=== PATIENT | male | born 1965 | race Caucasian/White ===

== ENCOUNTER 2022-05-01 11:26 | Outpatient (REF) | payer OTHER, SELFPAY ==
[2022-05-01 11:43] LABS: MANUAL DIFF FLAG NO
[2022-05-01 12:14] LABS: Basophils Percent Auto 0.4 % (0-2); Eosinophils Absolute Auto 0.1 X10*3/uL (0.0-0.4); Eosinophils Percent Auto 1.2 % (0-4); Hematocrit 45.7 % (42.0-52.0); Hemoglobin 15.8 g/dl (14.0-18.0); Imm Gran Abs Auto 0.02 X10*3/uL (0.00-0.03); Imm Gran Pct Auto 0.2 % (0.0-0.4); Lymphocytes Absolute Auto 2.7 X10*3/uL (1.2-4.9); Lymphocytes Percent Auto 29.3 % (20-40); Mean Corpuscular HGB Conc 34.6 g/dl (31.0-36.0); Mean Corpuscular Hemoglobin 29.6 pg (27.0-33.0); Mean Corpuscular Volume 85.7 fL (80.0-98.0); Mean Platelet Volume 9.7 fL (9.4-12.4); Monocytes Absolute Auto 0.8 X10*3/uL (0.1-1.2); Monocytes Percent Auto 8.9 % (2-11); Neutrophils Absolute Auto 5.5 x10*3/uL (2.0-8.3); Platelet Count 433 X10*3/uL (160-400); Red Blood Count 5.33 X10*6/uL (4.60-5.80); Red Cell Distribution Width 13.2 % (11.0-16.0); White Blood Count 9.2 X10*3/uL (4.8-10.8)
[2022-05-01 12:51] LABS: Alanine Aminotransferase 49 U/L (0-40); Albumin Level 4.5 g/dL (3.5-5.0); Alkaline Phosphatase 90 U/L (39-117); Anion Gap 14 (12-20); Aspartate Amino Transferase 35 U/L (5-37); Bilirubin Total 0.8 mg/dL (0.0-1.0); Blood Urea Nitrogen 17 mg/dL (9-16); Calcium 9.9 mg/dL (8.4-10.2); Carbon Dioxide 23 mmol/L (22-29); Chloride 109 mmol/L (96-108); Cholesterol 212 mg/dL; Estimated Glomerular Filt Rate > 60; Glucose Fasting 100 mg/dL (60-99); HDL Cholesterol 44 mg/dL; LDL Cholesterol Calculated 131 mg/dl; Potassium 4.4 mmol/L (3.3-5.1); Sodium 142 mmol/L (135-145); Total Protein 7.2 g/dL (6.5-8.0); Triglycerides 189 mg/dL; Uric Acid 6.8 mg/dL (3.4-7.0)
[2022-05-01 12:54] LABS: Erythrocyte Sedimentation Rate 6 MM/HR (0-15)
[2022-05-01 13:07] LABS: Free T4 (Free Thyroxine) 0.81 ng/dL (0.71-1.85); Prostate Specific Antigen 1.31 ng/mL (<0.05-4.0); Thyroid Stimulating Hormone 0.61 uIU/mL (0.32-4.0)
== END 2022-05-01 11:27 | disposition home or self-care (01) ==
LOC: HO.LAB 11:26
PROVIDERS: PCP Internal Medicine Medical Oncology; Visit Provider Internal Medicine Medical Oncology
DX: K21.9 Gastro-esophageal reflux disease without esophagitis (principal); E78.2 Mixed hyperlipidemia; F41.9 Anxiety disorder, unspecified; E66.9 Obesity, unspecified; R41.3 Other amnesia; Z86.59 Personal history of other mental and behavioral disorders; Z12.5 Encounter for screening for malignant neoplasm of prostate
CPT/HCPCS: 36415; 80053; 80061; 84153; 84439; 84443; 84550; 85025; 85652

== ENCOUNTER 2022-10-16 10:58 | Outpatient (REF) | payer OTHER, SELFPAY ==
[2022-10-16 11:32] LABS: MANUAL DIFF FLAG NO
[2022-10-16 12:38] LABS: Basophils Percent Auto 0.5 % (0-2); Eosinophils Absolute Auto 0.2 X10*3/uL (0.0-0.4); Eosinophils Percent Auto 2.8 % (0-4); Hematocrit 48.5 % (42.0-52.0); Hemoglobin 16.9 g/dl (14.0-18.0); Imm Gran Abs Auto 0.02 X10*3/uL (0.00-0.03); Imm Gran Pct Auto 0.2 % (0.0-0.4); Lymphocytes Absolute Auto 2.9 X10*3/uL (1.2-4.9); Lymphocytes Percent Auto 34.2 % (20-40); Mean Corpuscular HGB Conc 34.8 g/dl (31.0-36.0); Mean Corpuscular Hemoglobin 30.4 pg (27.0-33.0); Mean Corpuscular Volume 87.2 fL (80.0-98.0); Mean Platelet Volume 10.7 fL (9.4-12.4); Monocytes Absolute Auto 0.8 X10*3/uL (0.1-1.2); Monocytes Percent Auto 9.1 % (2-11); Neutrophils Absolute Auto 4.5 x10*3/uL (2.0-8.3); Neutrophils Percent Auto 53.2 % (45-73); Platelet Count 362 X10*3/uL (160-400); Red Blood Count 5.56 X10*6/uL (4.60-5.80); White Blood Count 8.5 X10*3/uL (4.8-10.8)
[2022-10-16 13:50] LABS: Alanine Aminotransferase 69 U/L (0-40); Albumin Level 4.3 g/dL (3.5-5.0); Alkaline Phosphatase 88 U/L (39-117); Anion Gap 16 (12-20); Aspartate Amino Transferase 48 U/L (5-37); Bilirubin Total 0.8 mg/dL (0.0-1.0); Blood Urea Nitrogen 18 mg/dL (9-16); Calcium 9.6 mg/dL (8.4-10.2); Carbon Dioxide 21 mmol/L (22-29); Chloride 109 mmol/L (96-108); Cholesterol 221 mg/dL; Estimated Glomerular Filt Rate > 60; Glucose Fasting 110 mg/dL (60-99); HDL Cholesterol 39 mg/dL; LDL Cholesterol Calculated 132 mg/dl; Potassium 4.2 mmol/L (3.3-5.1); Sodium 142 mmol/L (135-145); Total Protein 6.7 g/dL (6.5-8.0); Triglycerides 254 mg/dL
[2022-10-16 14:04] LABS: Prostate Specific Antigen 1.79 ng/mL (<0.05-4.0)
== END 2022-10-16 10:59 | disposition home or self-care (01) ==
LOC: HO.LAB 10:58
PROVIDERS: PCP Internal Medicine Medical Oncology; Visit Provider Internal Medicine Medical Oncology
DX: Z12.5 Encounter for screening for malignant neoplasm of prostate (principal); E78.2 Mixed hyperlipidemia; E66.9 Obesity, unspecified; N40.0 Benign prostatic hyperplasia without lower urinary tract symptoms; M18.12 Unilateral primary osteoarthritis of first carpometacarpal joint, left hand; M18.11 Unilateral primary osteoarthritis of first carpometacarpal joint, right hand
CPT/HCPCS: 36415; 80053; 80061; 82306; 84153; 85025; 99202

== ENCOUNTER 2022-11-06 14:09 | Outpatient (REF) | payer OTHER, SELFPAY ==
--- NOTE | ~2022-11-06 | XR_ITS ---
EXAMINATION: XR SHOULDER, LEFT CLINICAL INFORMATION: Left shoulder pain. COMPARISON: None TECHNIQUE: Three views of the left shoulder. FINDINGS: The bones and soft tissues are normal. No fracture. Glenohumeral and acromioclavicular alignment is anatomic with normal joint space. No abnormal soft tissue calcifications. XR/XR shoulder LT min 2V IMPRESSION: Unremarkable left shoulder.
== END 2022-11-06 14:10 | disposition home or self-care (01) ==
LOC: HO.HOSX 14:09
PROVIDERS: Visit Provider Physician Assistant
DX: M75.102 Unspecified rotator cuff tear or rupture of left shoulder, not specified as traumatic (principal)
CPT/HCPCS: 73030; 99202

== ENCOUNTER 2022-12-07 14:00 | Outpatient (RCR) | payer OTHER, SELFPAY ==
--- NOTE | 2022-12-31 08:42 | MHC.PT.DC ---
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 AT LAST ATTENDED VISIT HE DEMONSTRATED FULL UE ROM. Electronically signed by: JOHN VÁZQUEZ PT DPT Please sign and return to therapist. Thank you for your referral.
== END 2022-12-31 08:42 | disposition home or self-care (01) ==
LOC: HO.PT 14:00
PROVIDERS: PCP Physician Assistant Medical; Visit Provider Physician Assistant
DX: M75.102 Unspecified rotator cuff tear or rupture of left shoulder, not specified as traumatic (principal)
CPT/HCPCS: 97110; 97162; 97530

== ENCOUNTER 2022-12-25 15:58 | Outpatient (REF) | payer OTHER, SELFPAY ==
--- NOTE | ~2022-12-25 | XR_ITS ---
EXAMINATION: XR KNEE, RIGHT CLINICAL INFORMATION: Knee pain COMPARISON: None available. TECHNIQUE: Four views of the right knee. FINDINGS: There is mild loss of tricompartment joint space with mild superior patellar spurring. No acute fracture, lytic or sclerotic process seen. No abnormal joint effusion. XR/XR knee RT 2V IMPRESSION: Mild degenerative changes right knee. No visible acute fracture or dislocation seen.
== END 2022-12-25 15:59 | disposition home or self-care (01) ==
LOC: HO.XRAY 15:58
PROVIDERS: PCP Internal Medicine Medical Oncology; Visit Provider Internal Medicine Medical Oncology
DX: M25.561 Pain in right knee (principal)
CPT/HCPCS: 73560

== ENCOUNTER 2023-02-05 07:34 | Outpatient (REF) | payer OTHER, SELFPAY ==
--- NOTE | ~2023-02-05 | XR_ITS ---
EXAMINATION: XR KNEE AP STANDING XR KNEE, RIGHT AXIAL CLINICAL INFORMATION: Pain. COMPARISON: Right knee radiographs dated 12/25/2022. TECHNIQUE: AP bilateral standing view of the knees was obtained. An axial view of the right knee was obtained. FINDINGS: Bony mineralization is normal. The bilateral lateral and medial joint space compartments are well-maintained. There is mild peripheral osteophyte formation of the medial joint space compartment of the left knee. The right patellofemoral compartment is well-maintained. No fracture or dislocation is seen. There is no significant varus or valgus configuration. The soft tissue planes are unremarkable. XR/XR knee RT 1V IMPRESSION: 1. There is mild osteoarthritic change of the medial joint space compartment of the left knee. 2. No fracture or dislocation is seen. 3. No significant varus or valgus configuration is noted bilaterally.
--- NOTE | ~2023-02-05 | XR_ITS ---
EXAMINATION: XR KNEE AP STANDING XR KNEE, RIGHT AXIAL CLINICAL INFORMATION: Pain. COMPARISON: Right knee radiographs dated 12/25/2022. TECHNIQUE: AP bilateral standing view of the knees was obtained. An axial view of the right knee was obtained. FINDINGS: Bony mineralization is normal. The bilateral lateral and medial joint space compartments are well-maintained. There is mild peripheral osteophyte formation of the medial joint space compartment of the left knee. The right patellofemoral compartment is well-maintained. No fracture or dislocation is seen. There is no significant varus or valgus configuration. The soft tissue planes are unremarkable. XR/XR knee standing BI IMPRESSION: 1. There is mild osteoarthritic change of the medial joint space compartment of the left knee. 2. No fracture or dislocation is seen. 3. No significant varus or valgus configuration is noted bilaterally.
== END 2023-02-05 07:35 | disposition home or self-care (01) ==
LOC: HO.HOSX 07:34
PROVIDERS: Visit Provider Physician Assistant
DX: M17.11 Unilateral primary osteoarthritis, right knee (principal)
CPT/HCPCS: 73560; 73565; 99212

== ENCOUNTER 2023-05-14 19:07 | Outpatient (REF) | payer OTHER, SELFPAY ==
--- NOTE | ~2023-05-14 | MR_ITS ---
EXAMINATION: MR BRAIN WITHOUT CONTRAST CLINICAL INFORMATION: 58-year-old with encephalopathy. Previous head injury in the remote past, trouble finding words. COMPARISON: None available. TECHNIQUE: Multiplanar multisequence MR imaging of the brain was done without IV contrast. FINDINGS: BRAIN VOLUME: Within normal limits within the limitations of qualitative assessment. STRUCTURAL: No malformations. BRAIN AND MENINGES: DWI sequence demonstrates no restricted diffusion to suggest acute or subacute cerebral ischemia. Scattered small foci of FLAIR/T2 signal hyperintensity are seen within the subcortical and deeper white matter of both cerebral hemispheres which are nonspecific findings. There is a 4 mm T2 hyperintense focus in the anterior right external capsule. Slightly prominent perivascular spaces are noted in the left lateral basal ganglia. Posterior fossa structures appear grossly intact. Gradient refocused imaging demonstrates no abnormal susceptibility-weighted signal loss to suggest hemorrhage, hemosiderin staining or abnormal mineralization. No extra-axial fluid collections, space-occupying process or mass effect are identified. VENTRICLES AND SUBARACHNOID SPACES: The ventricular system and subarachnoid spaces are within normal range; there is no hydrocephalus. ORBITAL STRUCTURES: The visualized orbital structures are grossly unremarkable within the limitations of the study. VASCULAR: Signal voids are noted in the visualized major intracranial vessels. OSSEOUS STRUCTURES, SINUSES/MASTOIDS, EXTRACRANIAL SOFT TISSUES: Osseous marrow signal intensity appears homogenous and grossly within normal limits. Small retention cysts are noted in the maxillary sinuses bilaterally and left ethmoid sinus with minor mucosal thickening in the anterior ethmoid complex. Visualized extracranial soft tissue structures appear grossly unremarkable. MR/MR head/brain wo con IMPRESSION: 1. Scattered nonspecific white matter T2 hyperintensities in both cerebral hemispheres are noted. Differential diagnostic considerations include chronic ischemic microangiopathy, migraine-associated vasculopathy, nonspecific foci of postinflammatory gliosis or demyelination, vasculitis and other forms of vasculopathy. 2. No acute intracranial process. No evidence for hemorrhage, extra-axial fluid collection, space-occupying process, mass effect or hydrocephalus. 3. Mild paranasal sinus inflammatory changes.
== END 2023-05-14 19:08 | disposition home or self-care (01) ==
LOC: HO.MRI 19:07
PROVIDERS: PCP Internal Medicine Medical Oncology; Visit Provider Psychiatry & Neurology Neurology
DX: G93.40 Encephalopathy, unspecified (principal)
CPT/HCPCS: 70551

== ENCOUNTER 2023-08-20 10:11 | Outpatient (REF) | payer OTHER, SELFPAY ==
[2023-08-20 11:33] LABS: Erythrocyte Sedimentation Rate 5 MM/HR (0-15)
[2023-08-20 11:37] LABS: Syphilis Screen Nonreactive (Nonreactive)
[2023-08-22 02:59] LABS: Lyme Abs Screen <0.90 index
[2023-08-24 13:28] LABS: Anti Nuclear Antibody Pattern Nuclear, Speckled; Anti Nuclear Antibody Screen POSITIVE (NEGATIVE)
[2023-08-26 22:18] LABS: PTT (LAC) Screen 36 sec (<=40)
[2023-08-27 13:49] LABS: IgA 158 mg/dL (47-310); IgG 957 mg/dL (600-1640); IgM 104 mg/dL (50-300)
== END 2023-08-20 10:12 | disposition home or self-care (01) ==
LOC: HO.LAB 10:11
PROVIDERS: PCP Internal Medicine Medical Oncology; Visit Provider Psychiatry & Neurology Neurology
DX: I63.50 Cerebral infarction due to unspecified occlusion or stenosis of unspecified cerebral artery (principal); I10 Essential (primary) hypertension; R73.03 Prediabetes
CPT/HCPCS: 36415; 82784; 85597; 85598; 85613; 85652; 85730; 86038; 86039; 86334; 86617; 86618; 86780

== ENCOUNTER 2023-10-17 10:57 | Outpatient (REF) | payer OTHER, SELFPAY ==
[2023-10-17 11:19] LABS: MANUAL DIFF FLAG NO
[2023-10-17 12:00] LABS: Basophils Percent Auto 0.5 % (0-2); Eosinophils Absolute Auto 0.1 X10*3/uL (0.0-0.4); Eosinophils Percent Auto 1.5 % (0-4); Hematocrit 47.1 % (42.0-52.0); Hemoglobin 16.1 g/dl (14.0-18.0); Imm Gran Abs Auto 0.02 X10*3/uL (0.00-0.03); Imm Gran Pct Auto 0.2 % (0.0-0.4); Lymphocytes Absolute Auto 2.8 X10*3/uL (1.2-4.9); Lymphocytes Percent Auto 32.3 % (20-40); Mean Corpuscular HGB Conc 34.2 g/dl (31.0-36.0); Mean Corpuscular Hemoglobin 30.2 pg (27.0-33.0); Mean Corpuscular Volume 88.4 fL (80.0-98.0); Mean Platelet Volume 10.3 fL (9.4-12.4); Monocytes Absolute Auto 0.7 X10*3/uL (0.1-1.2); Monocytes Percent Auto 7.6 % (2-11); Neutrophils Absolute Auto 5.1 x10*3/uL (2.0-8.3); Neutrophils Percent Auto 57.9 % (45-73); Platelet Count 382 X10*3/uL (160-400); Red Blood Count 5.33 X10*6/uL (4.60-5.80); Red Cell Distribution Width 12.7 % (11.0-16.0); White Blood Count 8.7 X10*3/uL (4.8-10.8)
[2023-10-17 12:22] LABS: Alanine Aminotransferase 42 U/L (0-40); Albumin Level 4.4 g/dL (3.5-5.0); Alkaline Phosphatase 88 U/L (39-117); Anion Gap 11 (12-20); Aspartate Amino Transferase 38 U/L (5-37); Bilirubin Total 0.7 mg/dL (0.0-1.0); Blood Urea Nitrogen 21 mg/dL (9-16); Carbon Dioxide 31 mmol/L (22-29); Chloride 104 mmol/L (96-108); Cholesterol 189 mg/dL (<200); Estimated Glomerular Filt Rate > 60; Glucose Fasting 105 mg/dL (60-99); HDL Cholesterol 42 mg/dL (>40); LDL Cholesterol Calculated 122 mg/dL (<100); Potassium 4.7 mmol/L (3.3-5.1); Sodium 141 mmol/L (135-145); Total Protein 7.2 g/dL (6.5-8.0); Triglycerides 127 mg/dL (<150)
[2023-10-17 12:36] LABS: Prostate Specific Antigen 1.88 ng/mL (<0.05-4.0)
== END 2023-10-17 10:58 | disposition home or self-care (01) ==
LOC: HO.LAB 10:57
PROVIDERS: Visit Provider Internal Medicine Medical Oncology
DX: Z12.5 Encounter for screening for malignant neoplasm of prostate (principal); E78.2 Mixed hyperlipidemia; E66.9 Obesity, unspecified; N40.0 Benign prostatic hyperplasia without lower urinary tract symptoms
CPT/HCPCS: 36415; 80053; 80061; 84153; 85025

== ENCOUNTER 2024-10-26 11:08 | Outpatient (REF) | payer MEDICARE, SELFPAY ==
[2024-10-26 11:22] LABS: MANUAL DIFF FLAG NO
[2024-10-26 11:33] LABS: Basophils Percent Auto 0.6 % (0-2); Eosinophils Absolute Auto 0.2 X10*3/uL (0.0-0.4); Eosinophils Percent Auto 2.3 % (0-4); Hematocrit 45.2 % (42.0-52.0); Hemoglobin 15.3 g/dl (14.0-18.0); Imm Gran Abs Auto 0.01 X10*3/uL (0.00-0.03); Imm Gran Pct Auto 0.2 % (0.0-0.4); Lymphocytes Absolute Auto 2.3 X10*3/uL (1.2-4.9); Lymphocytes Percent Auto 34.1 % (20-40); Mean Corpuscular HGB Conc 33.8 g/dl (31.0-36.0); Mean Corpuscular Hemoglobin 30.2 pg (27.0-33.0); Mean Corpuscular Volume 89.2 fL (80.0-98.0); Mean Platelet Volume 9.6 fL (9.4-12.4); Monocytes Absolute Auto 0.6 X10*3/uL (0.1-1.2); Monocytes Percent Auto 9.2 % (2-11); Neutrophils Absolute Auto 3.6 x10*3/uL (2.0-8.3); Neutrophils Percent Auto 53.6 % (45-73); Platelet Count 345 X10*3/uL (160-400); Red Blood Count 5.07 X10*6/uL (4.60-5.80); Red Cell Distribution Width 12.7 % (11.0-16.0); White Blood Count 6.7 X10*3/uL (4.8-10.8)
[2024-10-26 12:20] LABS: Prostate Specific Antigen 1.95 ng/mL (<0.05-4.0)
--- OUTSIDE RECORDS SUMMARY | 2024-10-26 12:51 | XMS_ITS ---
Author Organization Soto France III, MD Address [address] [place] [address] [address] [place] [address] Care Team Providers Care Gis Application Developer Name Role Phone Soto France Primary Care Provider Allergies Allergen (clinical drug ingredient) Drug/Non Drug Allergy documented on EMR Reaction Allergy Type Onset Date Status ibuprofen Ibuprofen Unknown Drug Allergy Active Yellow Jacket Venom Unknown Drug Allergy Active naproxen Naprosyn Unknown Drug Allergy Active REASON FOR VISIT depression, gerd, BPH, BCE, memory loss Medications Medication SIG (Take, Route, Fr equency, Duration) Notes Start Date End Date Status Omeprazole 20 MG TAKE 1 CAPSULE BY MO UTH EVERY DAY Active Lisinopril 5 MG TAKE 1 TABLET BY KIARRA TH EVERY DAY Active clomiPRAMINE HCl 75 MG 1 capsule at bedt amanda Orally Once a day Active Centrum Silver - Orally Act marco a Simvastatin 20 MG TAKE 1 TABLET BY KIARRA TH EVERY DAY IN THE EVENING Active Social History Sex Assigned At : Social History Observation Description Sex Assigned At Male Alcohol Screen Question Answer Notes Did you have a drink containing alcohol in the p ast year? No Points 0 Interpretation Negative Problems Problem Type SNOMED Code ICD Code Onset Dates Problem Status W/U Status Risk Notes Problem [id number] History of depression (Z86.59) Active confirmed He was instructed to continue to see his therapist weekly and to take his antidepressant medication. He will be seen here frequently and his medications adjusted. It is felt that the therapist can get him to see a prescriber. Vital Signs Temperature 98.3 degrees Fahrenheit 07/02/20 24 Blood pressure systolic 107 mm Hg 07/02/20 24 Blood pressure diastolic 79 mm Hg 024 Heart Rate 79 /min 07/02/2024 Height 69 in 07/02/2024 Weight 191 lbs 07/02/2024 BMI 28.2 kg/m2 07/02/2024 Encounters Encounter Location Date Provider Diagnosis Soto France III, MD [address] [place] [address] [place] [address] 07/02/2024 Soto France Mixed hyperlipidemia E78.2 ; History of depression Z86.59 ; BPH (benign prostatic hyperplasia) N40.0 ; Overweight E66.3 ; Former smoker Z87.891 ; GERD without esophagitis K21.9 ; History of umbilical hernia Z87.19 and Hiatal hernia K44.9 Assessments Encounter Date Diagnosis (ICD Code) Assessment Notes Treat ment Notes Treatment Clinical Notes 07/02/2024 Mixed hyperlipidemia (ICD-10 - E78.2) No recent blood work is available. We have discussed diet and nutrition today. Comprehensive blood work with a fasting lipid profile will be done in the near future. 07/02/2024 History of depression (ICD-10 - Z86.59) He was instructed to continue to see his therapist weekly and to take his antidepressant medication. He will be seen here frequently and his medications adjusted. It is felt that the therapist can get him to see a prescriber. 07/02/2024 BPH (benign prostatic hyperplasia) (ICD-10 - N40.0) He rises from sleep on the average of once a night. We have discussed several lifestyle modifications he could make to avoid nocturia. 07/02/2024 Overweight (ICD-10 - E66.3) He has lost 2 pounds his body mass index is 28.2. We discussed diet and nutrition and a weight loss strategy. He will try to lose weight at a rate of one half of a pound per week. 07/02/2024 Former smoker (ICD-10 - Z87.891) He is highly motivated not to smoke. We discussed a plan to prevent relapse in times of stress and illness. 07/02/2024 GERD without esophagitis (ICD-10 - K21.9) His reflux symptoms have been well-controlled with [id number] medication. These were continued. 07/02/2024 History of umbilical hernia (ICD-10 - Z87.19) He is free of any symptoms at this time. He feels occasional pressure with sustained abdominal contraction but is otherwise free of pain 07/02/2024 Hiatal hernia (ICD-10 - K44.9) His symptoms have been mild and limited to the epigastric area. His nutritional status is good and his weight is stable. Plan Of Treatment Medication Medication Name Sig Start Date Stop Date Notes Omeprazole 20 MG TAKE 1 CAPSULE BY MOUTH EVERY DAY Lisinopril 5 MG TAKE 1 TABLET BY MOUTH EVERY DAY clomiPRAMINE HCl 75 MG 1 capsule at bedt amanda Orally Once a day Centrum Silver - Orally Simvastatin 20 MG TAKE 1 TABLET BY KIARRA TH EVERY DAY IN THE EVENING Pending Test Test Name Order Date PROFILE, FASTING (COMPREHENSIVE METABOLI C) 07/02/2024 PSA, TOTAL 07/02/2024 CBC WITH AUTO DIFF 07/02/2024 Lipid Panel 07/02/2024 Next Appt Details Follow Up: As Scheduled, Oct rupamela, Reason: OV, Routine check-up Provider Name:Soto France, 10/28/2024 03:00:00 PM, [address] [place] [address] [address], [place], [address], Progress Notes * SADI SANCHEZDOB: 4 (59 yo M)Acc No.[id number]:07/02/2024 Progress Notes Patient:?AMOL SADI Duong Provider:?Soto France MD :1965???Age:59 Y???Sex:Male Tony e:07/02/2024 Address:[address] [id number] Subjective: * Chief Complaints: * ???DepressionGerdBPHBCEMemor y loss * HPI: ???COVID-19 Screening:?Questions?Have you experienced fever, chills, cough, sore throat, shortness of breath, difficulty breathing, muscle aches, loss of taste or smell??No ?Have you been exposed to the virus within the last 10 days??No ?Have you travelled internationally in the last 10 days??No ?Have you been exposed to COVID-19 in the past??No ???:? The patient, a 59-year-old male, presented with a history of feeling lightheaded and right ear pain, which was first noticed a couple of months ago. The symptoms have since faded away. He also reported occasional bloody noses, which started about a year ago. The patient also mentioned a pain in his back, particularly when lifting heavy objects or after sitting for extended periods. He also reported that his heart races when he goes to the gym. The patient has been experiencing these symptoms intermittently and their severity varies. The symptoms are located in the right ear, nose, back, and heart. The quality of the symptoms is described as pain and discomfort. The patient did not mention any specific triggers for these symptoms. The patient reported that his symptoms get worse when he lifts heavy objects or sits for long periods. There were no other associated signs and symptoms reported. The patient did not mention any vitals. The patient's perspective on his illness is that he is generally doing okay, but he is concerned about his recurring bloody noses and back pain. * ROS:?General/Constitutional:?pain?only normal aches and pains.?Chills?denies.?Fatigue?admits.?Fever?denies.?ENT:?Decreased hearing?mild.?Respiratory:?Cough?denies.?Cardiovascular:?Chest pain with exertion?denies.?Dyspnea on exertion?denies.?Shortness of breath?denies.?Gastrointestinal:?Constipation?denies.?Decreased appetite?denies.?Diarrhea?denies.?Heartburn?denies.?Nausea?denies.?Rectal bleeding?denies.?Vomiting?denies.?Hematology:?bruising?denies.?petechiae?denies.?Swollen glands?none have been noted.?Genitourinary:?Frequent urination?once a night.?Musculoskeletal:?Muscle aches?denies.?Painful joints?denies.?Sciatica?denies.?Weakness?denies.?Skin:?Itching?denies.?Rash?denies.?Skin lesion(s)?denies.?Neurologic:?Difficulty speaking?denies.?Dizziness?denies.?Headache?denies.?Low back pain?denies.?Psychiatric:?Depressed mood?which is mild.? * Medical History:? * Surgical History:?umbilical hernia repair olonoscopy age 51No history * Hospitalization/Major Diagno stic Procedure:?allergic reaction 10/2018[facility] few hours 04/2020Memory loss [facility] 10/2020No history * Family History:?Father: dece ased 71 yrs, Cardiac arrest.?Mother: 68 yrs, Complications of pneumonia.?1 brother(s) - healthy. .? He has one brother who is alive and well and one sister who seems healthy. He has no biological children. One of his grandmothers has a history of breast cancer. A grandfather had a history of bone cancer at the age of 90. He is not aware of any family history of substance use disorder or mental illness. * Social History:?Tobacco Use:?Tobacco Use/Smoking?.?Drugs/Alcohol:?Drugs?Have you used drugs other than those for medical reasons in the past 12 months??No ?Alcohol Screen?Did you have a drink containing alcohol in the past year??No ?Points?0 ?Interpretation?Negative ???He has been to Josette for 7 years. She has 4 children. They have been together for 21 years. He is working for [employer] and has no toxic exposures. The patient does not smoke and does not get up at night to urinate much. He works out at the gym and takes a pre-workout supplement. * Medications:?TakingLisinopri l 5 MG Tablet TAKE 1 TABLET BY MOUTH EVERY DAY Omeprazole 20 MG Capsule Delayed Release TAKE 1 CAPSULE BY MOUTH EVERY DAY Simvastatin 20 MG Tablet TAKE 1 TABLET BY MOUTH EVERY DAY IN THE EVENING Centrum Silver - Tablet Orally clomiPRAMINE HCl 75 MG Capsule 1 capsule at bedtime Orally Once a day Medication List reviewed and reconciled with the patientTaking Lisinopril 5 MG Tablet TAKE 1 TABLET BY MOUTH EVERY DAY Taking Omeprazole 20 MG Capsule Delayed Release TAKE 1 CAPSULE BY MOUTH EVERY DAY Taking Simvastatin 20 MG Tablet TAKE 1 TABLET BY MOUTH EVERY DAY IN THE EVENING Taking Centrum Silver - Tablet Orally Taking clomiPRAMINE HCl 75 MG Capsule 1 capsule at bedtime Orally Once a day Medication List reviewed and reconciled with the patient * Allergies:?NaprosynIbuprofen Yellow Jacket Venomno[Allergies Verified] Objective: * Vitals:?Ht: 69, Wt: 191, BMI :28.2, BP: 107/79, HR: 79, Temp: 98.3, Wt-k.64. * Examination: ???General Examination: ?GENERAL APPEARANCE:?pleasant, well nourished, well developed, in no acute distress, calm and relaxed, overweight, man.?HEAD:?atraumatic, normocephalic.?EYES:?eomi, perrla, anicteric, conjugate.?EARS:?normal.?NOSE:?septum intact.?ORAL CAVITY:?normal, unremarkable.?NECK/THYROID:?no jugular venous distention, no carotid bruit, thyroid normal.?LYMPH NODES:?no enlarged lymph nodes,spleen normal.?SKIN:?no suspicious lesions, anicteric.?HEART:?no clicks, gallops, murmurs, or rubs, regular rhythm, S1, S2 normal, no s3, or vascular bruits.?LUNGS:?, diminished breath sounds throughout, no wheezes, rales, rhonchi, good air movement.?BREASTS:??no masses palpable bilaterally.?ABDOMEN:?bowel sounds normal, no ascites, no organomegaly, no mass, overweight, Hold umbilical herniorrhaphy scar.?RECTAL EXAM:?not examined.?MUSCULOSKELETAL:?extremities unremarkable, no clubbing, cyanosis or edema.?PERIPHERAL PULSES:?normal.?NEUROLOGIC:?alert and oriented, cranial nerves 2-12 grossly intact, deep tendon reflexes 2+ symmetrical, motor strength normal upper and lower extremities, sensory exam intact.?PSYCH:?alert, oriented.? : ???Ear Examination:No issues found, Blood Pressure Check: Normal, Heart Rate Check: Normal, Back Examination: Pain found when lifting heavy objects or after sitting for long periods. ??? Assessment: * Assessment: 1.?History of depression - Z 86.59 (Primary)???Notes :He was instructed to continue to see his therapist weekly and to take his antidepressant medication. He will be seen here frequently and his medications adjusted. It is felt that the therapist can get him to see a prescriber.???2.?Mixed hyperlipidemia - E78.2???Notes :No recent blood work is available.? We have discussed diet and nutrition today.? Comprehensive blood work with a fasting lipid profile will be done in the near future.???3.?BPH (benign prostatic hyperplasia) - N40.0???Notes :He rises from sleep on the average of once a night.? We have discussed several lifestyle modifications he could make to avoid nocturia.???4.?Overweight - E66.3???Notes :He has lost 2 pounds his body mass index is 28.2.? We discussed diet and nutrition and a weight loss strategy.? He will try to lose weight at a rate of one half of a pound per week.???5.?Former smoker - Z87.891???Notes :He is highly motivated not to smoke. We discussed a plan to prevent relapse in times of stress and illness.???6.?GERD without esophagitis - K21.9???Notes :His reflux symptoms have been well-controlled with ebju-vua-vlhtikc medication. These were continued.???7.?History of umbilical hernia - Z87.19???Notes :He is free of any symptoms at this time. He feels occasional pressure with sustained abdominal contraction but is otherwise free of pain???8.?Hiatal hernia - K44.9???Notes :His symptoms have been mild and limited to the epigastric area. His nutritional status is good and his weight is stable.??? Plan: * Treatment: 2.?BPH (benign prostatic hyp erplasia)?LAB: PROFILE, FASTING (COMPREHENSIVE METABOLIC) ?LAB: PSA, TOTAL ?LAB: CBC WITH AUTO DIFF ?LAB: Lipid Panel 3.?Overweight?LAB: PROFILE, FASTING (COMPREHENSIVE METABOLIC) ?LAB: PSA, TOTAL ?LAB: CBC WITH AUTO DIFF ?LAB: Lipid Panel 4.?Others? Continue Lisinopril Tablet, 5 MG, TAKE 1 TABLET BY MOUTH EVERY DAY;?Continue Omeprazole Capsule Delayed Release, 20 MG, TAKE 1 CAPSULE BY MOUTH EVERY DAY;?Continue Simvastatin Tablet, 20 MG, TAKE 1 TABLET BY MOUTH EVERY DAY IN THE EVENING;?Continue Centrum Silver Tablet, -, Orally;?Continue clomiPRAMINE HCl Capsule, 75 MG, 1 capsule at bedtime, Orally, Once a day.?? * Procedure Codes:? * Preventive Medicine:? ??Counseling:?Care goal follow-up plan:?Counseling for abnormal BMI given?Yes ?Above Normal BMI Follow-up?Dietary management education, guidance, and counseling, Dietary needs education, Exercise promotion: strength training, Exercise promotion: stretching, Feeding regime, Giving encouragement to exercise, Lifestyle education regarding diet, Nutrition / feeding management, Nutrition therapy, Prescribed activity/exercise education, Prescribed diet education, Prescribed dietary intake, Special diet education, Weight monitoring , Intervention, Order not done: Medical or Other reason not done * Follow Up:?As Scheduled, Oct (Reason: OV, Routine check-up) * Images: * Sign off status: Completed true * Provider:?Soto France MD Date:?06/04 Generated for Printi ng/Andreas/eTransmitting on:?10/26/2024 12:51 PM EST History and Physical Notes * HPI (History of Present Illness) Category Sub-Category Detail Notes COVID-19 Screening Questions Have you had any new onset fever, chills, cough, congestion, sore throat, shortness of breath, muscle aches?: No Have you been exposed to the virus withi n the last 10 days?: No Have you travelled internationally in e last 10 days?: No Have you been exposed to COVID-19 in the past?: No Examination Category Sub-Category Detail Notes General Examination GENERAL APPEARANCE: pleasant , well nourished, well developed, in no acute distress, calm and relaxed, overweight, man HEAD: atraumatic, normocep halic EYES: eomi, perrla, anicte jannet, conjugate EARS: normal NOSE: septum intact NECK/THYROID: no jugular venous di stention, no carotid bruit, thyroid normal HEART: no clicks, gallops, murmurs, or rubs, regular rhythm, S1, S2 normal, no s3, or vascular bruits LUNGS: , diminished breath sounds throughout, no wheezes, rales, rhonchi, good air movement ABDOMEN: bowel sounds normal, no ascites, no organomegaly, no mass, overweight, Hold umbilical herniorrhaphy scar NEUROLOGIC: alert and oriented, cranial nerves 2-12 grossly intact, deep tendon reflexes 2+ symmetrical, motor strength normal upper and lower extremities, sensory exam intact SKIN: no suspicious lesion s, anicteric PERIPHERAL PULSES: normal BREASTS: no masses palpable b ilaterally MUSCULOSKELETAL: extremities unremark able, no clubbing, cyanosis or edema LYMPH NODES: no enlarged lymph no casie,spleen normal RECTAL EXAM: not examined PSYCH: alert, oriented ORAL CAVITY: normal, unremarkable
--- OUTSIDE RECORDS SUMMARY | 2024-10-26 12:51 | XMS_ITS ---
Author Organization Soto France III, MD Address [address] [place] [address] [place] [address] Care Team Providers Care Child Development Specialist Name Role Phone Soto France Primary Care Provider REASON FOR VISIT Message Social History Sex Assigned At : Social History Observation Description Sex Assigned At Male Encounters Encounter Location Date Provider Diagnosis Stoo France III, MD [address] [place] [address] [place] [address] 10/21/2024 Soto France Plan Of Treatment Next Appt Details Provider Name:Soto France, 10/28/2024 03:00:00 PM, [address] [place] [address] [place], [address], Progress Notes * SADI SANCHEZDOB: [birth year] (59 yo M)Acc No.[id number]:10/21/2024 Patient:?SADI SANCHEZ :1965???Age:59 Y???Sex:Male Address:[address] [place], [address] * * Date:?
--- OUTSIDE RECORDS SUMMARY | 2024-10-26 12:51 | XMS_ITS | Patient Health Record ---
Author Organization Soto France III, MD Address [address] [place] [address] [place] [address] Care Team Providers Care Nuclear Plant Operator Name Role Phone Soto France Primary Care Provider [phone] Allergies Allergen (clinical drug ingredient) Drug/Non Drug Allergy documented on EMR Reaction Allergy Type Onset Date Status ibuprofen Ibuprofen Unknown Drug Allergy Active Yellow Jacket Venom Unknown Drug Allergy Active naproxen Naprosyn Unknown Drug Allergy Active Results Component Value Reference Range Notes Complete Blood Count Auto Di ff (Not yet reviewed by provider) Interpretation: Performing Lab:[facility], [address] [place] [id number] Notes/Report: White Blood Count 6.7 4.8-10.8 X10*3/uL Red Blood Count 5.07 4.60-5.80 X10*6/uL Hemoglobin 15.3 14.0-18.0 g/dl Hematocrit 45.2 42.0-52.0 % Mean Corpuscular Volume 89.2 80.0-98.0 fL Mean Corpuscular Hemoglobin 30.2 27.0-33.0 pg Mean Corpuscular HGB Conc 33.8 31.0-36.0 g/dl Red Cell Distribution Width 12.7 11.0-16.0 % Platelet Count 345 160-400 X10*3/uL Mean Platelet Volume 9.6 9.4-12.4 fL Neutrophils Percent Auto 53.6 45-73 % Imm Gran Pct Auto 0.2 0.0-0.4 % Lymphocytes Percent Auto 34.1 20-40 % Monocytes Percent Auto 9.2 2-11 % Eosinophils Percent Auto 2.3 0-4 % Basophils Percent Auto 0.6 0-2 % NRBC Pct Auto 0.0 0.0-0.2 /100WBC Neutrophils Absolute Auto 3.6 2.0-8.3 x10*3/u L Imm Gran Abs Auto 0.01 0.00-0.03 X10*3/uL Lymphocytes Absolute Auto 2.3 1.2-4.9 X10*3/u L Monocytes Absolute Auto 0.6 0.1-1.2 X10*3/uL Eosinophils Absolute Auto 0.2 0.0-0.4 X10*3/u L Basophils Absolute Auto 0.0 0.0-0.2 X10*3/uL NRBC Abs Auto 0.000 0.0-0.012 X10*3/uL Prostate Specific Antigen ( Not yet reviewed by provider) Interpretation: Performing Lab:[facility], [address] [place] [phone] Notes/Report: Prostate Specific Antigen 1.95 <0.05-4.0 ng/mL PSA methodology: Mart Alinity i Chemiluminescent Microparticle Immunoassay (CMIA) Reason For Referral Reason Consult and Treat 6 months of right ear pain with normal exam. Long Hx of smoking. Diagnosis 1 Ear pain, right (H92 .01) Referral Organization Soto France III, MD Referring Provider First Name Soto Referring Provider Last Name Román Referring Provider Speciality Internal M edicine Referred Provider [facility] Referred Provider Specialty Otolaryngolo gy General Notes Ting Ponce ASMDario 01/28/2024 02:55:01 PM >Notes faxed Referral Priority Routine Referral Appointment Date 11/13/2024 Medications Medication SIG (Take, Route, Fr equency, Duration) Notes Start Date End Date Status Omeprazole 20 MG TAKE 1 CAPSULE BY MO UTH EVERY DAY Active Lisinopril 5 MG TAKE 1 TABLET BY KIARRA TH EVERY DAY Active clomiPRAMINE HCl 75 MG 1 capsule at bedt amanda Orally Once a day Active Centrum Silver - Orally Act sophie Simvastatin 20 MG TAKE 1 TABLET BY KIARRA TH EVERY DAY IN THE EVENING Active Immunizations Vaccine Route Administration Date Status Comme nts Influenza, quad IM Intramuscular 06/07/2020 Administered Influenza, quad IM Intramuscular 06/15/2022 Administered Influenza, quad IM Intramuscular 06/25/2023 Administered Social History Sex Assigned At : Social History Observation Description Sex Assigned At Male Alcohol Screen Question Answer Notes Did you have a drink containing alcohol in the p ast year? No Points 0 Interpretation Negative Problems Problem Type SNOMED Code ICD Code Onset Dates Problem Status W/U Status Risk Notes Problem 6435672 Former smoker (Z87.891) Active confirmed He is highly motivated not to smoke. We discussed a plan to prevent relapse in times of stress and illness. Problem 732121668 Overweight (E66.3) Active confirmed He has lost 2 pounds his body mass index is 28.2. We discussed diet and nutrition and a weight loss strategy. He will try to lose weight at a rate of one half of a pound per week. Problem [id number] Obesity (BMI 30.0-34.9) (E66.9) Active confirmed We have discussed his diet and his nutrition. He is trying to lose weight. We have reviewed his weight loss strategy. We made a plan to lose weight at a rate of one half of a pound per week. Problem 73505134 Anxiety (F41.9) Active confirmed He has been taking his medication. He is beginning to feel better. His issues at work or less pressing now. Problem 784441311 Mixed hyperlipidemia (E78.2) Active confirmed No recent blood work is available. We have discussed diet and nutrition today. Comprehensive blood work with a fasting lipid profile will be done in the near future. Problem 810151566 GERD without esophagitis (K21.9) Active confirmed His reflux symptoms have been well-controlled with wcoh-ugk-uxrhod r medication. These were continued. Problem Benign prostatic hyperplasia (929325045) BPH (benign prostatic hyperplasia) (N40.0) Active confirmed He rises from sleep on the average of once a night. We have discussed several lifestyle modifications he could make to avoid nocturia. Problem 55489997 Memory loss (R41.3) Active confirmed He is no longer complaining about his memory. He seemed intact today. Problem 25922976 Hiatal hernia (K44.9) Active confirmed His symptoms have been mild and limited to the epigastric area. His nutritional status is good and his weight is stable. Problem Basal cell carcinoma (0930294) Basal cell carcinoma (C44.91) Active confirmed The lesion was excised from the right side of his head this morning. We will await the pathology and the margins report. Problem 773220467 History of umbilical hernia (Z87.19) Active confirmed He is free o f any symptoms at this time. He feels occasional pressure with sustained abdominal contraction but is otherwise free of pain Problem 714603856 History of depression (Z86.59) Active confirmed He was instructed to continue to see his therapist weekly and to take his antidepressant medication. He will be seen here frequently and his medications adjusted. It is felt that the therapist can get him to see a prescriber. Problem 767018537 Renal cyst, left (N28.1) Active confirmed A repeat image of the kidney is due. Problem 6914623794 Persistent depressive disorder (F34.1) Active confirmed He was continued on his current antidepressant. Close followup was arranged. There was no indication of self harm or suicidal intent. Vital Signs Heart Rate 79 /min 07/02/2024 Temperature 98.3 degrees Fahrenheit 07/02/2024 Blood pressure diastolic 79 mm Hg 07/02/2024 Height 69 in 07/02/2024 Blood pressure systolic 107 mm Hg 07/02/2024 Weight 191 lbs 07/02/2024 BMI 28.2 kg/m2 07/02/2024 Encounters Encounter Location Date Provider Diagnosis Soto France III, MD [address] [place] [address] [place] [address] 01/24/2024 Soto [place] History of umbilical hernia Z87.19 ; Ear pain, right H92.01 ; Former smoker Z87.891 ; GERD without esophagitis K21.9 ; Mixed hyperlipidemia E78.2 ; Persistent depressive disorder F34.1 and Overweight E66.3 Soto France III, MD [address] [place] [address] [place] [address] 02/07/2024 Soto [place] History of umbilical hernia Z87.19 ; Mixed hyperlipidemia E78.2 ; GERD without esophagitis K21.9 ; Former smoker Z87.891 ; Persistent depressive disorder F34.1 ; BPH (benign prostatic hyperplasia) N40.0 ; Overweight E66.3 and Right ear pain H92.01 Soto France III, MD [address] [place] [address] [place] [address] 04/09/2024 Soto France GERD without esophag itis K21.9 ; Mixed hyperlipidemia E78.2 ; Former smoker Z87.891 ; Anxiety F41.9 ; Overweight E66.3 ; Basal cell carcinoma C44.91 and Persistent depressive disorder F34.1 Soto France III, MD [address] [place] [address] [place] [address] 07/02/2024 Soto France Mixed hyperlipidemia E78.2 ; History of depression Z86.59 ; BPH (benign prostatic hyperplasia) N40.0 ; Overweight E66.3 ; Former smoker Z87.891 ; GERD without esophagitis K21.9 ; History of umbilical hernia Z87.19 and Hiatal hernia K44.9 Soto France III, MD [address] [place] [address] [place] [address] 10/21/2024 Soto France III, MD [address] [place] [address] [place] [address] 09/04/2024 Soto France Assessments Encounter Date Diagnosis (ICD Code) Assessment Notes Treat ment Notes Treatment Clinical Notes 01/24/2024 History of umbilical hernia (ICD-10 - Z87.19) He is free of any symptoms at this time. He feels occasional pressure with sustained abdominal contraction but is otherwise free of pain 01/24/2024 Ear pain, right (ICD-10 - H92.01) He will be given a course of antibiotics and a follow-up visit. 02/07/2024 Mixed hyperlipidemia (ICD-10 - E78.2) His lipids are currently stable and no change in his regimen was necessary. 02/07/2024 History of umbilical hernia (ICD-10 - Z87.19) He is free of any symptoms at this time. He feels occasional pressure with sustained abdominal contraction but is otherwise free of pain 04/09/2024 Mixed hyperlipidemia (ICD-10 - E78.2) His lipids are currently stable and no change in his regimen was necessary. 04/09/2024 GERD without esophagitis (ICD-10 - K21.9) His reflux symptoms have been well-controlled with royw-jil-tiokzsc medication. These were continued. 07/02/2024 Mixed hyperlipidemia (ICD-10 - E78.2) No [...] can get him to see a prescriber. 01/24/2024 Former smoker (ICD-10 - Z87.891) He is highly motivated not to smoke. We discussed a plan to prevent relapse in times of stress and illness. 02/07/2024 GERD without esophagitis (ICD-10 - K21.9) His reflux symptoms have been well-controlled with gtmx-ixg-yljxwzc medication. These were continued. 04/09/2024 Former smoker (ICD-10 - Z87.891) He is highly motivated not to smoke. We discussed a plan to prevent relapse in times of stress and illness. 07/02/2024 BPH (benign prostatic hyperplasia) (ICD-10 - N40.0) He rises from sleep on the average of once a night. We have discussed several lifestyle modifications he could make to avoid nocturia. 01/24/2024 GERD without esophagitis (ICD-10 - K21.9) His reflux symptoms have been well-controlled with ufdj-yfj-drpawel medication. These were continued. 02/07/2024 Former smoker (ICD-10 - Z87.891) He is highly motivated not to smoke. We discussed a plan to prevent relapse in times of stress and illness. 04/09/2024 Anxiety (ICD-10 - F41.9) He has been taking his medication. He is beginning to feel better. His issues at work or less pressing now. 07/02/2024 Overweight (ICD-10 - E66.3) He has lost 2 pounds his body mass index is 28.2. We discussed diet and nutrition and a weight loss strategy. He will try to lose weight at a rate of one half of a pound per week. 01/24/2024 Mixed hyperlipidemia (ICD-10 - E78.2) His lipids are currently stable and no change in his regimen was necessary. 02/07/2024 Persistent depressive disorder (ICD-10 - F34.1) He was continued on his current antidepressant. Close followup was arranged. There was no indication of self harm or suicidal intent. 04/09/2024 Overweight (ICD-10 - E66.3) He has lost 12 pounds and his body mass index is 29. I encouraged him to continue to lose weight. We reviewed his weight loss strategy. 07/02/2024 Former smoker (ICD-10 - Z87.891) He is highly motivated not to smoke. We discussed a plan to prevent relapse in times of stress and illness. 01/24/2024 Persistent depressive disorder (ICD-10 - F34.1) He was continued on his current antidepressant. Close followup was arranged. There was no indication of self harm or suicidal intent. 02/07/2024 BPH (benign prostatic hyperplasia) (ICD-10 - N40.0) He is limiting his fluid intake at night and now arises only once a night to urinate. 04/09/2024 Basal cell carcinoma (ICD-10 - C44.91) The lesion was excised from the right side of his head this morning. We will await the pathology and the margins report. 07/02/2024 GERD without esophagitis (ICD-10 - K21.9) His reflux symptoms have been well-controlled with kejc-ckd-zfhllis medication. These were continued. 01/24/2024 Overweight (ICD-10 - E66.3) He has lost 12 pounds and his body mass index is 29. I encouraged him to continue to lose weight. We reviewed his weight loss strategy. 02/07/2024 Overweight (ICD-10 - E66.3) He has lost 12 pounds and his body mass index is 29. I encouraged him to continue to lose weight. We reviewed his weight loss strategy. 04/09/2024 Persistent depressive disorder (ICD-10 - F34.1) He was continued on his current antidepressant. Close followup was arranged. There was no indication of self harm or suicidal intent. 07/02/2024 History of umbilical hernia (ICD-10 - Z87.19) He is free of any symptoms at this time. He feels occasional pressure with sustained abdominal contraction but is otherwise free of pain 02/07/2024 Right ear pain (ICD-10 - H92.01) He will have an ear nose and throat consultation the pain persists for 1 more week. 07/02/2024 Hiatal hernia (ICD-10 - K44.9) His symptoms have been mild and limited to the epigastric area. His nutritional status is good and his weight is stable. Plan Of Treatment Pending Test Test Name Order Date PROFILE, FASTING (COMPREHENSIVE METABOLI C) 05/01/2022 PROFILE, FASTING (COMPREHENSIVE METABOLI C) 10/25/2023 PROFILE, FASTING (COMPREHENSIVE METABOLI C) 10/02/2023 PROFILE, FASTING (COMPREHENSIVE METABOLI C) 12/29/2018 PROFILE, FASTING (COMPREHENSIVE METABOLI C) 12/13/2020 PROFILE, FASTING (COMPREHENSIVE METABOLI C) 07/20/2022 PROFILE, FASTING (COMPREHENSIVE METABOLI C) 06/25/2023 PROFILE, FASTING (COMPREHENSIVE METABOLI C) 07/02/2024 PROFILE, RANDOM (COMPREHENSIVE METABOLIC ) 04/22/2020 PROFILE, RANDOM (COMPREHENSIVE METABOLIC ) 02/05/2019 URIC ACID 05/01/2022 LIPID PANEL 05/01/2022 LIPID PANEL 12/29/2018 LIPID PANEL 12/13/2020 FREE T4 (FT4) 05/01/2022 FREE T4 (FT4) 04/22/2020 TSH (THYROID STIMULATING HORMONE) 2021 TSH (THYROID STIMULATING HORMONE) 2019 PSA, TOTAL 10/02/2023 PSA, TOTAL 07/20/2022 PSA, TOTAL 06/25/2023 PSA, TOTAL 07/02/2024 PSA, TOTAL 05/01/2022 CBC w DIFF 04/22/2020 CBC w DIFF 05/01/2022 CBC w DIFF 02/05/2019 CBC w DIFF 12/29/2018 CBC w DIFF 12/13/2020 CBC w DIFF 07/20/2022 SED RATE (ESR) 04/22/2020 SED RATE (ESR) 05/01/2022 LYME DISEASE IgG/IgM WB 02/05/2019 SCREENING COLONOSCOPY 12/29/2018 XR KNEE RT 2 VIEWS 12/25/2022 CBC WITH AUTO DIFF 06/25/2023 CBC WITH AUTO DIFF 07/02/2024 CBC WITH AUTO DIFF 10/25/2023 CBC WITH AUTO DIFF 10/02/2023 Complete Blood Count Auto Diff Lipid Panel 07/20/2022 Lipid Panel 06/25/2023 Lipid Panel 07/02/2024 Lipid Panel 10/25/2023 Lipid Panel 10/02/2023 Prostate Specific Antigen 10/26/2024 Vitamin D 25-OH Total 07/20/2022 Next Appt Details Provider Name:Soto France, 10/28/2024 03:00:00 PM, [address] [place] [address] [address], [place], [address], Insurance Providers Payer Name Payer Address Payer Phone Subscriber Number Group Number Insured Name Patient Relationship to Insured Coverage Start Date Coverage End Date [employer] [address] [address] [place] [address] [id number] SADI SANCHEZ Self - patient is the insured MEDICAID [address] [place], [place] [id number] SADI SANCHEZ Self - patient is the insured Medical (General) History Medical History History ICD Code umbilical hernia repaired December 2010 small hiatal hernia GERD hyperlipidemia multiple allergies, was once given and E piPen former smoker obesity left shoulder bursitis anxiety and depression 1.4 cm cystic lesion left upper pole of kidney 2014 The patient has a history of feeling lightheaded and right ear pain. He also reported occasional bloody noses and back pain. He does not take any blood thinners or aspirin. Surgical History Surgery Date(Month/Year) umbilical hernia repair 12/11 colonoscopy age 51 No history Hospitalization History Reason Date(Month/Year) allergic reaction 10/2018 [facility] few hours 04/2020 Memory loss [facility] 10/2020 No history
--- OUTSIDE RECORDS SUMMARY | 2024-10-26 12:51 | XMS_ITS ---
Author Organization Soto France III, MD Address [address] [place] [address] [place] [address] Care Team Providers Care Energy Trading Analyst Name Role Phone Soto France Primary Care Provider [phone] REASON FOR VISIT Rx Request Medications Medication SIG (Take, Route, Fr equency, Duration) Notes Start Date End Date Status Azithromycin 250 MG as directed Orally 2 Tablets on the first day, one tablet the rest of the days for 5 days 09/04/2024 09/09/2024 Active Social History Sex Assigned At : Social History Observation Description Sex Assigned At Male Encounters Encounter Location Date Provider Diagnosis Soto France III, MD [address] [place] [address] [place] [address] 09/04/2024 Soto France Plan Of Treatment Medication Medication Name Sig Start Date Stop Date Notes Azithromycin 250 MG as directed Orally 2 Tablets on the first day, one tablet the rest of the days for 5 days 09/04/2024 09/09/2024 Next Appt Details Provider Name:Soto France, 10/28/2024 03:00:00 PM, [address] [place] [address] [place], [address], Progress Notes * SADI SANCHEZDOB: [birth year] (59 yo M)Acc No.[id number]:09/04/2024 Patient:?SADI SANCHEZ :1965???Age:59 Y???Sex:Male Address:[address] [place] [address], [place], [address] * Refills? Start Azithromycin Tablet, 250 MG, Orally, 6, as directed, 2 Tablets on the first day, one tablet the rest of the days, 5 days, Refills=0 * true * Date:? Generated for Shaan allan/Andreas/eTransmitting on:?10/26/2024 12:50 PM EST
[2024-10-26 12:55] LABS: Alanine Aminotransferase 39 U/L (0-40); Albumin Level 4.1 g/dL (3.5-5.0); Alkaline Phosphatase 81 U/L (39-117); Anion Gap 13 (12-20); Aspartate Amino Transferase 39 U/L (5-37); Bilirubin Total 0.5 mg/dL (0.0-1.0); Blood Urea Nitrogen 28 mg/dL (9-16); Calcium 9.5 mg/dL (8.4-10.2); Carbon Dioxide 25 mmol/L (22-29); Chloride 107 mmol/L (96-108); Cholesterol 188 mg/dL (<200); Estimated Glomerular Filt Rate > 60; Glucose Fasting 97 mg/dL (60-99); HDL Cholesterol 44 mg/dL (>40); LDL Cholesterol Calculated 118 mg/dL (<100); Potassium 4.1 mmol/L (3.3-5.1); Sodium 141 mmol/L (135-145); Triglycerides 132 mg/dL (<150)
== END 2024-10-26 11:09 | disposition home or self-care (01) ==
LOC: HO.LAB 11:08
PROVIDERS: PCP Internal Medicine Medical Oncology; Visit Provider Internal Medicine Medical Oncology
DX: E78.2 Mixed hyperlipidemia (principal); N40.0 Benign prostatic hyperplasia without lower urinary tract symptoms; E66.3 Overweight; Z12.5 Encounter for screening for malignant neoplasm of prostate
CPT/HCPCS: 36415; 80053; 80061; 84153; 85025

== ENCOUNTER 2024-11-19 12:16 | Outpatient (REF) | payer MEDICARE, MEDICAID, SELFPAY ==
--- NOTE | 2024-11-19 13:25 | MHC.AU.HA1 ---
Hearing Aid Evaluation Date of Visit: 11/19/24 Historical Information: Description of Hearing: Within normal sloping to moderately-severe sensorineural hearing loss, bilaterally Summary: Provided hearing test and medical clearance from [facility]. Reported hx of hearing loss for many years related to occupational noise exposure, working in paper [employer]. Never previously interested in HAs. However, hearing loss now starting to affect daily life. Significant difficulty understanding speech, especially if speaker has an accent or softer voice; misses a lot of dialogue on television. Opted for rechargeable RITE compatible with iPhone. Hearing Aid Prescription: Based on the individual?s shared listening needs, communication environments, dexterity, desire for connectivity, and personal preferences, the following prescription for amplification has been made: Right ear: Ottoniel Model, Color: Oticon Intent 2 miniRITE-R Color: Silver Bennett Battery Size: Rechargeable Research Engineer/Slim Tube: 3/85 Type of Earmold/Dome/CShell/SlimTip: 8mm double lebron dome Left ear: Left ear prescription to be same as Right Hearing Aid above: Model Ottoniel, Color: Oticon Intent 2 miniRITE-R Color: Silver Bennett Battery Size: Rechargeable Research Engineer/Slim Tube: 3/85 Type of Earmold/Dome/CShell/SlimTip: 8mm double lebron dome Accessories/Assistive Technology: Toe Puller Plan of Care: Patient wishes to purchase hearing aids as prescribed Action Taken/Action Needed: Hearing Instrument Fitting to be scheduled when materials arrive Primary Diagnosis: H90.3 Bilateral Sensorineural Hearing Loss Signature: Provider: Ru Avendaño, [facility]
--- OUTSIDE RECORDS SUMMARY | 2024-11-19 14:39 | XMS_ITS ---
Author Organization Soto France III, MD Address [address] [place] [address] [place] [address] Care Team Providers Care Scrub Woman Name Role Phone Soto France Primary Care Provider [phone] REASON FOR VISIT FYI only Social History Sex Assigned At : Social History Observation Description Sex Assigned At Male Encounters Encounter Location Date Provider Diagnosis Soto France III, MD [address] [place] [address] [place] [address] 11/03/2024 Soto France Plan Of Treatment Next Appt Details Provider Name:Soto France, 01/27/2025 02:45:00 PM, [address] [place] [address] [place], [address], Provider Name:Soto France, 11/01/2025 03:00:00 PM, [address] [place] [address] [place], [address], Progress Notes * SADI SANCHEZDOB: [birth year] (59 yo M)Acc No.[id number]:11/03/2024 Patient:?SADI SANCHEZ :1965???Age:59 Y???Sex:Male Address:[address] [place] [address], [place], [address] * true * Date:? Generated for Shaan allan/Andreas/Stephon on:?11/19/2024 02:39 PM EDT
--- OUTSIDE RECORDS SUMMARY | 2024-11-19 14:39 | XMS_ITS | Patient Health Record ---
Author Organization Soto France III, MD Address [address] [place] [address] [place] [address] Care Team Providers Care Security System Engineer Name Role Phone Soto France Primary Care Provider [phone] Allergies Allergen (clinical drug ingredient) Drug/Non Drug Allergy documented on EMR Reaction Allergy Type Onset Date Status ibuprofen Ibuprofen Unknown Drug Allergy Active Yellow Jacket Venom Unknown Drug Allergy Active naproxen Naprosyn Unknown Drug Allergy Active Results Component Value Reference Range Notes Complete Blood Count Auto Di ff Reviewed date:10/28/2024 03:12:14 PM Interpretation: Performing Lab:[facility], [address] [place] [phone] Notes/Report: White Blood Count 6.7 4.8-10.8 X10*3/uL [...] X10*3/uL NRBC Abs Auto 0.000 0.0-0.012 X10*3/uL Comprehensive [place]. Panel Fa st Reviewed date:10/28/2024 03:12:14 PM Interpretation: Performing Lab:[facility], [address] [place] [phone] Notes/Report: Sodium 141 135-145 mmol/L Potassium 4.1 3.3-5.1 mmol/L Chloride 107 96-108 mmol/L Carbon Dioxide 25 22-29 mmol/L Anion Gap 13 12-20 Blood Urea Nitrogen 28 9-16 mg/dL Creatinine 1.15 0.5-1.4 mg/dL Estimated Glomerular Filt Rate > 60 Chronic Kidney Disease: Estimated GFR < 60 mL/min/1.73m2 Severe Kidney Disease: Estimated GFR < 15 mL/min/1.73m2 Glucose Fasting 97 60-99 mg/dL Calcium 9.5 8.4-10.2 mg/dL Bilirubin Total 0.5 0.0-1.0 mg/dL Aspartate Amino Transferase 39 5-37 U/L Alanine Aminotransferase 39 0-40 U/L Total Protein 7.0 6.5-8.0 g/dL Albumin Level 4.1 3.5-5.0 g/dL Alkaline Phosphatase 81 39-117 U/L Lipid Panel Reviewed date:10/28/2024 03:12:14 PM Interpretation: Performing Lab:[facility], [address] [place] [phone] Notes/Report: Triglycerides 132 <150 mg/dL Desirable Triglyceride: less than 150 mg/dL Borderline High Triglyceride 150-199 mg/dL High Triglyceride: 200-499 mg/dL Very High Triglyceride: greater than or equal to 5OO mg/dL Cholesterol 188 <200 mg/dL Desirable Cholesterol: less than 200 mg/dL Borderline High Cholesterol: 200-239 mg/dL High Cholesterol: greater than 239 mg/dL LDL Cholesterol Calculated 118 <100 mg/dL Desirable LDL: less than 100 mg/dL Near Optimal/Above Optimal LDL: 110-129 mg/dL Borderline High LDL: 130-159 mg/dL High LDL: 160-189 mg/dL Very High LDL: greater than or equal to 190 mg/dL HDL Cholesterol 44 >40 mg/dL Desirable HDL: greater than 40 mg/dL Note: This HDL assay may give artificially low results in patients with liver disease. Prostate Specific Antigen Reviewed date:10/28/2024 03:12:14 PM Interpretation: Performing Lab:[facility], [address] [place] [phone] Notes/Report: Prostate Specific Antigen 1.95 <0.05-4.0 ng/mL [...] M edicine Referred Provider [facility], [facility] Referred Provider Specialty Otolaryngolo gy General Notes Ting Ponce ASMA 01/28/2024 02:55:01 PM >Notes faxed Referral Priority Routine Referral Appointment Date 11/13/2024 Reason assistance with obta ining new therapist [...] Provider Speciality Internal M edicine Referred Organization [facility] Referred Provider Damaris Mo Referred Address [address] [place] [address],[place], [place],[id number] Referred Provider Specialty Nurse Jones patricia General Notes Arleen Roe [facility] 11/02 10:59:28 AM > REFERRAL/ DEMO/PROGRESS NOTE FAXED TO Bhupinder LAWSON Suzanne [facility] 11/10/2024 03:22:20 PM >Regino Mo RN spoke with patient over the phone and there is a note in the record Referral Priority Routine Medications Medication SIG (Take, Route, Fr equency, Duration) Notes Start Date End Date Status clomiPRAMINE HCl 75 MG 1 capsule at bedt amanda Orally Once a day Active Omeprazole 20 MG 1 capsule1 hour befo re morning meal Orally Once a day for 90 days Active Simvastatin 20 MG 1 tablet Orally in t he evening for 90 days Active Lisinopril 5 MG 1 tablet Orally Once a day for 90 days Active Centrum Silver - Orally Act marco a Immunizations Vaccine Route Administration Date Status Comme nts Influenza, quad IM Intramuscular 06/07/2020 Administered Influenza, quad IM Intramuscular 06/15/2022 Administered Influenza, quad IM Intramuscular 06/25/2023 Administered Flu-IIv4pf Unknown 06/03/2017 Administered Flu-IIv4pf Unknown 06/27/2018 Administered Flu-ccIIv3, p-free Unknown 06/18/2024 Administered COVID PFIZER Unknown 02/23/2021 Administered Flu-IIv4pf Unknown 07/31/2019 Administered COVID PFIZER Unknown 02/02/2021 Administered Influenza no Preserv 3 and > Unknown 06/19/2016 Administered Social History Tobacco Use: Social History Observation [...] Problem Status W/U Status Risk Notes Problem 3801156 Former smoker (Z87.891) Active confirmed He is highly motivated not to smoke. We discussed a plan to prevent relapse in times of stress and illness. Problem 742227386 Overweight (E66.3) Active confirmed He has lost 2 pounds his body mass index is 28. We discussed diet and nutrition and a weight loss strategy. He will try to lose weight at a rate of one half of a pound per week. Problem 145432177827708 Obesity (BMI 30.0-34.9) (E66.9) Active confirmed We have discussed his diet and his nutrition. He is trying to lose weight. We have reviewed his weight loss strategy. We made a plan to lose weight at a rate of one half of a pound per week. Problem 12928905 Anxiety (F41.9) Active confirmed He has been taking his medication. He is beginning to feel better. His issues at work or less pressing now. Problem 214298565 Mixed hyperlipidemia (E78.2) Active confirmed The current fasting lipid profile shows his cholesterol to be in the target range. I recommended weight loss and consumption of a healthy diet. We discussed nutrition today. Problem 781890773 GERD without esophagitis (K21.9) Active confirmed His reflux symptoms have been well-controlled with vvyr-fpl-vccryx r medication. These were continued. Problem Benign prostatic hyperplasia (450986779) BPH (benign prostatic hyperplasia) (N40.0) Active confirmed He rises from sleep on the average of once a night. We have discussed several lifestyle modifications he could make to avoid nocturia. Problem 16275143 Memory loss (R41.3) Active confirmed He is no longer complaining about his memory. He seemed intact today. Problem 91452653 Hiatal hernia (K44.9) Active confirmed His symptoms have been mild and limited to the epigastric area. His nutritional status is good and his weight is stable. Problem Basal cell carcinoma (9292715) Basal cell carcinoma (C44.91) Active confirmed The lesion was excised from the right side of his head this morning. We will await the pathology and the margins report. Problem 046908096 History of umbilical hernia (Z87.19) Active confirmed He is free o f any symptoms at this time. He feels occasional pressure with sustained abdominal contraction but is otherwise free of pain Problem 348874696 History of depression (Z86.59) Active confirmed He was instructed to continue to see his therapist weekly and to take his antidepressant medication. He will be seen here frequently and his medications adjusted. It is felt that the therapist can get him to see a prescriber. Problem 858035013 Renal cyst, left (N28.1) Active confirmed A repeat image of the kidney is due. Problem 2015820304 Persistent depressive disorder (F34.1) Active confirmed He was continued on his current antidepressant. Close followup was arranged. There was no indication of self harm or suicidal intent. Vital Signs Heart Rate 80 /min 10/28/2024 Temperature 97.9 degrees Fahrenheit 10/28/2024 Blood pressure diastolic 80 mm Hg 10/28/2024 Height 69 in 10/28/2024 Blood pressure systolic 112 mm Hg 10/28/2024 Weight 194 lbs 10/28/2024 BMI 28.65 kg/m2 10/28/2024 Encounters Encounter Location Date Provider Diagnosis Soto France III, MD [address] [place] [address] [place] [address] 01/24/2024 Soto France History of umbilical hernia Z87.19 ; Ear pain, right H92.01 ; Former smoker Z87.891 ; GERD without esophagitis K21.9 ; Mixed hyperlipidemia E78.2 ; Persistent depressive disorder F34.1 and Overweight E66.3 Soto France III, MD [address] [place] [address] [place] [address] 02/07/2024 Soto France History of umbilical hernia Z87.19 ; Mixed hyperlipidemia E78.2 ; GERD without esophagitis K21.9 ; Former smoker Z87.891 ; Persistent depressive disorder F34.1 ; BPH (benign prostatic hyperplasia) N40.0 ; Overweight E66.3 and Right ear pain H92.01 Soto France III, MD [address] [place] [address] [place] [address] 04/09/2024 Soto France GERD without esophag itis K21.9 ; Mixed hyperlipidemia E78.2 ; Former smoker Z87.891 ; Anxiety F41.9 ; Overweight E66.3 ; Basal cell carcinoma C44.91 and Persistent depressive disorder F34.1 Soto France III, MD [address] [place] [address] [place] [address] 07/02/2024 Soto France Mixed hyperlipidemia E78.2 ; History of depression Z86.59 ; BPH (benign prostatic hyperplasia) N40.0 ; Overweight E66.3 ; Former smoker Z87.891 ; GERD without esophagitis K21.9 ; History of umbilical hernia Z87.19 and Hiatal hernia K44.9 Soto France III, MD [address] [place] [address] [place] [address] 10/28/2024 Soto France History of umbilical hernia Z87.19 ; Persistent depressive disorder F34.1 ; Hiatal hernia K44.9 ; GERD without esophagitis K21.9 ; Mixed hyperlipidemia E78.2 ; Former smoker Z87.891 ; BPH (benign prostatic hyperplasia) N40.0 and Overweight E66.3 Soto France III, MD [address] [place] [address] [place] [address] 09/04/2024 Soto France III, MD [address] [place] [address] [place] [address] 10/21/2024 Soto France III, MD [address] [place] [address] [place] [address] 11/03/2024 Soto France Assessments Encounter Date Diagnosis (ICD [...] His reflux symptoms have been well-controlled with srxs-qag-qrkvfrv medication. These were continued. 07/02/2024 Mixed hyperlipidemia [...] can get him to see a prescriber. 10/28/2024 History of umbilical hernia (ICD-10 - Z87.19) He is free of any symptoms at this time. He feels occasional pressure with sustained abdominal contraction but is otherwise free of pain 10/28/2024 Persistent depressive disorder (ICD-10 - F34.1) He was continued on his current antidepressant. Close followup was arranged. There was no indication of self harm or suicidal intent. 01/24/2024 Former smoker (ICD-10 - Z87.891) He is highly motivated not to smoke. We discussed a plan to prevent relapse in times of stress and illness. 02/07/2024 GERD without esophagitis (ICD-10 - K21.9) His reflux symptoms have been well-controlled with cpzm-vcs-ehgufbt medication. These were continued. 04/09/2024 Former smoker (ICD-10 - Z87.891) He is highly motivated not to smoke. We discussed a plan to prevent relapse in times of stress and illness. 07/02/2024 BPH (benign prostatic hyperplasia) (ICD-10 - N40.0) He rises from sleep on the average of once a night. We have discussed several lifestyle modifications he could make to avoid nocturia. 10/28/2024 Hiatal hernia (ICD-10 - K44.9) His symptoms have been mild and limited to the epigastric area. His nutritional status is good and his weight is stable. 01/24/2024 GERD without esophagitis (ICD-10 - K21.9) His reflux symptoms have been well-controlled with wloq-upd-pitizxv medication. These were continued. 02/07/2024 Former smoker [...] one half of a pound per week. 10/28/2024 GERD without esophagitis (ICD-10 - K21.9) His reflux symptoms have been well-controlled with hooq-agw-skghhpz medication. These were continued. 01/24/2024 Mixed hyperlipidemia (ICD-10 - E78.2) His [...] in times of stress and illness. 10/28/2024 Mixed hyperlipidemia (ICD-10 - E78.2) The current fasting lipid profile shows his cholesterol to be in the target range. I recommended weight loss and consumption of a healthy diet. We discussed nutrition today. 01/24/2024 Persistent depressive disorder (ICD-10 - F34.1) [...] His reflux symptoms have been well-controlled with mjwd-xys-cntrihf medication. These were continued. 10/28/2024 Former smoker (ICD-10 - Z87.891) He is highly motivated not to smoke. We discussed a plan to prevent relapse in times of stress and illness. 01/24/2024 Overweight (ICD-10 - E66.3) He has [...] but is otherwise free of pain 10/28/2024 BPH (benign prostatic hyperplasia) (ICD-10 - N40.0) He rises from sleep on the average of once a night. We have discussed several lifestyle modifications he could make to avoid nocturia. 02/07/2024 Right ear pain (ICD-10 - H92.01) He will have an ear nose and throat consultation the pain persists for 1 more week. 07/02/2024 Hiatal hernia (ICD-10 - K44.9) His symptoms have been mild and limited to the epigastric area. His nutritional status is good and his weight is stable. 10/28/2024 Overweight (ICD-10 - E66.3) He has lost 2 pounds his body mass index is 28. We discussed diet and nutrition and a weight loss strategy. He will try to lose weight at a rate of one half of a pound per week. Plan Of Treatment Pending Test Test Name Order Date PROFILE, FASTING (COMPREHENSIVE METABOLI C) 12/29/2018 PROFILE, FASTING (COMPREHENSIVE METABOLI C) 10/02/2023 PROFILE, FASTING (COMPREHENSIVE METABOLI C) 12/13/2020 PROFILE, FASTING (COMPREHENSIVE METABOLI C) 07/20/2022 PROFILE, FASTING (COMPREHENSIVE METABOLI C) 06/25/2023 PROFILE, FASTING (COMPREHENSIVE METABOLI C) 07/02/2024 PROFILE, FASTING (COMPREHENSIVE METABOLI C) 05/01/2022 PROFILE, FASTING (COMPREHENSIVE METABOLI C) 10/25/2023 PROFILE, RANDOM (COMPREHENSIVE METABOLIC ) 04/22/2020 PROFILE, RANDOM (COMPREHENSIVE METABOLIC ) 02/05/2019 URIC ACID 05/01/2022 LIPID PANEL 05/01/2022 LIPID PANEL 12/29/2018 LIPID PANEL 12/13/2020 FREE T4 (FT4) 05/01/2022 FREE T4 (FT4) 04/22/2020 TSH (THYROID STIMULATING HORMONE) 2021 TSH (THYROID STIMULATING HORMONE) 2019 PSA, TOTAL 10/02/2023 PSA, TOTAL 07/20/2022 PSA, TOTAL 06/25/2023 PSA, TOTAL 07/02/2024 PSA, TOTAL 05/01/2022 CBC w DIFF 12/29/2018 CBC w DIFF 12/13/2020 CBC w DIFF 07/20/2022 CBC w DIFF 04/22/2020 CBC w DIFF 02/05/2019 CBC w DIFF 05/01/2022 SED RATE (ESR) 04/22/2020 SED RATE (ESR) 05/01/2022 LYME DISEASE IgG/IgM WB 02/05/2019 SCREENING COLONOSCOPY 12/29/2018 XR KNEE RT 2 VIEWS 12/25/2022 CBC WITH AUTO DIFF 10/25/2023 CBC WITH AUTO DIFF 10/02/2023 CBC WITH AUTO DIFF 06/25/2023 CBC WITH AUTO DIFF 07/02/2024 Lipid Panel 06/25/2023 Lipid Panel 07/02/2024 Lipid Panel 10/25/2023 Lipid Panel 10/02/2023 Lipid Panel 07/20/2022 Vitamin D 25-OH Total 07/20/2022 Next Appt Details Provider Name:Soto France, 01/27/2025 02:45:00 PM, [address] [place] [address] , [facility] [place], [place], [address], Provider Name:Soto France, 11/01/2025 03:00:00 PM, [address] [facility] [address], [place], [address], Insurance Providers Payer Name Payer Address Payer Phone Subscriber Number Group Number Insured Name Patient Relationship to Insured Coverage Start Date Coverage End Date MEDICARE NGS [address] [place] [address] [id number] SADI SANCHEZ Self - patient is the insured [place] [address] [place] [id number] SADI SANCHEZ Self - patient is the [...] Hospitalization History Reason Date(Month/Year) allergic reaction 10/2018 [facility] few hours 04/2020 Memory loss [facility] 10/2020 No history
--- OUTSIDE RECORDS SUMMARY | 2024-11-19 14:39 | XMS_ITS | Continuity of Care Document ---
Author Organization [place] - [facility], [facility] Address [address] [place] [address] Care Team Providers Care Banker Mason Name Role Phone KEELEY SKAGGS Primary Care Provider [phone] Assessment Encounter Date Assessment Date Assessment LastModified by Organization Details LastModified Time 11/13/2024 11/13/2024 Recommendatio ns: Follow up with referring provider. [email or web address] Not available 11/13/2024 14:25:26 Plan of Treatment Reminders Order Date Submit Date Provider Last Modified By Organization Details Last Modified Time Details Appointments None record ed. Lab None record ed. Referral None record ed. Procedures None record ed. Surgeries None record ed. Imaging None record ed. Medication Orders None record ed. Patient TargetsNo targets recorded. Patient InstructionsNo instructions recorded. Reason for Referral None Reported. Results Created Date Observation Date Name Description Value Unit Range Abnormal Flag Note LastModifiedBy Organization Detail LastModifiedTime 11/14/19 25 audio gram No observ ation record ed. BARCODE Not Available 2024 15:46:32 Result Notes None recorded. Problems Name Problem SNOMED Code Status Onset Date Resolution Date Notes Provider Name and Address Organization Details Recorded Time Sensorineur al hearing loss of bilateral ears 309163717 Active 2024 KEELEY Davis MD [address] [address], [place], [address], [facility] - [facility] 5 13:50:35 Bilateral earache 294736483 Active 2024 KEELEY Davis MD [address] [address], [place], [address], [facility] 13:50:43 Tinnitus of left ear 4279085768936 Active 2024 MATILDE BROOKS MA, CCC-A [address] [facility] [address], [place], [address], [facility] - [facility] 14:25:27 Bilateral tinnitus 9998056405490 Active 2024 MATILDE BROOKS [place], [facility] [address] [facility] [address], [place], [address], [facility] - [facility] [place] 14:25:27 Tinnitus of right ear 8685077359390 Active 2024 MATILDE BROOKS [place], [facility] [address] [facility], [place], [address], [facility] - [facility] [place] 14:25:27 Problem Notes None recorded. Procedures Surgical History Date Name Laterality Status Provider Name and Address Organization Details Recorded Time 11/13/2024 Comp Audio with Tymps (46394 & 42503) completed MATILDE BROOKS MA, [facility] [address] [facility],[address] [address], [place], [address], [facility] 11/13/2024 14:25:26 11/13/2024 FFL_RE completed KEELEY GRAF MD [address] [place] [address],[address], [address], [facility] 11/13/2024 13:53:48 Imaging Results None recorded. Procedure Notes None recorded. Medical Equipment None Reported. Medications Name Sig Start Date Stop Date Status Note LastModified by Organization Details LastModified Time azithromycin 250 mg tablet TAKE 2 TABLETS BY MOUTH TODAY, THEN TAKE 1 TABLET DAILY FOR 4 DAYS DIRECTED active Not Available Not Available No t Available simvastatin 20 mg tablet TAKE 1 TABLET BY MOUTH IN THE EVENING active Not Available Not Available No t Available omeprazole 20 mg capsule,delaye d release TAKE 1 CAPSULE BY MOUTH EVERY DAY active Not Available Not Available No t Available lisinopril 5 mg tablet TAKE 1 TABLET BY MOUTH EVERY DAY active Not Available Not Available No t Available clomipramine 50 mg capsule TAKE 3 CAPSULES BY MOUTH AT BEDTIME active Not Available Not Available No t Available Vitals Date Recorded Body height Body mass index (BMI) Body weight Provider Name and Address Organization Details Last Updated DateTime 11/13/2024 177.8 cm 28 kg/m2 97838.51 g Argentina Barajas [place] - [facility] 11/13/2024 13:18:11 Social History None recorded. Functional Status None recorded. Mental Status None recorded. Family History Nothing Reported. Medical History No medical history recorded. Past Encounters Encounter ID Performer Location Encounter Start Date Encounter Closed Date Diagnosis/Indication Diagnosis SNOMED-CT Code Diagnosis ICD10 Code Diagnosis Note [id number] KEELEY GRAF MD [facility] [address] [address] 11/13/2024 12:48:09 11/13/2024 14:43:59 Sensorineural hearing loss of bilateral ears 046081132 H90.3 Audio showed SNHL AU. I gave clearance for hearing aids. Bilateral earache 894930 003 H92.03 No obvious source. Ear exam normal. TMJ exam normal. FFL performed to exclude referred pain which was negative. I offered a CT neck with contrast to exclude an underlying neoplastic process but he deferred as he has no current pain. He will call if it worsens. [id number] MATILDE BROOKS MA, CCC-A [facility] [address] [address] 11/13/2024 14:24:40 11/13/2024 15:49:35 Bilateral tinnitus 1319423496 102 H93.13 Tinnitus of right ear 48 23690295 108 H93.11 Tinnitus of left ear 691 4667447 106 H93.12 Sensorineu ral hearing loss of bilateral ears 156109997 H90.3 Audiologic al evaluation results: Right ear: {{Normal N ormal through 2 kHz Mild M oderate Mo derately-s evere Erendira re Profoun d Normal hearing thru 1000Hz sloping to#}} {{hearing hearing. s loping to a mild slopi ng to a moderate s loping to moderately severe slo ping to severe slo ping to profound f lat high frequency low frequency mid frequency cookie bite valladares curve a mild to moderate SNHL#}} {{with* se nsorineura l hearing loss with condu ctive hearing loss with mixed hearing loss with}} {{excellen t* good fa ir poor no measurable }} word recognitio n. Left ear: {{Normal N ormal through 2 kHz Mild M oderate Mo derately-s evere Erendira re Profoun d Normal hearing thru 1000Hz sloping to#}} {{hearing hearing. s loping to a mild slopi ng to a moderate s loping to moderately severe slo ping to severe slo ping to profound f lat high frequency low frequency mid frequency cookie bite valladares curve a mild-moder ate SNHL#}} {{with* se nsorineura l hearing loss with condu ctive hearing loss with mixed hearing loss with}} {{excellen t* good fa ir poor no measurable }} word recognitio n. Tympanomet ry: Right Ear:{{Type A* Type As Type Ad Type C Type C, shallow & rounded Ty pe B Type B with large volume Cou ld not maintain a hermetic seal}} Left Ear: Type A Rec: Trial amplificat ion Health Concerns Section Related Observation LastModified by Organization Detai ls LastModified Time None Recorded Concern Status LastModified by Organization Details LastModified Time None Recorded Payers Encounter Date Sequence Insurance Name Policy Number Policy Briceno Covered Member ID Briceno Member ID Guarantor Name 11/13/2024 2 [place] [facility] Louis Duong Daniel [id number] Louis Sanchez 11/13/2024 1 MEDICARE B-[place]: [employer] Louis Sanchez [id number] Louis Sanchez Notes Date Note Type Note Provider Name and Address Organization Details Recorded Time 11/13/2024 text/html He presents with intermittent ear pain on the right. He has not been treated for OM. Currently he does not have the ear pain. Last time it bothered him was a few weeks ago. Denies otorrhea and tinnitus. He has noticed gradual hearing loss over time. He has dentures and denies bruxism. KEELEY GRAF MD [address] [place] [address], [address], [facility] - [facility] 11/13/2024 14:43:55 11/13/2024 text/html Londstanding history of noise exposure MATILDE BROOKS MA, [facility] [address] [address], [place], [address], [place] - [facility] 11/13/2024 14:30:16
--- OUTSIDE RECORDS SUMMARY | 2024-11-19 14:39 | XMS_ITS ---
Author Organization Soto France III, MD Address [address] [place] [address] [place] [address] Care Team Providers Care Mortar Mixer Operator Name Role Phone Soto France Primary [...] Provider Speciality Internal M edicine Referred Organization [facility] nter Referred Provider Damaris Mo Referred Address [address] [place] [address],[facility] [place],[id number], Referred Provider Specialty Nurse Jones patricia General [...] Lisinopril 5 MG TAKE 1 TABLET BY KIRARA TH EVERY DAY Active Omeprazole 20 MG [...] Date Provider Diagnosis Soto France III, MD [address] [place] [address] [place] [address] 10/28/2024 Soto France History of umbilical hernia [...] His reflux symptoms have been well-controlled with wghm-jzs-dlemloa medication. These were continued. 10/28/2024 Mixed hyperlipidemia [...] his severe depression and anxiety, Damaris Mo, [address] [place] [address], [place], [phone], Next Appt Details Follow Up: 3 Months, In thre e months, Reason: ov no tests, Regular check-up Provider Name:Soto Montesinosrne, 01/27/2025 02:45:00 PM, [address] [facility] [address], [place], [phone], Provider Name:Soto Montesinosrne, 11/01/2025 03:00:00 PM, [address] [facility] [place], [address], Progress Notes * SADI SANCHEZDOB: [birth year] (59 yo M)Acc No.[id number]:10/28/2024 Progress Notes Patient:?AMOL SADI Duong Provider:?Soto France MD :1965???Age:59 Y???Sex:Male Tony e:10/28/2024 Address:[address] [place] [address] [place], [phone] Subjective: * Chief Complaints: * ???Annual Exam * HPI: ???Depression Screening:?PHQ-9?Little interest or pleasure in doing things?Not at all ?Feeling down, depressed, or hopeless?Several days ?Trouble falling or staying asleep, or sleeping too much?Not at all ?Feeling tired or having little energy?More than half the days ?Poor appetite or overeating?Not at all ?Feeling bad about yourself or that you are a failure, or have let yourself or your family down?Not at all ?Trouble concentrating on things, such as reading the newspaper or watching television?More than half the days ?Moving or speaking so slowly that other people could have noticed; or the opposite, being so fidgety or restless that you have been moving around a lot more than usual?Not at all ?Thoughts that you would be better off or of hurting yourself in some way?Not at all ?Total Score?5 ?Interpretation?Mild Depression ???COVID-19 Screening:?Questions?Have you had any new onset fever, chills, cough, congestion, sore throat, shortness of breath, muscle aches??No ???SDOH Questions:?SDOH Questions?In the past year have you been worried about losing your housing??No ?In the past year have you or any family members you live with been unable to get any of the following when it was really needed? Check all that apply:?None ???Fall Risk Screening:?Fall History?Have you had any falls with injury in the past year??Yes ?Have you had two or more falls in the past year??No ?Fall Risk Assessment:?One fall with injury in the past year ???:?The patient, a 59-year-old male, presented with a [...] Level is 97.We discussed his psychotherapy at length.? He has a psychiatrist who gives him his psychiatric medication.? The psychiatrist requires that he see the psychotherapist regularly.? The patient wants to stop psychotherapy and have me prescribe his psychiatric medications.? I declined to do so today stating that I have penology professor using the drug clomiphene for any medical illness and that I am not trained in treating psychiatric illness.? I strongly urged him to stay with his current mental health providers and to switch psychotherapist within that system if he wished to do so without a lapse in treatment.He is due for a colonoscopy and we discussed this.? He agreed to a referral to his air valve repairer for the procedure.? This will be done in the near future. * ROS:?General/Constitutional:?pain?only normal aches and pains.?Chills?denies.?Fatigue?admits.?Fever?denies.?ENT:?Decreased hearing?denies.?Respiratory:?Cough?denies.?Cardiovascular:?Chest pain with exertion?denies.?Dyspnea on exertion?denies.?Shortness of breath?denies.?Gastrointestinal:?Constipation?occasional.?Decreased appetite?denies.?Diarrhea?denies.?Heartburn?denies.?Nausea?denies.?Rectal bleeding?denies.?Vomiting?denies.?Hematology:?bruising?denies.?petechiae?denies.?Swollen glands?none have been noted.?Genitourinary:?Frequent urination?once a night.?Musculoskeletal:?Muscle aches?denies.?Painful joints?denies.?Sciatica?denies.?Weakness?denies.?Skin:?Itching?denies.?Rash?denies.?Skin lesion(s)?denies.?Neurologic:?Difficulty speaking?denies.?Dizziness?denies.?Headache?denies.?Low back pain?denies.?Psychiatric:?Depressed mood?which is moderate.? * Medical History:? * Surgical History:?umbilical hernia repair 04/11colonoscopy age 51No history * Hospitalization/Major Diagno stic Procedure:?allergic reaction 10/2018[facility] few hours 04/2020Memory loss [facility] 10/2020No history * Family History:?Father: dece ased [...] or mental illness. * Social History:?Tobacco Use:?Tobacco Control (Standard)?Tobacco use:?Former smoker ?How long has it been since you last smoked??Greater than 10 years ?Additional Findings: Tobacco non-user?Ex-cigarette smoker ???Drugs/Alcohol:?Drugs?Have you used drugs other than those for medical reasons in the past 12 months??No ???Drug/Alcohol:?AUDIT-C (Standard)?Did you have a drink containing alcohol in the past year??No ?Points?0 ?Interpretation?Negative ???He has been to Josette for 7 years. She has 4 children. They have been together for 21 years. He is working for [employer] and has no toxic exposures. The patient [...] Venomno[Allergies Verified] Objective: * Vitals:?Ht: 69, Wt: 194, BMI :28.65, BP: 112/80, HR: 80, Temp: 97.9, Wt-k. * ???Past Orders: Lab:Complete Blood Count Aut o Diff [...] 0.000 (Ref Range: 0.0-0.012 X10*3/uL) * Lab:[facility] * Collection Date 10/26/2024 10/17/2023 10/16/2022 Collection Time 11:22 AM 11:18 AM 11:30 AM Order Date 10/26/2024 10/17/2023 10/16/2022 Sodium 141 (Ref Range: 135-145 mmol/L) 141 (Ref Range: 135-145 mmol/L) 142 (Ref Range: 135-145 mmol/L) Bilirubin Total 0.5 (Ref Range: 0.0-1.0 mg/dL) 0.7 (Ref Range: 0.0-1.0 mg/dL) 0.8 (Ref Range: 0.0-1.0 mg/dL) Aspartate Amino Transferase 39?H (Ref Range: 5-37 U/L) 38?H (Ref Range: 5-37 U/L) 48?H (Ref Range: 5-37 U/L) Alanine Aminotransferase 39 (Ref Range: 0-40 U/L) 42?H (Ref Range: 0-40 U/L) 69?H (Ref Range: 0-40 U/L) Total Protein 7.0 [...] 96-108 mmol/L) 104 (Ref Range: 96-108 mmol/L) 109?H (Ref Range: 96-108 mmol/L) Carbon Dioxide 25 (Ref Range: 22-29 mmol/L) 31?H (Ref Range: 22-29 mmol/L) 21?L (Ref Range: 22-29 mmol/L) Anion Gap 13 (Ref Range: 12-20) 11?L (Ref Range: 12-20) 16 (Ref Range: 12-20) Blood Urea Nitrogen 28?H (Ref Range: 9-16 mg/dL) 21?H (Ref Range: 9-16 mg/dL) 18?H (Ref Range: 9-16 mg/dL) Creatinine 1.15 (Ref Range: 0.5-1.4 mg/dL) 1.23 (Ref Range: 0.5-1.4 mg/dL) 1.12 (Ref Range: 0.5-1.4 mg/dL) Estimated Glomerular Filt Rate > 60 > 60 > 60 Glucose Fasting 97 (Ref Range: 60-99 mg/dL) 105?H (Ref Range: 60-99 mg/dL) 110?H (Ref Range: 60-99 mg/dL) Calcium 9.5 (Ref [...] 221 (Ref Range: mg/dL) LDL Cholesterol Calculated 118?H (Ref Range: <100 mg/dL) 122?H (Ref Range: <100 mg/dL) 132 (Ref Range: [...] 1.79 (Ref Range: <0.05-4.0 ng/mL) * Examination: ???General Examination: ?GENERAL APPEARANCE:?pleasant, well nourished, well developed, in no acute distress, calm and relaxed, overweight, man.?HEAD:?atraumatic, normocephalic.?EYES:?eomi, perrla, anicteric, conjugate.?EARS:?normal.?NOSE:?septum intact.?ORAL CAVITY:?normal, unremarkable.?NECK/THYROID:?no jugular venous distention, no carotid bruit, thyroid normal.?LYMPH NODES:?no enlarged lymph nodes,spleen normal.?SKIN:?no suspicious lesions, anicteric.?HEART:?no clicks, gallops, murmurs, or rubs, regular rhythm, S1, S2 normal, no s3, or vascular bruits.?LUNGS:?clear to auscultation .?BREASTS:??no masses palpable bilaterally.?ABDOMEN:?bowel sounds normal, no ascites, no organomegaly, no mass, overweight.?RECTAL EXAM:?Deferred to his upcoming colonoscopy.?MUSCULOSKELETAL:?extremities unremarkable, no clubbing, cyanosis or edema.?PERIPHERAL PULSES:?normal.?NEUROLOGIC:?alert and oriented, cranial nerves 2-12 grossly intact, deep tendon reflexes 2+ symmetrical, motor strength normal upper and lower extremities, sensory exam intact.?PSYCH:?alert, oriented.? Assessment: * Assessment: 1.?Persistent depressive dis order - F34.1 (Primary)???Notes :He was continued on his current antidepressant. Close followup was arranged. There was no indication of self harm or suicidal intent.???2.?History of umbilical hernia - Z87.19???Notes :He is free of any symptoms at this time. He feels occasional pressure with sustained abdominal contraction but is otherwise free of pain???3.?Hiatal hernia - K44.9???Notes :His symptoms have been mild and limited to the epigastric area. His nutritional status is good and his weight is stable.???4.?GERD without esophagitis - K21.9???Notes :His reflux symptoms have been well-controlled with eexh-lyg-mnxrkjm medication. These were continued.???5.?Mixed hyperlipidemia - E78.2???Notes :The current fasting lipid profile shows his cholesterol to be in the target range.? I recommended weight loss and consumption of a healthy diet.? We discussed nutrition today.???6.?Former smoker - Z87.891???Notes :He is highly motivated not to smoke. We discussed a plan to prevent relapse in times of stress and illness.???7.?BPH (benign prostatic hyperplasia) - N40.0???Notes :He rises from sleep on the average of once a night. We have discussed several lifestyle modifications he could make to avoid nocturia.???8.?Overweight - E66.3???Notes :He has lost 2 pounds his body mass index is 28. We discussed diet and nutrition and a weight loss strategy. He will try to lose weight at a rate of one half of a pound per week.??? Plan: * Treatment: 2.?Others? Continue Lisinopril Tablet, 5 MG, TAKE 1 TABLET BY MOUTH EVERY DAY;?Continue Omeprazole Capsule Delayed Release, 20 MG, TAKE 1 CAPSULE BY MOUTH EVERY DAY;?Continue Simvastatin Tablet, 20 MG, TAKE 1 TABLET BY MOUTH EVERY DAY IN THE EVENING;?Continue Centrum Silver Tablet, -, Orally;?Continue clomiPRAMINE HCl Capsule, 75 MG, 1 capsule at bedtime, Orally, Once a day.? Referral To:Damaris Mo??Nurse Navigation ?Reason:assistance with obtaining new therapist advise of any other programs that may assist patient with his everyday life evaluate and assist patient with his severe depression and anxiety * Procedure Codes:? * Preventive Medicine:? ??Counseling:?Care [...] done: Medical or Other reason not done ?Smoking/Tobacco Use?Patient counseled on the dangers of tobacco use and urged to quit.?10/28/2024 * Follow Up:?3 Months, In thre e months (Reason: ov no tests, Regular check-up) * Images: * Sign off status: Completed true * Provider:?Soto France MD Date:?10/04 Generated for Shaan allan/Andreas/Kikesmitting on:?11/19/2024 02:39 PM EDT History and Physical Notes * HPI [...] had two or more falls in the st year?: No Fall Risk Assessment:: One fall [...]
--- OUTSIDE RECORDS SUMMARY | 2024-11-19 14:39 | XMS_ITS | Data Portability ---
Author Organization [place] - [facility], Allergy Address [address] [facility] [address] [place] [address] Care Team Providers Care Test Preparer Name Role Phone KEELEY SKAGGS Primary Care Provider [phone] Assessment Encounter Date Assessment Date Assessment LastModified [...] Sensorineur al hearing loss of bilateral ears 717214806 Active 2024 KEELEY Davis MD [address] [address], [place], [address], [facility] - [facility] 13:50:35 Bilateral earache 640946628 Active 2024 KEELEY Davis MD [address] [facility] 100, [place], [address], [facility] - [facility] 13:50:43 Tinnitus of left ear 1873440926901 Active 2024 MATILDE BROOKS MA, CCC-A [address] [facility], [place], [address], [facility] - [facility] [place] 14:25:27 Bilateral tinnitus 3276983390966 Active 2024 MATILDE BROOKS MA, [facility] [address] [facility], [place], [address], [facility] - [facility] [place] 14:25:27 Tinnitus of right ear 4277423814215 Active 2024 MATILDE BROOKS MA, [facility] [address] [facility], [place], [address], [facility] - [facility] [place] 14:25:27 Problem Notes None recorded. Procedures Surgical History Date Name Laterality Status Provider Name and Address Organization Details Recorded Time 11/13/2024 Comp Audio with Tymps (04350 & 04262) completed MATILDE BROOKS MA, CCC-A [address] [facility],[address] [address], [place], [address], [facility] [place] 11/13/2024 14:25:26 11/13/2024 FFL_RE completed KEELEY GRAF MD [address] [facility],[address] [address], [place], [address], [facility] [place] 11/13/2024 13:53:48 Imaging Results Imaging Date Name Status LastModified by Organiz ation Details LastModified Time 11/13/2024 audiogram completed BARCODE Information no t available 11/13/2024 15:46:32 Procedure Notes None recorded. Medical Equipment None [...] Updated DateTime 11/13/2024 177.8 cm 28 kg/m2 96814.51 g Argentina Barajas [place] - [facility] 11/13/2024 13:18:11 Social History None recorded. Functional Status None recorded. Mental Status None recorded. Family History Nothing Reported. Medical History No medical history recorded. Past Encounters Encounter ID Performer Location Encounter Start Date Encounter Closed Date Diagnosis/Indication Diagnosis SNOMED-CT Code Diagnosis ICD10 Code Diagnosis Note [id number] KEELEY GRAF MD [facility] [address] [address] 11/13/2024 12:48:09 11/13/2024 14:43:59 Sensorineural hearing loss of bilateral ears 225137726 H90.3 Audio showed SNHL AU. I gave clearance for hearing aids. Bilateral earache 794659 003 H92.03 No obvious source. Ear exam normal. TMJ exam normal. FFL performed to exclude referred pain which was negative. I offered a CT neck with contrast to exclude an underlying neoplastic process but he deferred as he has no current pain. He will call if it worsens. [id number] MATILDE BROOKS MA, CCC-A [facility] [address] [address] 11/13/2024 14:24:40 11/13/2024 15:49:35 Bilateral tinnitus 1206793755 102 H93.13 Tinnitus of right ear 48 94146459 108 H93.11 Tinnitus of left ear 131 4377482 106 H93.12 Sensorineu ral hearing loss of bilateral ears 997111604 H90.3 Audiologic al evaluation results: Right ear: [...] by Organization Details LastModified Time None Recorded Advance Directives Directive None Recorded Payers Encounter Date Sequence Insurance Name Policy Number Policy Briceno Covered Member ID Briceno Member ID Guarantor Name 11/13/2024 2 [place] [facility] Louis Sanchez [id number] Louis Sanchez 11/13/2024 1 [place] [employer] Louis Sanchez [id number] Louis Sanchez 11/13/2024 2 [place] [facility] Louis Sanchez [id number] Louis Sanchez 11/13/2024 1 [place] [employer] Louis Sanchez [id number] Louis Duong Daniel Notes Date Note Type Note Provider Name [...] dentures and denies bruxism. KEELEY GRAF MD [address] [place] [address], [phone], [facility] - [facility] [place] 11/13/2024 14:43:55 11/13/2024 text/html Londstanding history of noise exposure MATILDE BROOKS MA, CCC-A [address] [place] [address], [place], [address], [facility] - [facility] 11/13/2024 14:30:16
--- OUTSIDE RECORDS SUMMARY | 2024-11-19 14:40 | XMS_ITS | Continuity of Care Document ---
Author Organization [place] - [facility], [facility] Address 100 [place] [address] Care Team Providers Care Substance Abuse Specialist Name Role Phone KEELEY SKAGGS Primary Care Provider Assessment No assessment recorded. Plan of Treatment Reminders Order Date Submit [...] Sensorineur al hearing loss of bilateral ears 204420864 Active 2024 KEELEY Davis MD [address] [place], [place] [address], [address], [facility] - [facility] 13:50:35 Bilateral earache 851190575 Active 2024 KEELEY Davis MD [address] [place] [address], [place], [address], [facility] - [facility] 13:50:43 Tinnitus of left ear 3075444805284 Active 2024 MATILDE BROOKS MA, CCC-A [address] [place] [address], [place], [address], [facility] - [facility] [place] 14:25:27 Bilateral tinnitus 7543171269647 Active 2024 MATILDE BROOKS MA, [facility] 100 [facility],[address] [address], [place], [address], [facility] - [facility] [place] 14:25:27 Tinnitus of right ear 1406158314618 Active 2024 MATILDE BROOKS [place], [facility] 100 [facility] 100, [place], [address], [facility] [place] 14:25:27 Problem Notes None recorded. Procedures Surgical History Date Name Laterality Status Provider Name and Address Organization Details Recorded Time 11/13/2024 Comp Audio with Tymps (28198 & 49797) completed MATILDE BROOKS MA, [address], [address], [facility] [place] 11/13/2024 14:25:26 11/13/2024 FFL_RE completed KEELEY GRAF MD [address] [place] [address], [phone], [facility] [place] 11/13/2024 13:53:48 Imaging Results None recorded. Procedure [...] Updated DateTime 11/13/2024 177.8 cm 28 kg/m2 43054.51 g Argentina Barajas [place] - [facility] [place] 11/13/2024 13:18:11 Social History None recorded. Functional Status None recorded. Mental Status None recorded. Family History Nothing Reported. Medical History No medical history recorded. Past Encounters Encounter ID Performer Location Encounter Start Date Encounter Closed Date Diagnosis/Indication Diagnosis SNOMED-CT Code Diagnosis ICD10 Code Diagnosis Note [id number] KEELEY GRAF MD [facility] [address] [address] 11/13/2024 12:48:09 11/13/2024 14:43:59 Sensorineural hearing loss of bilateral ears 757725534 H90.3 Audio showed SNHL AU. I gave clearance for hearing aids. Bilateral earache 778047 003 H92.03 No obvious source. Ear exam normal. TMJ exam normal. FFL performed to exclude referred pain which was negative. I offered a CT neck with contrast to exclude an underlying neoplastic process but he deferred as he has no current pain. He will call if it worsens. [id number] MATILDE BROOKS MA, CCC-A [facility] [address] [address] 11/13/2024 14:24:40 11/13/2024 15:49:35 Bilateral tinnitus 8111142890 102 H93.13 Tinnitus of right ear 48 83479841 108 H93.11 Tinnitus of left ear 989 2474351 106 H93.12 Sensorineu ral hearing loss of bilateral ears 952550906 H90.3 Audiologic al evaluation results: Right ear: [...] Member ID Guarantor Name 11/13/2024 2 [place] [facility] Louis Duong Daniel [id number] Louis Sanchez 11/13/2024 1 [place] B[place] [employer] Louis Sanchez [id number] Louis Rhoda Sanchez Notes Date Note Type Note Provider [...] dentures and denies bruxism. KEELEY GRAF MD [address] [place] [address], [phone], [facility] - [facility] [place] 11/13/2024 14:43:55 11/13/2024 text/html Londstanding history of noise exposure MATILDE BROOKS MA, CCC-A [address] [place] [address], [phone], [facility] - [facility] 11/13/2024 14:30:16
--- OUTSIDE RECORDS SUMMARY | 2024-11-19 14:40 | XMS_ITS ---
Author Organization Soto France III, MD Address [address] [place] [address] [place] [address] Care Team Providers Care Frame Stylist Name Role Phone Soto France Primary Care Provider REASON FOR VISIT Message Social History Sex Assigned At : Social History Observation Description Sex Assigned At Male Encounters Encounter Location Date Provider Diagnosis Soto France III, MD [address] [place] [address] [place] [address] 10/21/2024 Soto France Plan Of Treatment Next Appt Details Provider Name:Soto France, 01/27/2025 02:45:00 PM, [address] [place] [address] [place], [address], Provider Name:Soto France, 11/01/2025 03:00:00 PM, [address] [place] [address] [place], [address], Progress Notes * SADI SANCHEZDOB: 4 (59 yo M)Acc No.[id number]:10/21/2024 Patient:?SADI SANCHEZ :1965???Age:59 Y???Sex:Male Address:[address] [place], [place] [address]Bhupinder CABRERA, ANTHON[place], [place], [address] * true * Date:? Generated for Shaan allan/Andreas/Stephon on:?11/19/2024 02:39 PM EDT
== END 2024-11-19 12:17 | disposition home or self-care (01) ==
LOC: HO.HAP 12:16
PROVIDERS: Visit Provider Otolaryngology
DX: Z46.1 Encounter for fitting and adjustment of hearing aid (principal); H90.3 Sensorineural hearing loss, bilateral
CPT/HCPCS: 92591

== ENCOUNTER 2024-11-26 12:17 | Outpatient (REF) | payer MEDICARE, MEDICAID, SELFPAY ==
--- NOTE | 2024-11-26 13:14 | MHC.AU.HA2 ---
Hearing Instrument Fitting- Adult- Binaural Date of Visit: 11/26/24 Hearing Instruments Dispensed: Right Ear: Make, Model, Color, Serial Number: Oticon Intent 2 miniRITE-R SN: [id number] Color: Silver Bennett Dehydration Plant Operator Repair Warranty: 12/20/2027 Dehydration Plant Operator Loss and Damage Warranty: 12/20/2027 [facility] Service Plan: 11/26/2025 Battery Size: Rechargeable Bag Press Operator/Slim Tube: 3/85 Earmold/Dome/CShell/SlimTip: 8mm double lebron dome (no retention tail) Type of Wax Guard: miniFit Left Ear: Make, Model, Color, Serial Number: Oticon Intent 2 miniRITE-R SN: [id number] Color: Silver Bennett Dehydration Plant Operator Repair Warranty: 12/20/2027 Dehydration Plant Operator Loss and Damage Warranty: 12/20/2027 [facility] Service Plan: 11/26/2025 Battery Size: Rechargeable Bag Press Operator/Slim Tube: 3/85 Earmold/Dome/CShell/SlimTip: 8mm double lebron dome (no retention tail) Type of Wax Guard: miniFit Accessories/Assistive Technology: Oticon [employer] Cleaning Supervisor Minirite SN: [id number] Summary of Fitting: Performed electroacoustic analysis in test box prior to appointment. Ran feedback analyzer and real ear measures. Comfortable at real ear settings. Discussed care, use, and rechargeability including manually turning on/off, VC use, and changing domes and wax guards. Emphasized importance of daily, consistent use. Did not want to pair to cell phone at this time. Recommendations: A hearing instrument follow-up was scheduled. Diagnosis Code(s): Primary Diagnosis: H90.3 Bilateral Sensorineural Hearing Loss Signature: Provider: Ru Avendaño, [facility]
--- OUTSIDE RECORDS SUMMARY | 2024-11-26 15:34 | XMS_ITS ---
Author Organization Soto France III, MD Address [address] [place] [address] [place] [address] Care Team Providers Care Fire Control Technician B Name Role Phone Soto France Primary Care [...] Provider Speciality Internal M edicine Referred Organization [facility] nter Referred Provider Damaris Mo Referred Address [address] [place] [address],[facility], [place],[phone], Referred Provider Specialty Nurse Jones patricia General [...] Date Provider Diagnosis Soto France III, MD [address] [place] [address] [place] [address] 10/28/2024 Soto Franec History of umbilical hernia Z87.19 ; Persistent [...] His reflux symptoms have been well-controlled with xnvp-wrh-swaugjo medication. These were continued. 10/28/2024 Mixed hyperlipidemia [...] his severe depression and anxiety, Damaris Mo, [address] [place] [address], [place], [place], [phone], Next Appt Details Follow Up: 3 Months, In thre e months, Reason: ov no tests, Regular check-up Provider Name:Soto Montesinosrne, 01/27/2025 02:45:00 PM, [address] [facility] KE[place]HI[place], [place], [address], Provider Name:Soto Montesinosrne, 11/01/2025 03:00:00 PM, [address] [facility] [place], [address], Progress Notes * SADI SANCHEZDOB: 4 (59 yo M)Acc No.[id number]:10/28/2024 Progress Notes Patient:?AMOL SADI Duong Provider:?Soto France MD :1965???Age:59 Y???Sex:Male Tony e:10/28/2024 Address:[address] [place] [address] ANTHONY [place], [phone] Subjective: * Chief Complaints: * ???Annual Exam [...] do so today stating that 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 This will be done in the near future. * ROS:?General/Constitutional:?pain?only normal aches and pains.?Chills?denies.?Fatigue?admits.?Fever?denies.?ENT:?Decreased hearing?denies.?Respiratory:?Cough?denies.?Cardiovascular:?Chest pain with exertion?denies.?Dyspnea on exertion?denies.?Shortness of breath?denies.?Gastrointestinal:?Constipation?occasional.?Decreased appetite?denies.?Diarrhea?denies.?Heartburn?denies.?Nausea?denies.?Rectal bleeding?denies.?Vomiting?denies.?Hematology:?bruising?denies.?petechiae?denies.?Swollen glands?none have been noted.?Genitourinary:?Frequent urination?once a night.?Musculoskeletal:?Muscle aches?denies.?Painful joints?denies.?Sciatica?denies.?Weakness?denies.?Skin:?Itching?denies.?Rash?denies.?Skin lesion(s)?denies.?Neurologic:?Difficulty speaking?denies.?Dizziness?denies.?Headache?denies.?Low back pain?denies.?Psychiatric:?Depressed mood?which is moderate.? * Medical History:? * Surgical History:?umbilical hernia repair 04/11colonoscopy age 51No history * Hospitalization/Major Diagno stic Procedure:?allergic reaction 10/2018[facility] few hours 04/2020Memory loss [facility] 10/2020No history * Family History:?Father: dece [...] for 21 years. He is working for [employer] and has no toxic exposures. The patient [...] :His reflux symptoms have been well-controlled with vyde-pyr-ctwfgxh medication. These were continued.???5.?Mixed hyperlipidemia - E78.2???Notes [...] France MD Date:?10/04 Generated for Shaan allan/Andreas/Kikesmitting on:?11/26/2024 03:34 PM EDT History and Physical Notes * [...]
--- OUTSIDE RECORDS SUMMARY | 2024-11-26 15:34 | XMS_ITS ---
Author Organization Soto France III, MD Address [address] [place] [address] [place] [address] Care Team Providers Care Ships Equipment Engineer Name Role Phone Soto France Primary Care Provider [phone] REASON FOR VISIT FYI only Social History Sex Assigned At : Social History Observation Description Sex Assigned At Male Encounters Encounter Location Date Provider Diagnosis Soto France III, MD [address] [place] [address] [place] [address] 11/03/2024 Soto France Plan Of Treatment Next Appt Details Provider Name:Soto France, 01/27/2025 02:45:00 PM, [address] [place] [address] [place], [address], Provider Name:Soto France, 11/01/2025 03:00:00 PM, [address] [place] [address] [place], [address], Progress Notes * SADI SANCHEZDOB: [birth year] (59 yo M)Acc No.[id number]:11/03/2024 Patient:?SADI SANCHEZ :1965???Age:59 Y???Sex:Male Address:[address] [place] [address] RICK, [place], [address] * true * Date:? Generated for Shaan allan/Andreas/Stephon on:?11/26/2024 03:34 PM EDT
--- OUTSIDE RECORDS SUMMARY | 2024-11-26 15:34 | XMS_ITS | Patient Health Record ---
Author Organization Soto France III, MD Address [address] [place] [address] [place] [address] Care Team Providers Care Tray Drier Operator Name Role Phone Soto France Primary Care Provider Allergies Allergen (clinical drug ingredient) Drug/Non Drug Allergy documented on EMR Reaction Allergy Type Onset Date Status ibuprofen Ibuprofen Unknown Drug Allergy Active Yellow Jacket Venom Unknown Drug Allergy Active naproxen Naprosyn Unknown Drug Allergy Active Results Component Value Reference Range Notes Complete Blood Count Auto Di ff Reviewed date:10/28/2024 03:12:14 PM Interpretation: Performing Lab:[facility], [address] [place] [phone] Notes/Report: White Blood Count 6.7 4.8-10.8 X10*3/uL [...] NRBC Abs Auto 0.000 0.0-0.012 X10*3/uL Comprehensive [place]. Panel Fa st Reviewed date:10/28/2024 03:12:14 PM Interpretation: Performing Lab:[facility], [address] [place] [phone] Notes/Report: Sodium 141 135-145 mmol/L Potassium 4.1 [...] Panel Reviewed date:10/28/2024 03:12:14 PM Interpretation: Performing Lab:[facility], [address] [place] [phone] Notes/Report: Triglycerides 132 <150 mg/dL Desirable Triglyceride: [...] Antigen Reviewed date:10/28/2024 03:12:14 PM Interpretation: Performing Lab:[facility], [address] [place] [phone] Notes/Report: Prostate Specific Antigen 1.95 <0.05-4.0 ng/mL [...] M edicine Referred Provider [facility], [facility] Referred Provider Specialty Otolaryngolo gy General [...] Provider Speciality Internal M edicine Referred Organization [facility] Referred Provider Damaris Mo Referred Address [address] [place] [address],[place], [place],[id number],[place] Referred Provider Specialty Nurse Jones patricia General Notes Arleen Roe [facility] 11/02 10:59:28 AM > REFERRAL/ DEMO/PROGRESS NOTE FAXED TO Bhupinder LAWSON Suzanne [facility] 11/10/2024 03:22:20 PM >Regino Mo RN spoke [...] Problem Status W/U Status Risk Notes Problem 0383432 Former smoker (Z87.891) Active confirmed He is highly motivated not to smoke. We discussed a plan to prevent relapse in times of stress and illness. Problem 609253184 Overweight (E66.3) Active confirmed He has lost 2 pounds his body mass index is 28. We discussed diet and nutrition and a weight loss strategy. He will try to lose weight at a rate of one half of a pound per week. Problem 218674441989790 Obesity (BMI 30.0-34.9) (E66.9) Active confirmed We have discussed his diet and his nutrition. He is trying to lose weight. We have reviewed his weight loss strategy. We made a plan to lose weight at a rate of one half of a pound per week. Problem 20918215 Anxiety (F41.9) Active confirmed He has been taking his medication. He is beginning to feel better. His issues at work or less pressing now. Problem 049030089 Mixed hyperlipidemia (E78.2) Active confirmed The current fasting lipid profile shows his cholesterol to be in the target range. I recommended weight loss and consumption of a healthy diet. We discussed nutrition today. Problem 140827245 GERD without esophagitis (K21.9) Active confirmed His reflux symptoms have been well-controlled with sfah-obc-gmtohj r medication. These were continued. Problem Benign prostatic hyperplasia (229321386) BPH (benign prostatic hyperplasia) (N40.0) Active confirmed He rises from sleep on the average of once a night. We have discussed several lifestyle modifications he could make to avoid nocturia. Problem 79776339 Memory loss (R41.3) Active confirmed He is no longer complaining about his memory. He seemed intact today. Problem 46201363 Hiatal hernia (K44.9) Active confirmed His symptoms have been mild and limited to the epigastric area. His nutritional status is good and his weight is stable. Problem Basal cell carcinoma (0580492) Basal cell carcinoma (C44.91) Active confirmed The lesion was excised from the right side of his head this morning. We will await the pathology and the margins report. Problem 024446125 History of umbilical hernia (Z87.19) Active confirmed He is free o f any symptoms at this time. He feels occasional pressure with sustained abdominal contraction but is otherwise free of pain Problem 503720664 History of depression (Z86.59) Active confirmed He was instructed to continue to see his therapist weekly and to take his antidepressant medication. He will be seen here frequently and his medications adjusted. It is felt that the therapist can get him to see a prescriber. Problem 576206111 Renal cyst, left (N28.1) Active confirmed A repeat image of the kidney is due. Problem 9596120214 Persistent depressive disorder (F34.1) Active confirmed He [...] Date Provider Diagnosis Soto France III, MD [address] [place] [address] [place] [address] 01/24/2024 Soto France History of umbilical hernia Z87.19 ; Ear pain, right H92.01 ; Former smoker Z87.891 ; GERD without esophagitis K21.9 ; Mixed hyperlipidemia E78.2 ; Persistent depressive disorder F34.1 and Overweight E66.3 Soto France III, MD [address] [place] [address] [place] [address] 02/07/2024 Soto France History of umbilical hernia Z87.19 ; Mixed hyperlipidemia E78.2 ; GERD without esophagitis K21.9 ; Former smoker Z87.891 ; Persistent depressive disorder F34.1 ; BPH (benign prostatic hyperplasia) N40.0 ; Overweight E66.3 and Right ear pain H92.01 Soto France III, MD [address] [place] [address] [place] [address] 04/09/2024 Soto France GERD without esophag itis K21.9 ; Mixed hyperlipidemia E78.2 ; Former smoker Z87.891 ; Anxiety F41.9 ; Overweight E66.3 ; Basal cell carcinoma C44.91 and Persistent depressive disorder F34.1 Soto France III, MD [address] [place] [address] [place] [address] 07/02/2024 Soto France Mixed hyperlipidemia E78.2 ; History of depression Z86.59 ; BPH (benign prostatic hyperplasia) N40.0 ; Overweight E66.3 ; Former smoker Z87.891 ; GERD without esophagitis K21.9 ; History of umbilical hernia Z87.19 and Hiatal hernia K44.9 Soto France III, MD [address] [place] [address] [place] [address] 10/28/2024 Soto France History of umbilical hernia Z87.19 ; Persistent depressive disorder F34.1 ; Hiatal hernia K44.9 ; GERD without esophagitis K21.9 ; Mixed hyperlipidemia E78.2 ; Former smoker Z87.891 ; BPH (benign prostatic hyperplasia) N40.0 and Overweight E66.3 Soto France III, MD [address] [place] [address] [place] [address] 09/04/2024 Soto France III, MD [address] [place] [address] [place] [address] 10/21/2024 Soto France III, MD [address] [place] [address] [place] [address] 11/03/2024 Soto France Assessments Encounter Date Diagnosis [...] His reflux symptoms have been well-controlled with wrxr-fui-niqkiox medication. These were continued. 07/02/2024 Mixed hyperlipidemia [...] His reflux symptoms have been well-controlled with wsou-mmp-yncrpju medication. These were continued. 04/09/2024 Former smoker [...] His reflux symptoms have been well-controlled with smhb-tmq-kthugbv medication. These were continued. 02/07/2024 Former smoker [...] His reflux symptoms have been well-controlled with efyk-jrb-dpxglyo medication. These were continued. 01/24/2024 Mixed hyperlipidemia [...] His reflux symptoms have been well-controlled with awka-jjd-jjdahsd medication. These were continued. 10/28/2024 Former smoker [...] Details Provider Name:Soto France, 01/27/2025 02:45:00 PM, [address] [place] [address] , [facility] Xochilt, [place], [address], Provider Name:Soto France, 11/01/2025 03:00:00 PM, [address] [facility] [address], [place], [address], Insurance Providers Payer Name Payer Address Payer Phone Subscriber Number Group Number Insured Name Patient Relationship to Insured Coverage Start Date Coverage End Date MEDICARE NGS [address] [place] [address] [id number] SADI SANCHEZ Self - patient is the insured MEDICAID [place] [address] [place] [id number] SADI SANCHEZ Self - patient is the [...] Hospitalization History Reason Date(Month/Year) allergic reaction 10/2018 [facility] few hours 04/2020 Memory loss [facility] 10/2020 No history
--- OUTSIDE RECORDS SUMMARY | 2024-11-26 15:35 | XMS_ITS ---
Author Organization Soto France III, MD Address [address] [place] [address] [place] [address] Care Team Providers Care Program Development Manager Name Role Phone Soto France Primary Care Provider [phone] REASON FOR VISIT Message Social History Sex Assigned At : Social History Observation Description Sex Assigned At Male Encounters Encounter Location Date Provider Diagnosis Soto France III, MD [address] [place] [address] [place] [address] 10/21/2024 Soto France Plan Of Treatment Next Appt Details Provider Name:Soto France, 01/27/2025 02:45:00 PM, [address] [place] [address] [place], [address], Provider Name:Soto France, 11/01/2025 03:00:00 PM, [address] [place] [address] [place], [address], Progress Notes * SADI SANCHEZDOB: 4 (59 yo M)Acc No.[id number]:10/21/2024 Patient:?SADI SANCHEZ :1965???Age:59 Y???Sex:Male Address:[address] [place], [place] [address]Bhupinder CABRERA, ANTHONY [place], [place], [address] * true * Date:? Generated for Shaan allan/Andreas/Stephon on:?11/26/2024 03:34 PM EDT
== END 2024-11-26 12:18 | disposition home or self-care (01) ==
LOC: HO.HAP 12:17
PROVIDERS: PCP Internal Medicine Medical Oncology; Visit Provider Otolaryngology
DX: Z46.1 Encounter for fitting and adjustment of hearing aid (principal); H90.3 Sensorineural hearing loss, bilateral
CPT/HCPCS: 92595; V5011; V5020; V5160; V5261

== ENCOUNTER 2024-12-15 13:57 | Outpatient (REF) | payer MEDICARE, MEDICAID, SELFPAY ==
--- OUTSIDE RECORDS SUMMARY | 2024-12-15 17:14 | XMS_ITS ---
Author Organization Soto France III, MD Address [address] [place] [address] [place] [address] Care Team Providers Care Rn Lactation Consultant Name Role Phone Soto France Primary Care [...] Provider Speciality Internal M edicine Referred Organization [facility] nter Referred Provider Damaris Mo Referred Address [address] [place] [address],[facility], [place],[phone], Referred Provider Specialty Nurse Jones patricia General [...] Provider Diagnosis Soto France III, MD [address] [place] [address] [place] [address] 10/28/2024 Soto France History of umbilical hernia [...] His reflux symptoms have been well-controlled with djtf-nvv-foyaoeu medication. These were continued. 10/28/2024 Mixed hyperlipidemia [...] his severe depression and anxiety, Damaris Mo, [address] [place] [address], [place], [place], [phone], Next Appt Details Follow Up: 3 Months, In thre e months, Reason: ov no tests, Regular check-up Provider Name:Soto Montesinosrne, 01/27/2025 02:45:00 PM, [address] [facility] [address], [place], [address], Provider Name:Soto Montesinosrne, 11/01/2025 03:00:00 PM, [address] [facility] [place], [address], Progress Notes * SADI SANCHEZDOB: [birth year] (59 yo M)Acc No.[id number]:10/28/2024 Progress Notes Patient:?AMOL SADI Duong Provider:?Soto France MD :1965???Age:59 Y???Sex:Male Tony e:10/28/2024 Address:[address] [place] [address] ANTHON[place], [phone] Subjective: * Chief Complaints: * ???Annual Exam [...] do so today stating that 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 This will be done in the near future. * ROS:?General/Constitutional:?pain?only normal aches and pains.?Chills?denies.?Fatigue?admits.?Fever?denies.?ENT:?Decreased hearing?denies.?Respiratory:?Cough?denies.?Cardiovascular:?Chest pain with exertion?denies.?Dyspnea on exertion?denies.?Shortness of breath?denies.?Gastrointestinal:?Constipation?occasional.?Decreased appetite?denies.?Diarrhea?denies.?Heartburn?denies.?Nausea?denies.?Rectal bleeding?denies.?Vomiting?denies.?Hematology:?bruising?denies.?petechiae?denies.?Swollen glands?none have been noted.?Genitourinary:?Frequent urination?once a night.?Musculoskeletal:?Muscle aches?denies.?Painful joints?denies.?Sciatica?denies.?Weakness?denies.?Skin:?Itching?denies.?Rash?denies.?Skin lesion(s)?denies.?Neurologic:?Difficulty speaking?denies.?Dizziness?denies.?Headache?denies.?Low back pain?denies.?Psychiatric:?Depressed mood?which is moderate.? * Medical History:? * Surgical History:?umbilical hernia repair 04/11colonoscopy age 51No history * Hospitalization/Major Diagno stic Procedure:?allergic reaction 10/2018[facility] few hours 04/2020Memory loss [facility] 10/2020No history * Family History:?Father: dece [...] for 21 years. He is working for [employer] and has no toxic exposures. The patient [...] :His reflux symptoms have been well-controlled with svzd-fyk-arbwddt medication. These were continued.???5.?Mixed hyperlipidemia - E78.2???Notes [...] France MD Date:?10/04 Generated for Shaan allan/Andreas/Kikesmitting on:?12/15/2024 05:13 PM EDT History and Physical Notes * [...]
--- OUTSIDE RECORDS SUMMARY | 2024-12-15 17:14 | XMS_ITS ---
Author Organization Soto France III, MD Address [address] [place] [address] [place] [address] Care Team Providers Care Pack Worker Name Role Phone Soto France Primary Care Provider REASON FOR VISIT FYI only Social History Sex Assigned At : Social History Observation Description Sex Assigned At Male Encounters Encounter Location Date Provider Diagnosis Soto France III, MD [address] [place] [address] [place] [address] 11/03/2024 Soto France Plan Of Treatment Next Appt Details Provider Name:Soto France, 01/27/2025 02:45:00 PM, [address] [place] [address] [place], [address], Provider Name:Soto France, 11/01/2025 03:00:00 PM, [address] [place] [address] [place], [address], Progress Notes * SADI SANCHEZDOB: 4 (59 yo M)Acc No.[id number]:11/03/2024 Patient:?SADI SANCHEZ :1965???Age:59 Y???Sex:Male Address:[address] [place] [address], [place], [address] * true * Date:? Generated for Shaan allan/Andreas/Stephon on:?12/15/2024 05:13 PM EDT
--- OUTSIDE RECORDS SUMMARY | 2024-12-15 17:14 | XMS_ITS | Patient Health Record ---
Author Organization Soto France III, MD Address [address] [place] [address] [place] [address] Care Team Providers Care Audio Visual Manager Name Role Phone Soto France Primary Care Provider Allergies Allergen (clinical drug ingredient) Drug/Non Drug Allergy documented on EMR Reaction Allergy Type Onset Date Status ibuprofen Ibuprofen Unknown Drug Allergy Active Yellow [place]et Venom Unknown Drug Allergy Active naproxen Naprosyn Unknown Drug Allergy Active Results Component Value Reference Range Notes Complete Blood Count Auto Di ff Reviewed date:10/28/2024 03:12:14 PM Interpretation: Performing Lab:[facility], [address] [place] [phone] Notes/Report: White Blood Count 6.7 4.8-10.8 X10*3/uL [...] NRBC Abs Auto 0.000 0.0-0.012 X10*3/uL Comprehensive [place]. Panel Fa st Reviewed date:10/28/2024 03:12:14 PM Interpretation: Performing Lab:[facility], [address] [place] [phone] Notes/Report: Sodium 141 135-145 mmol/L Potassium 4.1 [...] Panel Reviewed date:10/28/2024 03:12:14 PM Interpretation: Performing Lab:[facility], [address] [place] [phone] Notes/Report: Triglycerides 132 <150 mg/dL Desirable Triglyceride: [...] Antigen Reviewed date:10/28/2024 03:12:14 PM Interpretation: Performing Lab:[facility], [address] [place] [phone] Notes/Report: Prostate Specific Antigen 1.95 <0.05-4.0 ng/mL [...] [facility].T[facility], of [facility], [facility] Referred Provider Specialty Otolaryngolo gy General [...] Provider Speciality Internal M edicine Referred Organization [facility] Referred Provider Damaris Mo Referred Address [address] [place] [address],[place], [place],[phone],[place] Referred Provider Specialty Nurse Jones patricia General Notes Arleen Roe [facility] 11/02 10:59:28 AM > REFERRAL/ DEMO/PROGRESS NOTE FAXED TO Bhupinder LAWSON Suzanne [facility] 11/10/2024 03:22:20 PM >Regino Mo RN spoke [...] Problem Status W/U Status Risk Notes Problem 4192455 Former smoker (Z87.891) Active confirmed He is highly motivated not to smoke. We discussed a plan to prevent relapse in times of stress and illness. Problem 260848642 Overweight (E66.3) Active confirmed He has lost 2 pounds his body mass index is 28. We discussed diet and nutrition and a weight loss strategy. He will try to lose weight at a rate of one half of a pound per week. Problem 769837593970010 Obesity (BMI 30.0-34.9) (E66.9) Active confirmed We have discussed his diet and his nutrition. He is trying to lose weight. We have reviewed his weight loss strategy. We made a plan to lose weight at a rate of one half of a pound per week. Problem 82398667 Anxiety (F41.9) Active confirmed He has been taking his medication. He is beginning to feel better. His issues at work or less pressing now. Problem 222490571 Mixed hyperlipidemia (E78.2) Active confirmed The current fasting lipid profile shows his cholesterol to be in the target range. I recommended weight loss and consumption of a healthy diet. We discussed nutrition today. Problem 912130378 GERD without esophagitis (K21.9) Active confirmed His reflux symptoms have been well-controlled with jvqw-sem-ttfnei r medication. These were continued. Problem Benign prostatic hyperplasia (442670911) BPH (benign prostatic hyperplasia) (N40.0) Active confirmed He rises from sleep on the average of once a night. We have discussed several lifestyle modifications he could make to avoid nocturia. Problem 65436228 Memory loss (R41.3) Active confirmed He is no longer complaining about his memory. He seemed intact today. Problem 26172715 Hiatal hernia (K44.9) Active confirmed His symptoms have been mild and limited to the epigastric area. His nutritional status is good and his weight is stable. Problem Basal cell carcinoma (6847249) Basal cell carcinoma (C44.91) Active confirmed The lesion was excised from the right side of his head this morning. We will await the pathology and the margins report. Problem 439271594 History of umbilical hernia (Z87.19) Active confirmed He is free o f any symptoms at this time. He feels occasional pressure with sustained abdominal contraction but is otherwise free of pain Problem 747563315 History of depression (Z86.59) Active confirmed He was instructed to continue to see his therapist weekly and to take his antidepressant medication. He will be seen here frequently and his medications adjusted. It is felt that the therapist can get him to see a prescriber. Problem 144841623 Renal cyst, left (N28.1) Active confirmed A repeat image of the kidney is due. Problem 4910645004 Persistent depressive disorder (F34.1) Active confirmed He [...] Date Provider Diagnosis Soto France III, MD [address] [place] [address] [place] [address] 01/24/2024 Soto France History of umbilical hernia Z87.19 ; Ear pain, right H92.01 ; Former smoker Z87.891 ; GERD without esophagitis K21.9 ; Mixed hyperlipidemia E78.2 ; Persistent depressive disorder F34.1 and Overweight E66.3 Soto France III, MD [address] [place] [address] [place] [address] 02/07/2024 Soto France History of umbilical hernia Z87.19 ; Mixed hyperlipidemia E78.2 ; GERD without esophagitis K21.9 ; Former smoker Z87.891 ; Persistent depressive disorder F34.1 ; BPH (benign prostatic hyperplasia) N40.0 ; Overweight E66.3 and Right ear pain H92.01 Soto France III, MD [address] [place] [address] [place] [address] 04/09/2024 Soto France GERD without esophag itis K21.9 ; Mixed hyperlipidemia E78.2 ; Former smoker Z87.891 ; Anxiety F41.9 ; Overweight E66.3 ; Basal cell carcinoma C44.91 and Persistent depressive disorder F34.1 Soto France III, MD [address] [place] [address] [place] [address] 07/02/2024 Soto France Mixed hyperlipidemia E78.2 ; History of depression Z86.59 ; BPH (benign prostatic hyperplasia) N40.0 ; Overweight E66.3 ; Former smoker Z87.891 ; GERD without esophagitis K21.9 ; History of umbilical hernia Z87.19 and Hiatal hernia K44.9 Soto France III, MD [address] [place] [address] [place] [address] 10/28/2024 Soto France History of umbilical hernia Z87.19 ; Persistent depressive disorder F34.1 ; Hiatal hernia K44.9 ; GERD without esophagitis K21.9 ; Mixed hyperlipidemia E78.2 ; Former smoker Z87.891 ; BPH (benign prostatic hyperplasia) N40.0 and Overweight E66.3 Soto France III, MD [address] [place] [address] [place] [address] 09/04/2024 Soto France III, MD [address] [place] [address] [place] [address] 10/21/2024 Soto France III, MD [address] [place] [address] [place] [address] 11/03/2024 Soto France Assessments Encounter Date Diagnosis [...] His reflux symptoms have been well-controlled with avnp-udx-fknjmpy medication. These were continued. 07/02/2024 Mixed hyperlipidemia [...] His reflux symptoms have been well-controlled with catm-ojp-ssmckti medication. These were continued. 04/09/2024 Former smoker [...] His reflux symptoms have been well-controlled with uwys-ith-ftkxfef medication. These were continued. 02/07/2024 Former smoker [...] His reflux symptoms have been well-controlled with reos-qoz-zjhugum medication. These were continued. 01/24/2024 Mixed hyperlipidemia [...] His reflux symptoms have been well-controlled with qnam-qqw-fbshfki medication. These were continued. 10/28/2024 Former smoker [...] Details Provider Name:Soto France, 01/27/2025 02:45:00 PM, [address] [place] [address] , [facility] Xochilt, [place], [address], Provider Name:Soto France, 11/01/2025 03:00:00 PM, [address] [facility] [address], [place], [address], Insurance Providers Payer Name Payer Address Payer Phone Subscriber Number Group Number Insured Name Patient Relationship to Insured Coverage Start Date Coverage End Date MEDICARE NGS [address] [place] [address] [id number] SDAI SANCHEZ Self - patient is the insured MEDICAID [place] [address] [place] [id number] SADI SANCHEZ Self - patient is the [...] Hospitalization History Reason Date(Month/Year) allergic reaction 10/2018 [facility] few hours 04/2020 Memory loss [facility] 10/2020 No history
--- OUTSIDE RECORDS SUMMARY | 2024-12-15 17:14 | XMS_ITS ---
Author Organization Soto France III, MD Address [address] [place] [address] [place] [address] Care Team Providers Care Clinical Laboratory Director Name Role Phone Soto France Primary Care Provider REASON FOR VISIT Message Social History Sex Assigned At : Social History Observation Description Sex Assigned At Male Encounters Encounter Location Date Provider Diagnosis Soto France III, MD [address] [place] [address] [place] [address] 10/21/2024 Soto France Plan Of Treatment Next Appt Details Provider Name:Soto France, 01/27/2025 02:45:00 PM, [address] [place] [address] [place], [address], Provider Name:Soto France, 11/01/2025 03:00:00 PM, [address] [place] [address] [place], [address], Progress Notes * SADI SANCHEZDOB: 4 (59 yo M)Acc No.[id number]:10/21/2024 Patient:?SADI SANCHEZ :1965???Age:59 Y???Sex:Male Address:[address] [place] [address] RICK, ANTHONY [place], [place], [address] * true * Date:? Generated for Shaan allan/Andreas/Stephon on:?12/15/2024 05:13 PM EDT
--- OUTSIDE RECORDS SUMMARY | 2024-12-15 17:14 | XMS_ITS | Data Portability ---
Author Organization [place] - [facility], Allergy Address [address] [facility] [place] [address] Care Team Providers Care Career Technical Counselor Name Role Phone KEELEY SKAGGS Primary Care Provider Assessment Encounter Date Assessment Date Assessment LastModified [...] Sensorineur al hearing loss of bilateral ears 525901300 Active 2024 KEELEY Davis MD [address] [address], [place], [address], [facility] - [facility] 13:50:35 Bilateral earache 994132078 Active 2024 KEELEY Davis MD [address],[facility], [place], [address], [facility] - [facility] 13:50:43 Tinnitus of left ear 9702802735618 Active 2024 MATILDE BROOKS MA, CCC-A [address] [facility] [place], [facility] [place], [address], [facility] - [facility] 14:25:27 Bilateral tinnitus 1816126656745 Active 2024 MATILDE BROOKS [place], [facility] [address] [facility] [place], [facility] [place], [address], [facility] - [facility] 14:25:27 Tinnitus of right ear 3960676688500 Active 2024 MATILDE BROOKS [place], [facility] [address] [facility] [place], [place], [address], [facility] - [facility] 14:25:27 Problem Notes None recorded. Procedures Surgical History Date Name Laterality Status Provider Name and Address Organization Details Recorded Time 11/13/2024 Comp Audio with Tymps (47740 & 30191) completed MATILDE BROOKS MA, CCC-A [address] [facility] [address] [address], [place], [address], [facility] 11/13/2024 14:25:26 11/13/2024 FFL_RE completed KEELEY GRAF MD [address] [address] [address], [place], [address], [facility] 11/13/2024 13:53:48 Imaging Results Imaging Date Name [...] Updated DateTime 11/13/2024 177.8 cm 28 kg/m2 42291.51 g Argentina Barajas [place] - [facility] 11/13/2024 13:18:11 Social History None recorded. Functional Status None recorded. Mental Status None recorded. Family History Nothing Reported. Medical History No medical history recorded. Past Encounters Encounter ID Performer Location Encounter Start Date Encounter Closed Date Diagnosis/Indication Diagnosis SNOMED-CT Code Diagnosis ICD10 Code Diagnosis Note [id number] KEELEY GRAF MD [facility] [address] [address] 11/13/2024 12:48:09 11/13/2024 14:43:59 Sensorineural hearing loss of bilateral ears 906541757 H90.3 Audio showed SNHL AU. I gave clearance for hearing aids. Bilateral earache 452697 003 H92.03 No obvious source. Ear exam normal. TMJ exam normal. FFL performed to exclude referred pain which was negative. I offered a CT neck with contrast to exclude an underlying neoplastic process but he deferred as he has no current pain. He will call if it worsens. [id number] MATILDE BROOKS MA, CCC-A [facility] [address] [address] 11/13/2024 14:24:40 11/13/2024 15:49:35 Bilateral tinnitus 3754204602 102 H93.13 Tinnitus of right ear 48 54436085 108 H93.11 Tinnitus of left ear 227 0737274 106 H93.12 Sensorineu ral hearing loss of bilateral ears 713331401 H90.3 Audiologic al evaluation results: Right ear: [...] Member ID Guarantor Name 11/13/2024 2 [place] [facility] Louis Sanchez [id number] Louis Sanchez 11/13/2024 1 [place]: [employer] Louis Sanchez [id number] Louis Sanchez 11/13/2024 2 [place] [facility] Louis Sanchez [id number] Louis Sanchez 11/13/2024 1 [place] [employer] Louis Sanchez [id number] Louis Duong Daniel Notes Date Note Type [...] dentures and denies bruxism. KEELEY GRAF MD [address] [place] [address], [phone], [facility] - [facility] 11/13/2024 14:43:55 11/13/2024 text/html Londstanding history of noise exposure MATILDE BROOKS MA, CCC-A [address] [place] [address], [place], [address], [facility] - [facility] 11/13/2024 14:30:16
== END 2024-12-15 13:58 | disposition home or self-care (01) ==
LOC: HO.HAP 13:57
PROVIDERS: Visit Provider Internal Medicine Medical Oncology
DX: Z13.89 Encounter for screening for other disorder (principal)

== ENCOUNTER 2025-04-23 10:51 | Outpatient (REF) | payer MEDICARE, MEDICAID, SELFPAY ==
--- OUTSIDE RECORDS SUMMARY | 2025-04-23 10:55 | XMS_ITS | Patient Health Record ---
Author Organization Soto France III, MD Address [address] [place] [address] [place] [address] Care Team Providers Care Property Damage Claims Adjustor Name Role Phone Soto France Primary Care Provider Allergies Allergen (clinical drug ingredient) Drug/Non Drug Allergy documented on EMR Reaction Allergy Type Onset Date Status ibuprofen Ibuprofen Unknown Drug Allergy Active Yellow Jacket Venom Unknown Drug Allergy Active naproxen Naprosyn Unknown Drug Allergy Active Results Component Value Reference Range Notes Complete Blood Count Auto Di ff Reviewed date:10/28/2024 03:12:14 PM Interpretation: Performing Lab:[facility], [address] [place] [phone] Notes/Report: White Blood Count 6.7 4.8-10.8 X10*3/uL [...] NRBC Abs Auto 0.000 0.0-0.012 X10*3/uL Comprehensive Goltry. Panel Fa st Reviewed date:10/28/2024 03:12:14 PM Interpretation: Performing Lab:[facility], [address] [place] [phone] Notes/Report: Sodium 141 135-145 mmol/L Potassium 4.1 [...] Panel Reviewed date:10/28/2024 03:12:14 PM Interpretation: Performing Lab:[facility], [address] [place] [phone] Notes/Report: Triglycerides 132 <150 mg/dL Desirable Triglyceride: [...] Antigen Reviewed date:10/28/2024 03:12:14 PM Interpretation: Performing Lab:[facility], [address] [place] [phone] Notes/Report: Prostate Specific Antigen 1.95 <0.05-4.0 ng/mL PSA methodology: Mart Alinity i Chemiluminescent Microparticle Immunoassay (CMIA) Reason For Referral Reason assistance with obta [...] Provider Speciality Internal M edicine Referred Organization [facility] nt Referred Provider Damaris Mo Referred Address [address] [place] [address],[place], [id number], Referred Provider Specialty Nurse Jones patricia General Arleen Harrison CMA 11/02 10:59:28 AM > REFERRAL/ DEMO/PROGRESS NOTE FAXED TO Bhupinder LAWSON Suzanne CMA 11/10/2024 03:22:20 PM >Regino Mo RN spoke with patient over the phone and there is a note in the record Referral Priority Routine Reason bilateral thumb pain Diagnosis 1 Thumb pain, unspecif ied laterality (M79.646) Referral Organization Soto France III, MD Referring Provider First Name Soto Referring Provider Last Name Román Referring Provider Speciality Internal M edicine Referred Provider [facility] Referred Provider Specialty Rheumatology General Notes Arleen Roe [facility] 02/01 09:23:58 AM >ref/demo/progress notes faxed to [facility], Dayna Roee [facility] 03/11/2025 03:18:19 PM >called [facility] was told pt has appt on 03/26/2025 at 12:15pm Referral Priority Routine Referral Appointment Date 03/26/2025 Medications Medication SIG (Take, Route, Fr equency, [...] 1 tablet Orally Once a day Active Immunizations Vaccine Route Administration Date Status [...] Problem Status W/U Status Risk Notes Problem 4886427 Former smoker (Z87.891) Active confirmed He is highly motivated not to smoke. We discussed a plan to prevent relapse in times of stress and illness. Problem 809822730 Overweight (E66.3) Active confirmed He has lost 2 pounds his body mass index is 28. We discussed diet and nutrition and a weight loss strategy. He will try to lose weight at a rate of one half of a pound per week. Problem [id number] Obesity (BMI 30.0-34.9) (E66.9) Active confirmed We have discussed his diet and his nutrition. He is trying to lose weight. We have reviewed his weight loss strategy. We made a plan to lose weight at a rate of one half of a pound per week. Problem 44207183 Anxiety (F41.9) Active confirmed He has been taking his medication. He is beginning to feel better. His issues at work or less pressing now. Problem 854738401 Mixed hyperlipidemia (E78.2) Active confirmed The current fasting lipid profile shows his cholesterol to be in the target range. I recommended weight loss and consumption of a healthy diet. We discussed nutrition today. Problem 183955516 GERD without esophagitis (K21.9) Active confirmed His reflux symptoms have been well-controlled with tpzk-elk-dyuujb r medication. These were continued. Problem Benign prostatic hyperplasia (859209011) BPH (benign prostatic hyperplasia) (N40.0) Active confirmed He rises from sleep on the average of once a night. We have discussed several lifestyle modifications he could make to avoid nocturia. Problem 43200139 Memory loss (R41.3) Active confirmed He is no longer complaining about his memory. He seemed intact today. Problem 89194966 Hiatal hernia (K44.9) Active confirmed His symptoms have been mild and limited to the epigastric area. His nutritional status is good and his weight is stable. Problem Basal cell carcinoma (0577399) Basal cell carcinoma (C44.91) Active confirmed The lesion was excised from the right side of his head this morning. We will await the pathology and the margins report. Problem 267200449 History of umbilical hernia (Z87.19) Active confirmed He is free o f any symptoms at this time. He feels occasional pressure with sustained abdominal contraction but is otherwise free of pain Problem 278182027 History of depression (Z86.59) Active confirmed He was instructed to continue to see his therapist weekly and to take his antidepressant medication. He will be seen here frequently and his medications adjusted. It is felt that the therapist can get him to see a prescriber. Problem 376676332 Renal cyst, left (N28.1) Active confirmed A repeat image of the kidney is due. Problem 6054591658 Persistent depressive disorder (F34.1) Active confirmed He was continued on his current antidepressant. Close followup was arranged. There was no indication of self harm or suicidal intent. Vital Signs Heart Rate 80 /min 01/27/2025 Temperature 99.5 degrees Fahrenheit 01/27/2025 Blood pressure diastolic 83 mm Hg 01/27/2025 Height 69 in 01/27/2025 Blood pressure systolic 139 mm Hg 01/27/2025 Weight 195 lbs 01/27/2025 BMI 28.79 kg/m2 01/27/2025 Encounters Encounter Location Date Provider Diagnosis Soto France III, MD [address] [place] [address] [place] [address] 07/02/2024 Soto France Mixed hyperlipidemia E78.2 ; History of depression Z86.59 ; BPH (benign prostatic hyperplasia) N40.0 ; Overweight E66.3 ; Former smoker Z87.891 ; GERD without esophagitis K21.9 ; History of umbilical hernia Z87.19 and Hiatal hernia K44.9 Soto France III, MD [address] [place] [address] [place] [address] 10/28/2024 Soto France History of umbilical hernia Z87.19 ; Persistent depressive disorder F34.1 ; Hiatal hernia K44.9 ; GERD without esophagitis K21.9 ; Mixed hyperlipidemia E78.2 ; Former smoker Z87.891 ; BPH (benign prostatic hyperplasia) N40.0 and Overweight E66.3 Soto France III, MD [address] [place] [address] [place] [address] 01/27/2025 Soto France Overweight E66.3 ; History of umbilical hernia Z87.19 ; Hiatal hernia K44.9 ; GERD without esophagitis K21.9 ; Mixed hyperlipidemia E78.2 ; Former smoker Z87.891 ; Anxiety F41.9 ; Renal cyst, left N28.1 and History of depression Z86.59 Soto France III, MD [address] [place] [address] [place] [address] 09/04/2024 Soto France III, MD [address] [place] [address] [place] [address] 10/21/2024 Soto France III, MD [address] [place] [address] [address] [place] [address] 11/03/2024 Soto France Assessments Encounter Date Diagnosis [...] indication of self harm or suicidal intent. 01/27/2025 Overweight (ICD-10 - E66.3) He has [...] but is otherwise free of pain 07/02/2024 BPH (benign prostatic hyperplasia) (ICD-10 - N40.0) He rises from sleep on the average of once a night. We have discussed several lifestyle modifications he could make to avoid nocturia. 10/28/2024 Hiatal hernia (ICD-10 - K44.9) His symptoms have been mild and limited to the epigastric area. His nutritional status is good and his weight is stable. 01/27/2025 Hiatal hernia (ICD-10 - K44.9) His symptoms have been mild and limited to the epigastric area. His nutritional status is good and his weight is stable. 07/02/2024 Overweight (ICD-10 - E66.3) He has lost 2 pounds his body mass index is 28.2. We discussed diet and nutrition and a weight loss strategy. He will try to lose weight at a rate of one half of a pound per week. 10/28/2024 GERD without esophagitis (ICD-10 - K21.9) His reflux symptoms have been well-controlled with amzm-mvk-tygphhc medication. These were continued. 01/27/2025 GERD without esophagitis (ICD-10 - K21.9) His reflux symptoms have been well-controlled with kroj-vnv-yhzidpq medication. These were continued. 07/02/2024 Former smoker (ICD-10 - Z87.891) He is highly motivated not to smoke. We discussed a plan to prevent relapse in times of stress and illness. 10/28/2024 Mixed hyperlipidemia (ICD-10 - E78.2) The current fasting lipid profile shows his cholesterol to be in the target range. I recommended weight loss and consumption of a healthy diet. We discussed nutrition today. 01/27/2025 Mixed hyperlipidemia (ICD-10 - E78.2) The current fasting lipid profile shows his cholesterol to be in the target range. I recommended weight loss and consumption of a healthy diet. We discussed nutrition today. 07/02/2024 GERD without esophagitis (ICD-10 - K21.9) His reflux symptoms have been well-controlled with nnsy-esa-envikhr medication. These were continued. 10/28/2024 Former smoker (ICD-10 - Z87.891) He is highly motivated not to smoke. We discussed a plan to prevent relapse in times of stress and illness. 01/27/2025 Former smoker (ICD-10 - Z87.891) He is highly motivated not to smoke. We discussed a plan to prevent relapse in times of stress and illness. 07/02/2024 History of umbilical hernia (ICD-10 - Z87.19) He is free of any symptoms at this time. He feels occasional pressure with sustained abdominal contraction but is otherwise free of pain 10/28/2024 BPH (benign prostatic hyperplasia) (ICD-10 - N40.0) He rises from sleep on the average of once a night. We have discussed several lifestyle modifications he could make to avoid nocturia. 01/27/2025 Anxiety (ICD-10 - F41.9) He has been taking his medication. He is beginning to feel better. His issues at work or less pressing now. 07/02/2024 Hiatal hernia (ICD-10 - K44.9) His [...] half of a pound per week. 01/27/2025 Renal cyst, left (ICD-10 - N28.1) [...] to see a prescriber. Plan Of Treatment Pending Test Test Name Order Date PROFILE, FASTING (COMPREHENSIVE METABOLI C) 10/02/2023 PROFILE, FASTING (COMPREHENSIVE METABOLI C) 01/27/2025 PROFILE, FASTING (COMPREHENSIVE METABOLI C) 12/29/2018 PROFILE, FASTING (COMPREHENSIVE METABOLI C) 12/13/2020 PROFILE, FASTING (COMPREHENSIVE METABOLI C) 06/25/2023 PROFILE, FASTING (COMPREHENSIVE METABOLI C) 07/02/2024 PROFILE, FASTING (COMPREHENSIVE METABOLI C) 07/20/2022 PROFILE, FASTING (COMPREHENSIVE METABOLI C) 10/25/2023 PROFILE, FASTING (COMPREHENSIVE METABOLI C) 05/01/2022 PROFILE, RANDOM (COMPREHENSIVE METABOLIC ) 04/22/2020 PROFILE, RANDOM (COMPREHENSIVE METABOLIC ) 02/05/2019 URIC ACID 05/01/2022 LIPID PANEL 05/01/2022 LIPID PANEL 12/29/2018 LIPID PANEL 12/13/2020 FREE T4 (FT4) 05/01/2022 FREE T4 (FT4) 04/22/2020 TSH (THYROID STIMULATING HORMONE) 2021 TSH (THYROID STIMULATING HORMONE) 2019 PSA, TOTAL 10/02/2023 PSA, TOTAL 01/27/2025 PSA, TOTAL 06/25/2023 PSA, TOTAL 07/02/2024 PSA, TOTAL 07/20/2022 PSA, TOTAL 05/01/2022 CBC w DIFF 04/22/2020 CBC w DIFF 02/05/2019 CBC w DIFF 05/01/2022 CBC w DIFF 01/27/2025 CBC w DIFF 12/29/2018 CBC w DIFF 12/13/2020 CBC w DIFF 07/20/2022 SED RATE (ESR) 04/22/2020 SED RATE (ESR) 05/01/2022 LYME DISEASE IgG/IgM WB 02/05/2019 SCREENING COLONOSCOPY 12/29/2018 CBC WITH AUTO DIFF 10/25/2023 CBC WITH AUTO DIFF 10/02/2023 CBC WITH AUTO DIFF 06/25/2023 CBC WITH AUTO DIFF 07/02/2024 Lipid Panel 07/02/2024 Lipid Panel 07/20/2022 Lipid Panel 10/25/2023 Lipid Panel 10/02/2023 Lipid Panel 01/27/2025 Lipid Panel 06/25/2023 Vitamin D 25-OH Total 07/20/2022 Next Appt Details Provider Name:Soto France, 04/28/2025 02:45:00 PM, [address] [place] [address] KEITH ADHIKARI, [place], [address], Provider Name:Soto France, 11/01/2025 03:00:00 PM, [address] [facility] KEITH ADHIKARI, [place], [address], Insurance Providers Payer Name Payer Address Payer Phone Subscriber Number Group Number Insured Name Patient Relationship to Insured Coverage Start Date Coverage End Date MEDICARE NGS [address] [place] [address] [id number] SADI SANCHEZ Self - patient is the insured MEDICA[place] [address] [place] [id number] [phone] [id number] SADI SANCHEZ Self - patient is the [...] thinners or aspirin. Surgical History Surgery Date(Month/Year) No history colonoscopy age 51 umbilical hernia repair 12/11 Hospitalization History Reason Date(Month/Year) No history Memory loss [facility] 10/2020 [facility] few hours 04/2020 allergic reaction 10/2018
--- OUTSIDE RECORDS SUMMARY | 2025-04-23 10:55 | XMS_ITS | Encounter Summary ---
Author Organization [facility] Address [address] [facility] [address] [place] [phone] Phone Care Team Providers Care Urologist Name Role Phone Soto France MD Primary Care Provider [phone] Encounter Details Date Type Department Care Team (Late st Contact Info) Description 10/25/2023 Procedure Pass OR Admitting Dept - Virtual Department [address] [place] [address] Social History Tobacco Use Types Packs/Day Years Used Date Smoking Tobacco: Former Cigarettes 1 979 - 1988 Smokeless Tobacco: Never Alcohol Use Standard Drinks/Week Comments Not Asked 0 (1 standard drink = 0.6 oz pur e alcohol) RARE Education Answer Date Recorded Are you interested in more education? Not on david e 08/28/2023 Are you concerned about learning? Not on file 08/28/2023 No 08/28/2023 No 08/28/2023 Digital Access Answer Date Recorded No 08/28/2023 No 08/28/2023 Reliable internet access at home? Not on file 08/28/2023 Device with a working camera? Not on file Sex and Gender Information Value Date Recorded Sex Assigned at Not on file Legal Sex Male 9:56 AM EST Gender Identity Not on file Sexual Orientation Not on file documented as of this encounter Plan of Treatment Not on file documented as of this encounter Visit Diagnoses Not on filedocumented in this encounter Care Teams Urologist Relationship Specialty Start Date End Date Soto France MD [address] [place] [address] PCP - General Medical Oncology 08/28/23 documented as of this encounter Additional Source Comments The information contained in this document represents components of the legal health record. It is not the complete legal health record.[facility]
--- OUTSIDE RECORDS SUMMARY | 2025-04-23 10:55 | XMS_ITS | Patient Health Record ---
Author Organization [facility] Address [address] [place] [address] Care Team Providers Care Sales Developer Name Role Phone Soto France MD Primary Care Provider Tray Garcia Jr Unavailable Allergies Allergen (clinical drug ingredient) Drug/Non Drug Allergy documented on EMR Reaction Allergy Type Onset Date Status naproxen Naproxen Unknown Drug Allergy Active yellow jackets (uncoded) Unknown Allergy Active Reason For Referral No Information Medications Medication SIG (Take, Route, Frequency, Duration) Notes Start Date End Date Status Omeprazole 20 MG 1 capsule Orally Onc e a day for 30 day(s) Active Colyte with Flavor Packs 240 GM As directed Orally Over the specified time. for 1 day(s) 09/04/2018 Active Simvastatin 20 MG 1 tablet in the even ing Orally Once a day Active Venlafaxine HCl 75 MG 1 tablet with food Orally Once a day for 30 day(s) Active Immunizations Vaccine Route Administration Date Status Comme nts Influenza Unknown 05/03/2018 Administered Social History Tobacco Use: Social History Observation Description Date Details (start date - stop date) Never Smoker NA - NA Tobacco Use/Smoking Question Answer Notes Patient is a nonsmoker Alcohol Screen Question Answer Notes Did you have a drink contain ing alcohol in the past year? Yes How often did you have a dri nk containing alcohol in the past year? Monthly or less (1 point) How many drinks did you have on a typical day when you were drinking in the past year? 1 or 2 drinks (0 point) Points 1 Interpretation Negative Problems Problem Type SNOMED Code ICD Code Onset Dates Problem Status W/U Status Risk Notes Problem 420502722 Colon cancer screening (Z12.11) Active confirmed Problem 49389721 Other hemorrhoids (K64.8) Active confirmed Plan Of Treatment Future Test Test Name Order Date COLONOSCOPY 09/04/2018 Insurance Providers Payer Name Payer Address Payer Phone Subscriber Number Group Number Insured Name Patient Relationship to Insured Coverage Start Date Coverage End Date [facility] [address] [place] [address] [id number] SADI CARMICHAEL Self - patient is the insured Medical (General) History Medical History History ICD Code elevated cholesterol hemorrhoids gastroesophageal reflux disease anxiety Surgical History Surgery Date(Month/Year) umbilical hernia repair
[2025-04-23 11:16] LABS: MANUAL DIFF FLAG NO
[2025-04-23 11:31] LABS: Hematocrit 46.6 % (42.0-52.0); Hemoglobin 15.7 g/dl (14.0-18.0); Imm Gran Abs Auto 0.01 X10*3/uL (0.00-0.03); Imm Gran Pct Auto 0.1 % (0.0-0.4); Lymphocytes Absolute Auto 2.4 X10*3/uL (1.2-4.9); Mean Corpuscular HGB Conc 33.7 g/dl (31.0-36.0); Mean Corpuscular Hemoglobin 29.8 pg (27.0-33.0); Mean Corpuscular Volume 88.4 fL (80.0-98.0); NRBC Abs Auto 0.000 X10*3/uL (0.0-0.012); NRBC Pct Auto 0.0 /100WBC (0.0-0.2); Platelet Count 344 X10*3/uL (160-400); Red Blood Count 5.27 X10*6/uL (4.60-5.80); White Blood Count 7.2 X10*3/uL (4.8-10.8)
[2025-04-23 12:06] LABS: Alanine Aminotransferase 42 U/L (0-40); Albumin Level 4.3 g/dL (3.5-5.0); Alkaline Phosphatase 85 U/L (39-117); Anion Gap 13 (12-20); Aspartate Amino Transferase 38 U/L (5-37); Blood Urea Nitrogen 21 mg/dL (9-16); Calcium 9.5 mg/dL (8.4-10.2); Carbon Dioxide 23 mmol/L (22-29); Chloride 108 mmol/L (96-108); Cholesterol 198 mg/dL (<200); Estimated Glomerular Filt Rate > 60; HDL Cholesterol 39 mg/dL (>40); Potassium 4.1 mmol/L (3.3-5.1); Sodium 140 mmol/L (135-145); Total Protein 6.6 g/dL (6.5-8.0); Triglycerides 144 mg/dL (<150)
[2025-04-23 12:21] LABS: Prostate Specific Antigen 2.55 ng/mL (<0.05-4.0)
== END 2025-04-23 10:52 | disposition home or self-care (01) ==
LOC: HO.LAB 10:51
PROVIDERS: PCP Internal Medicine Medical Oncology; Visit Provider Internal Medicine Medical Oncology
DX: K21.9 Gastro-esophageal reflux disease without esophagitis (principal); N40.0 Benign prostatic hyperplasia without lower urinary tract symptoms; E66.3 Overweight; E78.2 Mixed hyperlipidemia; Z12.5 Encounter for screening for malignant neoplasm of prostate
CPT/HCPCS: 36415; 80053; 80061; 84153; 85025

== ENCOUNTER 2025-04-30 09:20 | Outpatient (REF) | payer MEDICARE, MEDICAID, SELFPAY ==
--- OUTSIDE RECORDS SUMMARY | 2024-10-21 10:09 | XMS_ITS ---
Author Organization Soto France III, MD Address [address] [place] [address] [place] [address] Care Team Providers Care Welder Assembler Name Role Phone Soto France Primary Care Provider REASON FOR VISIT Message Social History Sex Assigned At : Social History Observation Description Sex Assigned At Male Encounters Encounter Location Date Provider Diagnosis Soto France III, MD [address] [place] [address] [place] [address] 10/21/2024 Soto France Plan Of Treatment Next Appt Details Provider Name:Soto France, 05/12/2025 03:30:00 PM, [address] [place] [address] [place], [address], Provider Name:Soto France, 11/01/2025 03:00:00 PM, [address] [place] [address] [place], [address], Progress Notes * SADI SANCHEZDOB: [birth year] (59 yo M)Acc No.[id number]:10/21/2024 Patient: Bhupinder SADI VILLARREAL :1965 A ge:59 Y S ex:Male Address:[address], [place], [address] * true * Date: Generated for Shaan allan/Andreas/Stephon on: 0 04/30/2025 10:10 AM EDT
--- OUTSIDE RECORDS SUMMARY | 2024-10-28 11:00 | XMS_ITS ---
Author Organization Soto France III, MD Address [address] [place] [address] [place] [address] Care Team Providers Care Toll Patrolman Name Role Phone Soto France Primary Care Provider Allergies Allergen (clinical drug ingredient) Drug/Non Drug Allergy documented on EMR Reaction Allergy Type Onset Date Status ibuprofen Ibuprofen Unknown Drug Allergy Active Yellow Jacket Venom Unknown Drug Allergy Active naproxen Naprosyn Unknown Drug Allergy Active Reason For Referral Reason assistance with obta ining new therapist advise of any other programs that may assist patient with his everyday life evaluate and assist patient with his severe depression and anxiety Diagnosis 1 History of depressio n (Z86.59) Diagnosis 2 Persistent depressiv e disorder (F34.1) Diagnosis 3 Anxiety (F41.9) Referral Organization Soto France III, MD Referring Provider First Name Soto Referring Provider Last Name Román Referring Provider Speciality Internal M edicine Referred Organization [facility] Referred Provider Damaris Mo Referred Address [address] [place] [address],[facility], [place],[phone], Referred Provider Specialty Nurse Jones patricia General Arleen Harrison CMA 11/02 10:59:28 AM > REFERRAL/ DEMO/PROGRESS NOTE FAXED TO Bhupinder LAWSON Suzanne CMA 11/10/2024 03:22:20 PM >Regino Mo RN spoke with patient over the phone and there is a note in the record Referral Priority Routine REASON FOR VISIT Annual Exam Medications Medication SIG (Take, Route, Fr equency, Duration) Notes Start Date End Date Status clomiPRAMINE HCl 75 MG 1 capsule at bedt amanda Orally Once a day Active Lisinopril 5 MG TAKE 1 TABLET BY KIARRA TH EVERY DAY Active Omeprazole 20 MG TAKE 1 CAPSULE BY MO UTH EVERY DAY Active Simvastatin 20 MG TAKE 1 TABLET BY KIARRA TH EVERY DAY IN THE EVENING Active Centrum Silver - Orally Act marco a Social History Tobacco Use: Social History Observation Description Date Details (start date - stop date) Former Smoker NA - NA Sex Assigned At : Social History Observation Description Sex Assigned At Male Tobacco Control (Standard) Question Answer Notes Tobacco use: Former smoker How long has it been since you last smoked? Grea ter than 10 years Additional Findings: Tobacco non-user Ex-cigaret te smoker AUDIT-C (Standard) Question Answer Notes Did you have a drink containing alcohol in the p ast year? No Points 0 Interpretation Negative Vital Signs Temperature 97.9 degrees Fahrenheit 10/28/19 25 Blood pressure systolic 112 mm Hg 10/28/19 25 Blood pressure diastolic 80 mm Hg 025 Heart Rate 80 /min 10/28/2024 Height 69 in 10/28/2024 Weight 194 lbs 10/28/2024 BMI 28.65 kg/m2 10/28/2024 Encounters Encounter Location Date Provider Diagnosis Soto France III, MD [address] [place] [address] [place] [address] 10/28/2024 Soto France History of umbilical hernia Z87.19 ; Persistent depressive disorder F34.1 ; Hiatal hernia K44.9 ; GERD without esophagitis K21.9 ; Mixed hyperlipidemia E78.2 ; Former smoker Z87.891 ; BPH (benign prostatic hyperplasia) N40.0 and Overweight E66.3 Assessments Encounter Date Diagnosis (ICD Code) Assessment Notes Treat ment Notes Treatment Clinical Notes 10/28/2024 History of umbilical hernia (ICD-10 - Z87.19) He is free of any symptoms at this time. He feels occasional pressure with sustained abdominal contraction but is otherwise free of pain 10/28/2024 Persistent depressiv e disorder (ICD-10 - F34.1) He was continued on his current antidepressant. Close followup was arranged. There was no indication of self harm or suicidal intent. 10/28/2024 Hiatal hernia (ICD-1 0 - K44.9) His symptoms have been mild and limited to the epigastric area. His nutritional status is good and his weight is stable. 10/28/2024 GERD without esophagitis (ICD-10 - K21.9) His reflux symptoms have been well-controlled with kbsf-pak-uezgyas medication. These were continued. 10/28/2024 Mixed hyperlipidemia (ICD-10 - E78.2) The current fasting lipid profile shows his cholesterol to be in the target range. I recommended weight loss and consumption of a healthy diet. We discussed nutrition today. 10/28/2024 Former smoker (ICD-1 0 - Z87.891) He is highly motivated not to smoke. We discussed a plan to prevent relapse in times of stress and illness. 10/28/2024 BPH (benign prostati c hyperplasia) (ICD-10 - N40.0) He rises from sleep on the average of once a night. We have discussed several lifestyle modifications he could make to avoid nocturia. 10/28/2024 Overweight (ICD-10 - E66.3) He has lost 2 pounds his body mass index is 28. We discussed diet and nutrition and a weight loss strategy. He will try to lose weight at a rate of one half of a pound per week. Plan Of Treatment Medication Medication Name Sig Start Date Stop Date Notes clomiPRAMINE HCl 75 MG 1 capsule at bedt amanda Orally Once a day Lisinopril 5 MG TAKE 1 TABLET BY MOUTH EVERY DAY Omeprazole 20 MG TAKE 1 CAPSULE BY MOUTH EVERY DAY Simvastatin 20 MG TAKE 1 TABLET BY KIARRA TH EVERY DAY IN THE EVENING Centrum Silver - Orally Referrals Referral Date Details 10/28/2024 10/28/2024, owen young with obtaining new therapist advise of any other programs that may assist patient with his everyday life evaluate and assist patient with his severe depression and anxiety, Damaris Mo, [address] [place] [address], [place], [place], [phone], Next Appt Details Follow Up: 3 Months, In thre e months, Reason: ov no tests, Regular check-up Provider Name:Soto France, 05/12/2025 03:30:00 PM, [address] [place] [address] [address], [place], [id number], Provider Name:Soto France, 11/01/2025 03:00:00 PM, [address] [place] [address] [address], [place], [phone], Progress Notes * SADI SANCHEZ RhodaDOB: [birth year] (59 yo M)Acc No.[id number]:10/28/2024 Progress Notes Patient: SADI HALLMAN Provider: Ryan France MD :[id number] A ge:59 Y S ex:Male Date:10/28/2024 Address:[address] [place] [address] ANTHONY CABRERA [id number] Subjective: * Chief Complaints: * A nnual Exam * HPI: D epression Screening: PHQ-9 L ittle interest or pleasure in doing things?Not at all F eeling down, depressed, or hopeless S everal days T rouble falling or staying asleep, or sleeping too much N ot at all F eeling tired or having little energy M ore than half the days P oor appetite or overeating N ot at all F eeling bad about yourself or that you are a failure, or have let yourself or your family down N ot at all T rouble concentrating on things, such as reading the newspaper or watching television M ore than half the days M oving or speaking so slowly that other people could have noticed; or the opposite, being so fidgety or restless that you have been moving around a lot more than usual N ot at all T houghts that you would be better off or of hurting yourself in some way N ot at all T otal Score 5 I nterpretation M ild Depression C OVID-19 Screening: Questions H ave you had any new onset fever, chills, cough, congestion, sore throat, shortness of breath, muscle aches? N o S ROXY Questions: SDOH Questions I n the past year have you been worried about losing your housing? N o I n the past year have you or any family members you live with been unable to get any of the following when it was really needed? Check all that apply: N one F all Risk Screening: Fall History H ave you had any falls with injury in the past year? Y es H ave you had two or more falls in the past year? N o F all Risk Assessment: O ne fall with injury in the past year * : The patient, a 59-year-old male, presented with a complaint of constant tiredness. He also reported issues with his thumbs, describing the sensation as sharp and sometimes burning. The patient has been experiencing this for a couple of years. He also mentioned that he has been taking clomipramine, prescribed by his psychiatrist, Sanna Warren. The patient expressed dissatisfaction with his current mental health care, stating that he finds it difficult to contact his psychiatrist and is required to see a therapist to continue receiving medication. He also mentioned a change in his insurance, which now requires him to pay 20% of his medical costs. Blood Sugar Level is 97.We discussed his psychotherapy at length. He has a psychiatrist who gives him his psychiatric medication. The psychiatrist requires that he see the psychotherapist regularly. The patient wants to stop psychotherapy and have me prescribe his psychiatric medications. 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 I strongly urged him to stay with his current mental health providers and to switch psychotherapist within that system if he wished to do so without a lapse in treatment.He is due for a colonoscopy and we discussed this. He agreed to a referral to his hopper attendant for the procedure. This will be done in the near future. * ROS: G eneral/Constitutional: pain o nly normal aches and pains. C hills d enies.?Fatigue a dmits. F ever d enies. E NT: Decreased hearing d enies. R espiratory: Cough d enies. C ardiovascular: Chest pain with exertion d enies. D yspnea on exertion?denies. S hortness of breath d enies. G astrointestinal: Constipation o ccasional. D ecreased appetite d enies. D iarrhea d enies. H eartburn d enies. N ausea d enies. R ectal bleeding d enies. V omiting d enies. H ematology: bruising d enies. p etechiae d enies. S wollen glands n one have been noted. G enitourinary: Frequent urination o nce a night. M usculoskeletal: Muscle aches d enies. P ainful joints d enies. S ciatica d enies. W eakness d enies. S kin: Itching d enies. R kelly d enies. S kin lesion(s)?denies. N eurologic: Difficulty speaking d enies. D izziness d enies.?Headache d enies. L ow back pain d enies. P sychiatric: Depressed mood w hich is moderate. * Medical History: * Surgical History: u mbilical hernia repair olonoscopy age 51No history * Hospitalization/Major Diagno stic Procedure: a llergic reaction 10/2018[facility] few hours 04/2020Memory loss [facility] 10/2020No history * Family History: F ather: 71 yrs, Cardiac arrest. M other: 68 yrs, Complications of pneumonia. 1 brother(s) - healthy. . He has one brother who is alive and well and one sister who seems healthy. He has no biological children. One of his grandmothers has a history of breast cancer. A grandfather had a history of bone cancer at the age of 90. He is not aware of any family history of substance use disorder or mental illness. * Social History: T obacco Use: T obacco Control (Standard) T obacco use: F ormer smoker H ow long has it been since you last smoked??Greater than 10 years A dditional Findings: Tobacco non-user E x-cigarette smoker D rugs/Alcohol: D rugs H ave you used drugs other than those for medical reasons in the past 12 months? N o D rug/Alcohol: A DUTCH-C (Standard) D id you have a drink containing alcohol in the past year? N o P oints 0 I nterpretation N egative H shalonda has been to Josette for 7 years. She has 4 children. They have been together for 21 years. He is working for [employer] and has no toxic exposures. The patient does not smoke and does not get up at night to urinate much. He works out at the gym and takes a pre-workout supplement. * Medications: T akingLisinopril 5 MG Tablet TAKE 1 TABLET BY [...] reviewed and reconciled with the patient * Allergies: N aprosynIbuprofenYellow Jacket Venomno[Allergies Verified] Objective: * Vitals: H t: 69, Wt: 194, BMI:28.65, BP: 112/80, HR: 80, Temp: 97.9, Wt-k. * P ast Orders: Lab:Complete Blood Count Aut o Diff * Collection Date 10/26/2024 10/17/2023 10/16/2022 Collection Time 11:22 AM 11:18 AM 11:30 AM Order Date 10/26/2024 10/17/2023 10/16/2022 White Blood Count 6.7 (Ref Range: 4.8-10.8 X10*3/uL) 8.7 (Ref Range: 4.8-10.8 X10*3/uL) 8.5 (Ref Range: 4.8-10.8 X10*3/uL) Red Blood Count 5.07 (Ref Range: 4.60-5.80 X10*6/uL) 5.33 (Ref Range: 4.60-5.80 X10*6/uL) 5.56 (Ref Range: 4.60-5.80 X10*6/uL) Hemoglobin 15.3 (Ref Range: 14.0-18.0 g/dl) 16.1 (Ref Range: 14.0-18.0 g/dl) 16.9 (Ref Range: 14.0-18.0 g/dl) Hematocrit 45.2 (Ref Range: 42.0-52.0 %) 47.1 (Ref Range: 42.0-52.0 %) 48.5 (Ref Range: 42.0-52.0 %) Mean Corpuscular Volume 89.2 (Ref Range: 80.0-98.0 fL) 88.4 (Ref Range: 80.0-98.0 fL) 87.2 (Ref Range: 80.0-98.0 fL) Mean Corpuscular Hemoglobin 30.2 (Ref Range: 27.0-33.0 pg) 30.2 (Ref Range: 27.0-33.0 pg) 30.4 (Ref Range: 27.0-33.0 pg) Mean Corpuscular HGB Conc 33.8 (Ref Range: 31.0-36.0 g/dl) 34.2 (Ref Range: 31.0-36.0 g/dl) 34.8 (Ref Range: 31.0-36.0 g/dl) Red Cell Distribution Width 12.7 (Ref Range: 11.0-16.0 %) 12.7 (Ref Range: 11.0-16.0 %) 13.0 (Ref Range: 11.0-16.0 %) Platelet Count 345 (Ref Range: 160-400 X10*3/uL) 382 (Ref Range: 160-400 X10*3/uL) 362 (Ref Range: 160-400 X10*3/uL) Mean Platelet Volume 9.6 (Ref Range: 9.4-12.4 fL) 10.3 (Ref Range: 9.4-12.4 fL) 10.7 (Ref Range: 9.4-12.4 fL) Neutrophils Percent Auto 53.6 (Ref Range: 45-73 %) 57.9 (Ref Range: 45-73 %) 53.2 (Ref Range: 45-73 %) Imm Gran Pct Auto 0.2 (Ref Range: 0.0-0.4 %) 0.2 (Ref Range: 0.0-0.4 %) 0.2 (Ref Range: 0.0-0.4 %) Lymphocytes Percent Auto 34.1 (Ref Range: 20-40 %) 32.3 (Ref Range: 20-40 %) 34.2 (Ref Range: 20-40 %) Monocytes Percent Auto 9.2 (Ref Range: 2-11 %) 7.6 (Ref Range: 2-11 %) 9.1 (Ref Range: 2-11 %) Eosinophils Percent Auto 2.3 (Ref Range: 0-4 %) 1.5 (Ref Range: 0-4 %) 2.8 (Ref Range: 0-4 %) Basophils Percent Auto 0.6 (Ref Range: 0-2 %) 0.5 (Ref Range: 0-2 %) 0.5 (Ref Range: 0-2 %) NRBC Pct Auto 0.0 (Ref Range: 0.0-0.2 /100WBC) 0.0 (Ref Range: 0.0-0.2 /100WBC) 0.0 (Ref Range: 0.0-0.2 /100WBC) Neutrophils Absolute Auto 3.6 (Ref Range: 2.0-8.3 x10*3/uL) 5.1 (Ref Range: 2.0-8.3 x10*3/uL) 4.5 (Ref Range: 2.0-8.3 x10*3/uL) Imm Gran Abs Auto 0.01 (Ref Range: 0.00-0.03 X10*3/uL) 0.02 (Ref Range: 0.00-0.03 X10*3/uL) 0.02 (Ref Range: 0.00-0.03 X10*3/uL) Lymphocytes Absolute Auto 2.3 (Ref Range: 1.2-4.9 X10*3/uL) 2.8 (Ref Range: 1.2-4.9 X10*3/uL) 2.9 (Ref Range: 1.2-4.9 X10*3/uL) Monocytes Absolute Auto 0.6 (Ref Range: 0.1-1.2 X10*3/uL) 0.7 (Ref Range: 0.1-1.2 X10*3/uL) 0.8 (Ref Range: 0.1-1.2 X10*3/uL) Eosinophils Absolute Auto 0.2 (Ref Range: 0.0-0.4 X10*3/uL) 0.1 (Ref Range: 0.0-0.4 X10*3/uL) 0.2 (Ref Range: 0.0-0.4 X10*3/uL) Basophils Absolute Auto 0.0 (Ref Range: 0.0-0.2 X10*3/uL) 0.0 (Ref Range: 0.0-0.2 X10*3/uL) 0.0 (Ref Range: 0.0-0.2 X10*3/uL) NRBC Abs Auto 0.000 (Ref Range: 0.0-0.012 X10*3/uL) 0.000 (Ref Range: 0.0-0.012 X10*3/uL) 0.000 (Ref Range: 0.0-0.012 X10*3/uL) * Lab:Bre donaldson Fast * Collection Date 10/26/2024 10/17/2023 10/16/2022 Collection Time 11:22 AM 11:18 AM 11:30 AM Order Date 10/26/2024 10/17/2023 10/16/2022 Sodium 141 (Ref Range: 135-145 mmol/L) 141 (Ref Range: 135-145 mmol/L) 142 (Ref Range: 135-145 mmol/L) Bilirubin Total 0.5 (Ref Range: 0.0-1.0 mg/dL) 0.7 (Ref Range: 0.0-1.0 mg/dL) 0.8 (Ref Range: 0.0-1.0 mg/dL) Aspartate Amino Transferase 39 H (Ref Range: 5-37 U/L) 38 H (Ref Range: 5-37 U/L) 48 H (Ref Range: 5-37 U/L) Alanine Aminotransferase 39 (Ref Range: 0-40 U/L) 42 H (Ref Range: 0-40 U/L) 69 H (Ref Range: 0-40 U/L) Total Protein 7.0 (Ref Range: 6.5-8.0 g/dL) 7.2 (Ref Range: 6.5-8.0 g/dL) 6.7 (Ref Range: 6.5-8.0 g/dL) Albumin Level 4.1 (Ref Range: 3.5-5.0 g/dL) 4.4 (Ref Range: 3.5-5.0 g/dL) 4.3 (Ref Range: 3.5-5.0 g/dL) Alkaline Phosphatase 81 (Ref Range: 39-117 U/L) 88 (Ref Range: 39-117 U/L) 88 (Ref Range: 39-117 U/L) Potassium 4.1 (Ref Range: 3.3-5.1 mmol/L) 4.7 (Ref Range: 3.3-5.1 mmol/L) 4.2 (Ref Range: 3.3-5.1 mmol/L) Chloride 107 (Ref Range: 96-108 mmol/L) 104 (Ref Range: 96-108 mmol/L) 109 H (Ref Range: 96-108 mmol/L) Carbon Dioxide 25 (Ref Range: 22-29 mmol/L) 31 H (Ref Range: 22-29 mmol/L) 21 L (Ref Range: 22-29 mmol/L) Anion Gap 13 (Ref Range: 12-20) 11 L (Ref Range: 12-20) 16 (Ref Range: 12-20) Blood Urea Nitrogen 28 H (Ref Range: 9-16 mg/dL) 21 H (Ref Range: 9-16 mg/dL) 18 H (Ref Range: 9-16 mg/dL) Creatinine 1.15 (Ref Range: 0.5-1.4 mg/dL) 1.23 (Ref Range: 0.5-1.4 mg/dL) 1.12 (Ref Range: 0.5-1.4 mg/dL) Estimated Glomerular Filt Rate > 60 > 60 > 60 Glucose Fasting 97 (Ref Range: 60-99 mg/dL) 105 H (Ref Range: 60-99 mg/dL) 110 H (Ref Range: 60-99 mg/dL) Calcium 9.5 (Ref Range: 8.4-10.2 mg/dL) 10.0 (Ref Range: 8.4-10.2 mg/dL) 9.6 (Ref Range: 8.4-10.2 mg/dL) * Lab:Lipid Panel * Collection Date 10/26/2024 10/17/2023 10/16/2022 Collection Time 11:22 AM 11:18 AM 11:30 AM Order Date 10/26/2024 10/17/2023 10/16/2022 Triglycerides 132 (Ref Range: <150 mg/dL) 127 (Ref Range: <150 mg/dL) 254 (Ref Range: mg/dL) Cholesterol 188 (Ref Range: <200 mg/dL) 189 (Ref Range: <200 mg/dL) 221 (Ref Range: mg/dL) LDL Cholesterol Calculated 118 H (Ref Range: <100 mg/dL) 122 H (Ref Range: <100 mg/dL) 132 (Ref Range: mg/dl) HDL Cholesterol 44 (Ref Range: >40 mg/dL) 42 (Ref Range: >40 mg/dL) 39 (Ref Range: mg/dL) * Lab:Prostate Specific Antige n * Collection Date 10/26/2024 10/17/2023 10/16/2022 Collection Time 11:22 AM 11:18 AM 11:30 AM Order Date 10/26/2024 10/17/2023 10/16/2022 Prostate Specific Antigen 1.95 (Ref Range: <0.05-4.0 ng/mL) 1.88 (Ref Range: <0.05-4.0 ng/mL) 1.79 (Ref Range: <0.05-4.0 ng/mL) * Examination: G eneral Examination: GENERAL APPEARANCE: p leasant, well nourished, well developed, in no acute distress, calm and relaxed, overweight, man. HEAD: a traumatic, normocephalic. EYES: e tristian, perrla, anicteric, conjugate. EARS: n ormal. NOSE: s eptum intact. ORAL CAVITY: n ormal, unremarkable. NECK/THYROID: n o jugular venous distention, no carotid bruit, thyroid normal. LYMPH NODES: n o enlarged lymph nodes,spleen normal. SKIN: n o suspicious lesions, anicteric. HEART: n o clicks, gallops, murmurs, or rubs, regular rhythm, S1, S2 normal, no s3, or vascular bruits. LUNGS: c lear to auscultation . BREASTS: no masses palpable bilaterally. ABDOMEN: b owel sounds normal, no ascites, no organomegaly, no mass, overweight. RECTAL EXAM: D eferred to his upcoming colonoscopy. MUSCULOSKELETAL: e xtremities unremarkable, no clubbing, cyanosis or edema. PERIPHERAL PULSES: n ormal. NEUROLOGIC: a lert and oriented, cranial nerves 2-12 grossly intact, deep tendon reflexes 2+ symmetrical, motor strength normal upper and lower extremities, sensory exam intact. PSYCH: a lert, oriented. Assessment: * Assessment: 1. P ersistent depressive disorder - F34.1 (Primary) N otes :He was continued on his current antidepressant. Close followup was arranged. There was no indication of self harm or suicidal intent. 2 . H istory of umbilical hernia - Z87.19 N otes :He is free of any symptoms at this time. He feels occasional pressure with sustained abdominal contraction but is otherwise free of pain 3 . H iatal hernia - K44.9 N otes :His symptoms have been mild and limited to the epigastric area. His nutritional status is good and his weight is stable. 4 . G ERD without esophagitis - K21.9 N otes :His reflux symptoms have been well-controlled with qggd-toi-feulmae medication. These were continued. 5 . M ixed hyperlipidemia - E78.2 N otes :The current fasting lipid profile shows his cholesterol to be in the target range. I recommended weight loss and consumption of a healthy diet. We discussed nutrition today. 6 . F ormer smoker - Z87.891 N otes :He is highly motivated not to smoke. We discussed a plan to prevent relapse in times of stress and illness. 7 . B PH (benign prostatic hyperplasia) - N40.0 N otes :He rises from sleep on the average of once a night. We have discussed several lifestyle modifications he could make to avoid nocturia. 8 . O verweight - E66.3 N otes :He has lost 2 pounds his body mass index is 28. We discussed diet and nutrition and a weight loss strategy. He will try to lose weight at a rate of one half of a pound per week. Plan: * Treatment: 2. O thers Continue Lisinopril Tablet, 5 MG, TAKE 1 TABLET BY MOUTH EVERY DAY; C ontinue Omeprazole Capsule Delayed Release, 20 MG, TAKE 1 CAPSULE BY MOUTH EVERY DAY; C ontinue Simvastatin Tablet, 20 MG, TAKE 1 TABLET BY MOUTH EVERY DAY IN THE EVENING; C ontinue Centrum Silver Tablet, -, Orally;?Continue clomiPRAMINE HCl Capsule, 75 MG, 1 capsule at bedtime, Orally, Once a day. ? Referral To:Damaris Mo Nurse Navigation Reason:assistance with obtaining new therapist advise of any other programs that may assist patient with his everyday life evaluate and assist patient with his severe depression and anxiety * Procedure Codes: * Preventive Medicine: Counseling: C are goal follow-up plan: Counseling for abnormal BMI given Y es Above Normal BMI Follow-up D ietary management education, guidance, and counseling, Dietary needs education, Exercise promotion: strength training, Exercise promotion: stretching, Feeding regime, Giving encouragement to exercise, Lifestyle education regarding diet, Nutrition / feeding management, Nutrition therapy, Prescribed activity/exercise education, Prescribed diet education, Prescribed dietary intake, Special diet education, Weight monitoring , Intervention, Order not done: Medical or Other reason not done S moking/Tobacco Use Patient counseled on the dangers of tobacco use and urged to quit. 0 10/28/2024 * Follow Up: 3 Months, In three months (Reason: ov no tests, Regular check-up) * Images: * Sign off status: Completed true * Provider: Ryan France MD Date: 0 10/28/2024 Generated for Shaan allan/Andreas/eTransmitting on: 0 04/30/2025 10:10 AM EDT History and Physical Notes * HPI (History of Present Illness) Category Sub-Category Detail Notes Depression Screening PHQ-9 Little inte rest or pleasure in doing things: Not at all Feeling down, depressed, or hopeless: Se veral days Trouble falling or staying asleep, or sl eeping too much: Not at all Feeling tired or having little energy: M ore than half the days Poor appetite or overeating: Not at all Feeling bad about yourself o r that you are a failure, or have let yourself or your family down: Not at all Trouble concentrating on thi ngs, such as reading the newspaper or watching television: More than half the days Moving or speaking so slowly that other people could have noticed; or the opposite, being so fidgety or restless that you have been moving around a lot more than usual: Not at all Thoughts that you would be b kaylan off or of hurting yourself in some way: Not at all Total Score: 5 Interpretation: Mild Depression Fall Risk Screening Fall History Have you had any falls with injury in the past year?: Yes Have you had two or more falls in the year?: No Fall Risk Assessment:: One fall with inj ury in the past year COVID-19 Screening Questions Have you had any new onset fever, chills, cough, congestion, sore throat, shortness of breath, muscle aches?: No SDOH Questions SDOH Questions In the past year have you been worried about losing your housing?: No In the past year have you or any family members you live with been unable to get any of the following when it was really needed? Check all that apply:: None Examination Category Sub-Category Detail Notes General Examination [...] normal, no s3, or vascular bruits LUNGS: clear to auscultatio n ABDOMEN: bowel sounds normal, no ascites, no organomegaly, no mass, overweight NEUROLOGIC: alert and oriented, cranial nerves 2-12 grossly intact, deep tendon reflexes 2+ symmetrical, motor strength normal upper and lower extremities, sensory exam intact SKIN: no suspicious lesion s, anicteric PERIPHERAL PULSES: normal BREASTS: no masses palpable b ilaterally MUSCULOSKELETAL: extremities unremark able, no clubbing, cyanosis or edema LYMPH NODES: no enlarged lymph no casie,spleen normal RECTAL EXAM: Deferred to his upco qian colonoscopy PSYCH: alert, oriented ORAL CAVITY: normal, unremarkable Consultation Request Notes Referral Date Referring Provider Referred Provider Not alicia 10/28/2024 Soto France Laurie assistance with obtaining new therapist advise of any other programs that may assist patient with his everyday life evaluate and assist patient with his severe depression and anxiety
--- OUTSIDE RECORDS SUMMARY | 2024-11-03 13:09 | XMS_ITS ---
Author Organization Soto France III, MD Address [address] [place] [address] [place] [address] Care Team Providers Care Strategic Alliances Manager Name Role Phone Soto France Primary Care Provider [phone] REASON FOR VISIT FYI only Social History Sex Assigned At : Social History Observation Description Sex Assigned At Male Encounters Encounter Location Date Provider Diagnosis Soto France III, MD [address] [place] [address] [place] [address] 11/03/2024 Soto France Plan Of Treatment Next Appt Details Provider Name:Soto France, 05/12/2025 03:30:00 PM, [address] [place] [address] [place], [address], Provider Name:Soto France, 11/01/2025 03:00:00 PM, [address] [place] [address] [place], [address], Progress Notes * SADI SANCHEZDOB: 4 (59 yo M)Acc No.[id number]:11/03/2024 Patient: Bhupinder SADI VILLARREAL :1965 A ge:59 Y S ex:Male Address:[facility] [address], [place], [place], [address] * true * Date: Generated for Shaan allan/Andreas/Stephon on: 0 04/30/2025 10:11 AM EDT
--- OUTSIDE RECORDS SUMMARY | 2025-01-27 10:45 | XMS_ITS ---
Author Organization Soto France III, MD Address [address] [place] [address] [place] [address] Care Team Providers Care Bingo Checker Name Role Phone Soto France Primary Care Provider [phone] Allergies Allergen (clinical drug ingredient) Drug/Non Drug Allergy documented on EMR Reaction Allergy Type Onset Date Status ibuprofen Ibuprofen Unknown Drug Allergy Active [place]et Venom Unknown Drug Allergy Active naproxen Naprosyn Unknown Drug Allergy Active Reason For Referral Reason bilateral thumb pain Diagnosis 1 Thumb pain, unspecif ied laterality (M79.646) Referral Organization Soto France III, MD Referring Provider First Name Soto Referring Provider Last Name Román Referring Provider Speciality Internal M edicine Referred Provider [facility] Referred Provider Specialty Rheumatology General Notes Arleen Roe CMA 02/01 09:23:58 AM >ref/demo/progress notes [facility]ed to [facility], Arleen Roe CMA 03/11/2025 03:18:19 PM >called [facility] was told pt has appt on 03/26/2025 at 12:15pm Referral Priority Routine Referral Appointment Date 03/26/2025 REASON FOR VISIT pain base of right thumb, GERD, BPH, Obesity Medications Medication SIG (Take, Route, Fr equency, Duration) Notes Start Date End Date Status Centrum Silver - Orally Act marco a clomiPRAMINE HCl 75 MG 1 capsule at bedt amanda Orally Once a day Active Omeprazole 20 MG 1 capsule1 hour befo re morning meal Orally Once a day Active Simvastatin 20 MG 1 tablet Orally in t he evening Active Lisinopril 5 MG 1 tablet Orally Once a day Active Social History Tobacco Use: Social History Observation Description Date Details (start date - stop date) Former Smoker NA - NA Sex Assigned At : Social History Observation Description Sex Assigned At Male Tobacco Control (Standard) Question Answer Notes Tobacco use: Former smoker How long has it been since you last smoked? Grea ter than 10 years Additional Findings: Tobacco non-user Ex-cigaret te smoker Vital Signs Temperature 99.5 degrees Fahrenheit 01/28/20 25 Blood pressure systolic 139 mm Hg 01/28/20 25 Blood pressure diastolic 83 mm Hg 025 Heart Rate 80 /min 01/27/2025 Height 69 in 01/27/2025 Weight 195 lbs 01/27/2025 BMI 28.79 kg/m2 01/27/2025 Encounters Encounter Location Date Provider Diagnosis Soto France III, MD [address] [place] [address] [place] [address] 01/27/2025 Soto France Overweight E66.3 ; History of umbilical hernia Z87.19 ; Hiatal hernia K44.9 ; GERD without esophagitis K21.9 ; Mixed hyperlipidemia E78.2 ; Former smoker Z87.891 ; Anxiety F41.9 ; Renal cyst, left N28.1 and History of depression Z86.59 Assessments Encounter Date Diagnosis (ICD Code) Assessment Notes Treat ment Notes Treatment Clinical Notes 01/27/2025 Overweight (ICD-10 - E66.3) He has lost 2 pounds his body mass index is 28. We discussed diet and nutrition and a weight loss strategy. He will try to lose weight at a rate of one half of a pound per week. 01/27/2025 History of umbilical hernia (ICD-10 - Z87.19) He is free of any symptoms at this time. He feels occasional pressure with sustained abdominal contraction but is otherwise free of pain 01/27/2025 Hiatal hernia (ICD-10 - K44.9) His symptoms have been mild and limited to the epigastric area. His nutritional status is good and his weight is stable. 01/27/2025 GERD without esophagitis (ICD-10 - K21.9) His reflux symptoms have been well-controlled with zmli-oxl-dzcpnsa medication. These were continued. 01/27/2025 Mixed hyperlipidemia (ICD-10 - E78.2) The current fasting lipid profile shows his cholesterol to be in the target range. I recommended weight loss and consumption of a healthy diet. We discussed nutrition today. 01/27/2025 Former smoker (ICD-10 - Z87.891) He is highly motivated not to smoke. We discussed a plan to prevent relapse in times of stress and illness. 01/27/2025 Anxiety (ICD-10 - F41.9) He has been taking his medication. He is beginning to feel better. His issues at work or less pressing now. 01/27/2025 Renal cyst, left (ICD-10 - N28.1) A repeat image of the kidney is due. 01/27/2025 History of depression (ICD-10 - Z86.59) He was instructed to continue to see his therapist weekly and to take his antidepressant medication. He will be seen here frequently and his medications adjusted. It is felt that the therapist can get him to see a prescriber. Plan Of Treatment Medication Medication Name Sig Start Date Stop Date Notes Centrum Silver - Orally clomiPRAMINE HCl 75 MG 1 capsule at bedt amanda Orally Once a day Omeprazole 20 MG 1 capsule1 hour befo re morning meal Orally Once a day Simvastatin 20 MG 1 tablet Orally in the evening Lisinopril 5 MG 1 tablet Orally Once a day Pending Test Test Name Order Date PROFILE, FASTING (COMPREHENSIVE METABOLI C) 01/27/2025 PSA, TOTAL 01/27/2025 CBC w DIFF 01/27/2025 Lipid Panel 01/27/2025 Referrals Referral Date Details 01/27/2025 01/27/2025, oli [facility]al[facility]on thumb pain, [facility] Next Appt Details Follow Up: 3 Months, Reason: ov review labs Provider Name:Soto France, 05/12/2025 03:30:00 PM, [address] [place] [address] KE[address] ADHI[place]ARI, [place], [address], Provider Name:Soto France, 11/01/2025 03:00:00 PM, [address] [place] [address] [place], [address], Progress Notes * SADI SANCHEZ JDOB: [birth year] (59 yo M)Acc No.[id number]:01/27/2025 Progress Notes Patient: SADI HALLMAN Provider: Ryan France MD :1965 A ge:59 Y S ex:Male Date:01/27/2025 Address:[address] [place] [address], [place], [id number] Subjective: * Chief Complaints: * P ain base of right thumbGERDBPHObesity * HPI: C OVID-19 Screening: Stanley mabry returns for ongoing medical management. He rises from sleep occasionally once a night. He has developed some pain at the base of the right and left thumbs with use. There has been no trauma or swelling or erythema. He is able to conduct all of the activities of daily living. Since appears to be inflammatory arthritis. If it does not resolve x-rays will be done. He was willing to see rheumatology. His depression is controlled and eessentially the same. He has had no suicidal thinking. He is trying to lose weight and consume a healthy diet. Questions H ave you had any new onset fever, chills, cough, congestion, sore throat, shortness of breath, muscle aches? N o * ROS: G eneral/Constitutional: pain B ase of both thumbs, otherwise only normal aches and pains. C hills d enies. F atigue a dmits. F ever d enies. E NT: Decreased hearing d enies. R espiratory: Cough d enies. C ardiovascular: Chest pain with exertion d enies. D yspnea on exertion?denies. S hortness of breath d enies. G astrointestinal: Constipation d enies. D ecreased appetite d enies.?Diarrhea d enies. H eartburn c ontrolled with medications. N ausea d enies.?Rectal bleeding d enies. V omiting d enies. H ematology: bruising d enies. p etechiae d enies. S wollen glands n one have been noted. G enitourinary: Frequent urination d enies. M usculoskeletal: Muscle aches d enies. P ainful joints B oth thumbs that is moderate. S ciatica d enies. W eakness d [...] Hospitalization/Major Diagno stic Procedure: a llergic reaction 10/2018[facility] few hours 04/2020Memory loss [facility] 10/2020No history * Family History: F [...] dditional Findings: Tobacco non-user E x-cigarette smoker Stnaley mabry has been to Josette for 7 years. She has 4 children. They have been together for 21 years. He is working for [employer] and has no toxic exposures. The patient does not smoke and does not get up at night to urinate much. He works out at the gym and takes a pre-workout supplement. * Medications: T akingCentrum Silver - Tablet Orally clomiPRAMINE HCl 75 MG Capsule 1 capsule at bedtime Orally Once a day Simvastatin 20 MG Tablet 1 tablet Orally in the evening Lisinopril 5 MG Tablet 1 tablet Orally Once a day Omeprazole 20 MG Capsule Delayed Release 1 capsule1 hour before morning meal Orally Once a day Medication List reviewed and reconciled with the patientTaking Centrum Silver - Tablet Orally Taking clomiPRAMINE HCl 75 MG Capsule 1 capsule at bedtime Orally Once a day Taking Simvastatin 20 MG Tablet 1 tablet Orally in the evening Taking Lisinopril 5 MG Tablet 1 tablet Orally Once a day Taking Omeprazole 20 MG Capsule Delayed Release 1 capsule1 hour before morning meal Orally Once a day Medication List reviewed and reconciled with the patient * Allergies: N aprosynIbuprofenYellow Will Lam[Allergies Verified] Objective: * Vitals: H t: 69, Wt: 195, BMI:28.79, BP: 139/83, HR: 80, Temp: 99.5, Wt-k.45. * Examination: G eneral Examination: GENERAL APPEARANCE: [...] no organomegaly, no mass, overweight. RECTAL EXAM: n ot examined. MUSCULOSKELETAL: e xtremities unremarkable, no clubbing, cyanosis or edema. PERIPHERAL PULSES: n ormal. NEUROLOGIC: a lert and oriented, cranial nerves 2-12 grossly intact, deep tendon reflexes 2+ symmetrical, motor strength normal upper and lower extremities, sensory exam intact. PSYCH: a lert, oriented, anxious appearing, mood depressed.? Assessment: * Assessment: 1. O verweight - E66.3 (Primary) N otes :He has lost 2 pounds his body mass index is 28. We discussed diet and nutrition and a weight loss strategy. He will try to lose weight at a rate of one half of a pound per week. 2 . H istory of umbilical hernia [...] :His reflux symptoms have been well-controlled with bnbn-anb-vggtzus medication. These were continued. 5 . M [...] times of stress and illness. 7 . A nxiety - F41.9 N otes :He has been taking his medication. He is beginning to feel better. His issues at work or less pressing now. 8 . R enal cyst, left - N28.1 N otes :A repeat image of the kidney is due. 9 . H istory of depression - Z86.59 N otes :He was instructed to continue to see his therapist weekly and to take his antidepressant medication. He will be seen here frequently and his medications adjusted. It is felt that the therapist can get him to see a prescriber. Plan: * Treatment: 2. G ERD without esophagitis L AB: PROFILE, FASTING (COMPREHENSIVE METABOLIC) L AB: PSA, TOTAL L AB: CBC w DIFF L AB: Lipid Panel 3. M ixed hyperlipidemia L AB: PROFILE, FASTING (COMPREHENSIVE METABOLIC) L AB: PSA, TOTAL L AB: CBC w DIFF L AB: Lipid Panel 4. O thers Continue Omeprazole Capsule Delayed Release, 20 MG, 1 capsule1 hour before morning meal, Orally, Once a day; C ontinue Lisinopril Tablet, 5 MG, 1 tablet, Orally, Once a day; C ontinue Simvastatin Tablet, 20 MG, 1 tablet, Orally, in the evening; C ontinue Centrum Silver Tablet, -, Orally; C ontinue clomiPRAMINE HCl Capsule, 75 MG, 1 capsule at bedtime, Orally, Once a day. ? Referral To:[facility] Rheumatology Reason:bilateral thumb pain * Procedure Codes: * Preventive Medicine: Counseling: [...] tobacco use and urged to quit. 0 01/27/2025 * Follow Up: 3 Months (Reason: ov review labs) * Images: * Sign off status: Completed true * Provider: Ryan France MD Date: 0 01/27/2025 Generated for Shaan allan/Andreas/eTmarkosmitting on: 0 04/30/2025 10:11 AM EDT History and Physical Notes * HPI (History of Present Illness) Category Sub-Category Detail Notes COVID-19 Screening Questions Have you had any new onset fever, chills, cough, congestion, sore throat, shortness of breath, muscle aches?: No Examination Category Sub-Category Detail Notes General [...] normal RECTAL EXAM: not examined PSYCH: alert, oriented, anx ious appearing, mood depressed ORAL CAVITY: normal, unremarkable Consultation Request Notes Referral Date Referring Provider Referred Provider Not es 01/27/2025 Soto France [facility] bilateral thumb pain
--- OUTSIDE RECORDS SUMMARY | 2025-04-28 10:45 | XMS_ITS ---
Author Organization Soto France III, MD Address [address] [place] [address] [place] [address] Care Team Providers Care Director [place] Name Role Phone Soto France Primary Care Provider Allergies Allergen (clinical drug ingredient) Drug/Non Drug Allergy documented on EMR Reaction Allergy Type Onset Date Status ibuprofen Ibuprofen Unknown Drug Allergy Active Yellow Jacket Venom Unknown Drug Allergy Active naproxen Naprosyn Unknown Drug Allergy Active Reason For Referral Reason Evaluate and Treat Needs Sleep Study Diagnosis 1 Chronic fatigue, uns pecified (R53.82) Diagnosis 2 Daytime somnolence ( R40.0) Referral Organization Soto France III, MD Referring Provider First Name Soto Referring Provider Last Name Román Referring Provider Speciality Internal M edicine Referred Provider [facility] er, Pulmonology Referred Provider Specialty Pulmonary [place] hess Referral Priority Routine REASON FOR VISIT Chronic fatigue, Depression, Bereavement, Benign prostatic hypertrophy, Obesity, Anxiety, Hyperlipidemia, GERD Medications Medication SIG (Take, Route, Fr equency, Duration) Notes Start Date End Date Status Centrum Silver - Orally Act marco a Simvastatin 20 MG 1 tablet Orally in t he evening Active Lisinopril 5 MG 1 tablet Orally Once a day Active Omeprazole 20 MG 1 capsule1 hour befo re morning meal Orally Once a day Active clomiPRAMINE HCl 75 MG 1 capsule at bedt amanda Orally Once a day Active Social History Tobacco Use: Social History Observation Description Date Details (start date - stop date) Former Smoker NA - NA Sex Assigned At : Social History Observation Description Sex Assigned At Male Tobacco Control (Standard) Question Answer Notes Tobacco use: Former smoker How long has it been since you last smoked? Malik ter than 10 years Additional Findings: Tobacco non-user Ex-cigaret te smoker Vital Signs Temperature 98.5 degrees Fahrenheit 04/28/20 25 Blood pressure systolic 134 mm Hg 04/28/20 25 Blood pressure diastolic 79 mm Hg 025 Heart Rate 96 /min 04/28/2025 Respiratory Rate 15 /min 04/28/2025 Height 69 in 04/28/2025 Weight 198 lbs 04/28/2025 BMI 29.24 kg/m2 04/28/2025 Oximetry 98 % 04/28/2025 Encounters Encounter Location Date Provider Diagnosis Soto France III, MD [address] [place] [address] [place] [address] 04/28/2025 Soto France Chronic fatigue, unspecified R53.82 ; Erectile dysfunction N52.9 ; Former smoker Z87.891 ; Overweight E66.3 ; History of umbilical hernia Z87.19 ; Hiatal hernia K44.9 ; GERD without esophagitis K21.9 ; Mixed hyperlipidemia E78.2 ; Persistent depressive disorder F34.1 and Basal cell carcinoma C44.91 Assessments Encounter Date Diagnosis (ICD Code) Assessment Notes Treat ment Notes Treatment Clinical Notes 04/28/2025 Chronic fatigue, unspecified (ICD-10 - R53.82) Evaluation of the phalanx of increased fatigue and lower extremity heaviness will be undertaken he will have thyroid function test and a morning testosterone. If necessary he will have a cortisol stimulation test. It may be that he is simply bereaved and depressed and experiencing loss. 04/28/2025 Erectile dysfunction (ICD-10 - N52.9) This problem has been treated with medication. 04/28/2025 Former smoker (ICD-1 0 - Z87.891) He is highly motivated not to smoke. We discussed a plan to prevent relapse in times of stress and illness. 04/28/2025 Overweight (ICD-10 - E66.3) He has gained 30 pounds his body mass index is 29. We discussed diet and nutrition and a weight loss strategy. He will try to lose weight at a rate of one half of a pound per week. 04/28/2025 History of umbilical hernia (ICD-10 - Z87.19) He is free of any symptoms at this time. He feels occasional pressure with sustained abdominal contraction but is otherwise free of pain 04/28/2025 Hiatal hernia (ICD-1 0 - K44.9) His symptoms have been mild and limited to the epigastric area. His nutritional status is good and his weight is stable. 04/28/2025 GERD without esophagitis (ICD-10 - K21.9) His reflux symptoms have been well-controlled with ynbr-iyt-voifddl medication. These were continued. 04/28/2025 Mixed hyperlipidemia (ICD-10 - E78.2) The current fasting lipid profile shows his cholesterol to be in the target range. I recommended weight loss and consumption of a healthy diet. We discussed nutrition today. 04/28/2025 Persistent depressiv e disorder (ICD-10 - F34.1) He was continued on his current antidepressant. Close followup was arranged. There was no indication of self harm or suicidal intent. 04/28/2025 Basal cell carcinoma (ICD-10 - C44.91) The lesion was excised from the right side of his head this morning. We will await the pathology and the margins report. Plan Of Treatment Medication Medication Name Sig Start Date Stop Date Notes Centrum Silver - Orally Simvastatin 20 MG 1 tablet Orally in the evening Lisinopril 5 MG 1 tablet Orally Once a day Omeprazole 20 MG 1 capsule1 hour befo re morning meal Orally Once a day clomiPRAMINE HCl 75 MG 1 capsule at bedt amanda Orally Once a day Pending Test Test Name Order Date LDH 04/28/2025 TSH (THYROID STIMULATING HORMONE) 2024 BRAIN NATRIURETIC PEPTIDE (BNP) 04/28/20 Creatine Kinase Total 04/28/2025 Vitamin B12 and Folate 04/28/2025 Free T4 (Free Thyroxine) 04/28/2025 Testosterone, Total 04/28/2025 Referrals Referral Date Details 04/28/2025 04/28/2025, Evaluate and Treat Needs Sleep Study, Pulmonology [facility] Next Appt Details Follow Up: 2 Weeks, Reason: OV Provider Name:Soto France 05/12/2025 03:30:00 PM, [address] [facility] [address], [place], [address], Provider Name:Soto France, 11/01/2025 03:00:00 PM, [address] [facility] [address], [place], [address], Progress Notes * SADI SANCHEZDOB: 4 (60 yo M)Acc No.[id number]:04/28/2025 Progress Notes Patient: SADI HALLMAN Provider: Ryan France MD :1965 A ge:60 Y S ex:Male Date:04/28/2025 Address:[address] [place], [place] [id number] Subjective: * Chief Complaints: * C hronic fatigueDepressionBereavementBenign prostatic hypertrophyObesityAnxietyHyperlipidemiaGERD * HPI: C OVID-19 Screening: He returns for a scheduled visit. He complains of chronic fatigue. He says recently he has a sensation that his legs are feeling very heavy and he is tired with minimal exertion. There is no peripheral edema. He has gained 3 pounds. His brother last week after pneumonia from aspiration from weakness. He is concerned about his own health. The umbilical hernia is asymptomatic. His esophageal reflux symptoms and hiatal hernia symptoms are unchanged and controlled. His cognitive status is at baseline. He has been compliant with his medications. He is not taking any new medications.Comprehensive blood work is available and was reviewed with him. Additional blood work was ordered today. Questions H ave you had any new onset fever, chills, cough, congestion, sore throat, shortness of breath, muscle aches? N o * ROS: G eneral/Constitutional: pain o nly [...] enies. D iarrhea d enies. H eartburn c ontrolled with medications. N ausea d enies. R ectal bleeding d enies. V omiting d enies. H ematology: bruising d enies. p etechiae d enies. S wollen glands n one have been noted. G enitourinary: Frequent urination o nce a night. M usculoskeletal: Muscle aches d enies. P ainful joints d enies. S ciatica d enies. W eakness L ower extremities. S kin: Itching d enies. R kelly d enies. S kin lesion(s)?denies. N eurologic: Difficulty speaking d enies. D izziness d enies.?Headache d enies. L ow back pain d enies. P sychiatric: Depressed mood w hich is moderate. * Medical History: * Surgical History: u mbilical hernia repair olonoscopy age 51No history * Hospitalization/Major Diagno stic Procedure: a llergic reaction 10/2018[facility] few hours 04/2020Memory loss [facility] 10/2020No history * Family History: F [...] dditional Findings: Tobacco non-user E x-cigarette smoker Stanley liz has been to Josette for 7 years. She has 4 children. They have been together for 21 years. He is working for [employer] and has no toxic exposures. The patient does not smoke and does not get up at night to urinate much. He works out at the gym and takes a pre-workout supplement. * Medications: T akingOmeprazole 20 MG Capsule Delayed Release 1 capsule1 hour before morning meal Orally Once a day Lisinopril 5 MG Tablet 1 tablet Orally Once a day Simvastatin 20 MG Tablet 1 tablet Orally in the evening Centrum Silver - Tablet Orally clomiPRAMINE HCl 75 MG Capsule 1 capsule at bedtime Orally Once a day Medication List reviewed and reconciled with the patientTaking Omeprazole 20 MG Capsule Delayed Release 1 capsule1 hour before morning meal Orally Once a day Taking Lisinopril 5 MG Tablet 1 tablet Orally Once a day Taking Simvastatin 20 MG Tablet 1 tablet Orally in the evening Taking Centrum Silver - Tablet Orally Taking clomiPRAMINE HCl 75 MG Capsule 1 capsule at bedtime Orally Once a day Medication List reviewed and reconciled with the patient * Allergies: N aprosynIbuprofenYellow Jacket Venomno[Allergies Verified] Objective: * Vitals: H t: 69, Wt: 198, BMI:29.24, BP: 134/79, HR: 96, RR: 15, Temp: 98.5, Oxygen sat %: 98, Wt-k.81. * P ast Orders: Lab:Complete Blood Count Aut o Diff * Collection Date 04/23/2025 10/26/2024 10/17/2023 Collection Time 11:14 AM 11:22 AM 11:18 AM Order Date 04/23/2025 10/26/2024 10/17/2023 White Blood Count 7.2 (Ref Range: 4.8-10.8 X10*3/uL) 6.7 (Ref Range: 4.8-10.8 X10*3/uL) 8.7 (Ref Range: 4.8-10.8 X10*3/uL) Red Blood Count 5.27 (Ref Range: 4.60-5.80 X10*6/uL) 5.07 (Ref Range: 4.60-5.80 X10*6/uL) 5.33 (Ref Range: 4.60-5.80 X10*6/uL) Hemoglobin 15.7 (Ref Range: 14.0-18.0 g/dl) 15.3 (Ref Range: 14.0-18.0 g/dl) 16.1 (Ref Range: 14.0-18.0 g/dl) Hematocrit 46.6 (Ref Range: 42.0-52.0 %) 45.2 (Ref Range: 42.0-52.0 %) 47.1 (Ref Range: 42.0-52.0 %) Mean Corpuscular Volume 88.4 (Ref Range: 80.0-98.0 fL) 89.2 (Ref Range: 80.0-98.0 fL) 88.4 (Ref Range: 80.0-98.0 fL) Mean Corpuscular Hemoglobin 29.8 (Ref Range: 27.0-33.0 pg) 30.2 (Ref Range: 27.0-33.0 pg) 30.2 (Ref Range: 27.0-33.0 pg) Mean Corpuscular HGB Conc 33.7 (Ref Range: 31.0-36.0 g/dl) 33.8 (Ref Range: 31.0-36.0 g/dl) 34.2 (Ref Range: 31.0-36.0 g/dl) Red Cell Distribution Width 12.5 (Ref Range: 11.0-16.0 %) 12.7 (Ref Range: 11.0-16.0 %) 12.7 (Ref Range: 11.0-16.0 %) Platelet Count 344 (Ref Range: 160-400 X10*3/uL) 345 (Ref Range: 160-400 X10*3/uL) 382 (Ref Range: 160-400 X10*3/uL) Mean Platelet Volume 9.6 (Ref Range: 9.4-12.4 fL) 9.6 (Ref Range: 9.4-12.4 fL) 10.3 (Ref Range: 9.4-12.4 fL) Neutrophils Percent Auto 55.9 (Ref Range: 45-73 %) 53.6 (Ref Range: 45-73 %) 57.9 (Ref Range: 45-73 %) Imm Gran Pct Auto 0.1 (Ref Range: 0.0-0.4 %) 0.2 (Ref Range: 0.0-0.4 %) 0.2 (Ref Range: 0.0-0.4 %) Lymphocytes Percent Auto 33.4 (Ref Range: 20-40 %) 34.1 (Ref Range: 20-40 %) 32.3 (Ref Range: 20-40 %) Monocytes Percent Auto 8.0 (Ref Range: 2-11 %) 9.2 (Ref Range: 2-11 %) 7.6 (Ref Range: 2-11 %) Eosinophils Percent Auto 2.2 (Ref Range: 0-4 %) 2.3 (Ref Range: 0-4 %) 1.5 (Ref Range: 0-4 %) Basophils Percent Auto 0.4 (Ref Range: 0-2 %) 0.6 (Ref Range: 0-2 %) 0.5 (Ref Range: 0-2 %) NRBC Pct Auto 0.0 (Ref Range: 0.0-0.2 /100WBC) 0.0 (Ref Range: 0.0-0.2 /100WBC) 0.0 (Ref Range: 0.0-0.2 /100WBC) Neutrophils Absolute Auto 4.0 (Ref Range: 2.0-8.3 x10*3/uL) 3.6 (Ref Range: 2.0-8.3 x10*3/uL) 5.1 (Ref Range: 2.0-8.3 x10*3/uL) Imm Gran Abs Auto 0.01 (Ref Range: 0.00-0.03 X10*3/uL) 0.01 (Ref Range: 0.00-0.03 X10*3/uL) 0.02 (Ref Range: 0.00-0.03 X10*3/uL) Lymphocytes Absolute Auto 2.4 (Ref Range: 1.2-4.9 X10*3/uL) 2.3 (Ref Range: 1.2-4.9 X10*3/uL) 2.8 (Ref Range: 1.2-4.9 X10*3/uL) Monocytes Absolute Auto 0.6 (Ref Range: 0.1-1.2 X10*3/uL) 0.6 (Ref Range: 0.1-1.2 X10*3/uL) 0.7 (Ref Range: 0.1-1.2 X10*3/uL) Eosinophils Absolute Auto 0.2 (Ref Range: 0.0-0.4 X10*3/uL) 0.2 (Ref Range: 0.0-0.4 X10*3/uL) 0.1 (Ref Range: 0.0-0.4 X10*3/uL) Basophils Absolute Auto 0.0 (Ref Range: 0.0-0.2 X10*3/uL) 0.0 (Ref Range: 0.0-0.2 X10*3/uL) 0.0 (Ref Range: 0.0-0.2 X10*3/uL) NRBC Abs Auto 0.000 (Ref Range: 0.0-0.012 X10*3/uL) 0.000 (Ref Range: 0.0-0.012 X10*3/uL) 0.000 (Ref Range: 0.0-0.012 X10*3/uL) * Lab:Bre Bhatt. Marcia l Fast * Collection Date 04/23/2025 10/26/2024 10/17/2023 Collection Time 11:14 AM 11:22 AM 11:18 AM Order Date 04/23/2025 10/26/2024 10/17/2023 Sodium 140 (Ref Range: 135-145 mmol/L) 141 (Ref Range: 135-145 mmol/L) 141 (Ref Range: 135-145 mmol/L) Bilirubin Total 0.6 (Ref Range: 0.0-1.0 mg/dL) 0.5 (Ref Range: 0.0-1.0 mg/dL) 0.7 (Ref Range: 0.0-1.0 mg/dL) Aspartate Amino Transferase 38 H (Ref Range: 5-37 U/L) 39 H (Ref Range: 5-37 U/L) 38 H (Ref Range: 5-37 U/L) Alanine Aminotransferase 42 H (Ref Range: 0-40 U/L) 39 (Ref Range: 0-40 U/L) 42 H (Ref Range: 0-40 U/L) Total Protein 6.6 (Ref Range: 6.5-8.0 g/dL) 7.0 (Ref Range: 6.5-8.0 g/dL) 7.2 (Ref Range: 6.5-8.0 g/dL) Albumin Level 4.3 (Ref Range: 3.5-5.0 g/dL) 4.1 (Ref Range: 3.5-5.0 g/dL) 4.4 (Ref Range: 3.5-5.0 g/dL) Alkaline Phosphatase 85 (Ref Range: 39-117 U/L) 81 (Ref Range: 39-117 U/L) 88 (Ref Range: 39-117 U/L) Potassium 4.1 (Ref Range: 3.3-5.1 mmol/L) 4.1 (Ref Range: 3.3-5.1 mmol/L) 4.7 (Ref Range: 3.3-5.1 mmol/L) Chloride 108 (Ref Range: 96-108 mmol/L) 107 (Ref Range: 96-108 mmol/L) 104 (Ref Range: 96-108 mmol/L) Carbon Dioxide 23 (Ref Range: 22-29 mmol/L) 25 (Ref Range: 22-29 mmol/L) 31 H (Ref Range: 22-29 mmol/L) Anion Gap 13 (Ref Range: 12-20) 13 (Ref Range: 12-20) 11 L (Ref Range: 12-20) Blood Urea Nitrogen 21 H (Ref Range: 9-16 mg/dL) 28 H (Ref Range: 9-16 mg/dL) 21 H (Ref Range: 9-16 mg/dL) Creatinine 1.20 (Ref Range: 0.5-1.4 mg/dL) 1.15 (Ref Range: 0.5-1.4 mg/dL) 1.23 (Ref Range: 0.5-1.4 mg/dL) Estimated Glomerular Filt Rate > 60 > 60 > 60 Glucose Fasting 106 H (Ref Range: 60-99 mg/dL) 97 (Ref Range: 60-99 mg/dL) 105 H (Ref Range: 60-99 mg/dL) Calcium 9.5 (Ref Range: 8.4-10.2 mg/dL) 9.5 (Ref Range: 8.4-10.2 mg/dL) 10.0 (Ref Range: 8.4-10.2 mg/dL) * Lab:Lipid Panel * Collection Date 04/23/2025 10/26/2024 10/17/2023 Collection Time 11:14 AM 11:22 AM 11:18 AM Order Date 04/23/2025 10/26/2024 10/17/2023 Triglycerides 144 (Ref Range: <150 mg/dL) 132 (Ref Range: <150 mg/dL) 127 (Ref Range: <150 mg/dL) Cholesterol 198 (Ref Range: <200 mg/dL) 188 (Ref Range: <200 mg/dL) 189 (Ref Range: <200 mg/dL) LDL Cholesterol Calculated 131 H (Ref Range: <100 mg/dL) 118 H (Ref Range: <100 mg/dL) 122 H (Ref Range: <100 mg/dL) HDL Cholesterol 39 L (Ref Range: >40 mg/dL) 44 (Ref Range: >40 mg/dL) 42 (Ref Range: >40 mg/dL) * Lab:Prostate Specific Antige n * Collection Date 04/23/2025 10/26/2024 10/17/2023 Collection Time 11:14 AM 11:22 AM 11:18 AM Order Date 04/23/2025 10/26/2024 10/17/2023 Prostate Specific Antigen 2.55 (Ref Range: <0.05-4.0 ng/mL) 1.95 (Ref Range: <0.05-4.0 ng/mL) 1.88 (Ref Range: <0.05-4.0 ng/mL) * Examination: G eneral Examination: GENERAL APPEARANCE: p leasant, well nourished, well developed, in no acute distress, calm and relaxed: overweight: man. HEAD: a traumatic, normocephalic. EYES: e [...] normal, no s3, or vascular bruits. LUNGS: : diminished breath sounds throughout: no wheezes, rales, rhonchi: good air movement. BREASTS: no masses palpable bilaterally. ABDOMEN: b owel sounds normal, no ascites, no organomegaly, no mass: overweight, Unremarkable asymptomatic umbilical hernia. RECTAL EXAM: n ot examined. MUSCULOSKELETAL: e xtremities unremarkable, no clubbing, cyanosis or edema, Knees and ankles normal, no peripheral edema, feet warm and dry and pink. PERIPHERAL PULSES: n ormal. NEUROLOGIC: a lert and oriented, cranial nerves 2-12 grossly intact, deep tendon reflexes 2+ symmetrical, motor strength normal upper and lower extremities, sensory exam intact. PSYCH: a lert, oriented: anxious appearing: mood depressed, Sad. Assessment: * Assessment: 1. C hronic fatigue, unspecified - R53.82 (Primary) N otes :Evaluation of the phalanx of increased fatigue and lower extremity heaviness will be undertaken he will have thyroid function test and a morning testosterone. If necessary he will have a cortisol stimulation test. It may be that he is simply bereaved and depressed and experiencing loss. 2 . E rectile dysfunction - N52.9 N otes :This problem has been treated with medication. 3 . F ormer smoker - Z87.891 N otes :He is highly motivated not to smoke. We discussed a plan to prevent relapse in times of stress and illness. 4 . O verweight - E66.3 N otes :He has gained 30 pounds his body mass index is 29. We discussed diet and nutrition and a weight loss strategy. He will try to lose weight at a rate of one half of a pound per week. 5 . H istory of umbilical hernia - Z87.19 N otes :He is free of any symptoms at this time. He feels occasional pressure with sustained abdominal contraction but is otherwise free of pain 6 . H iatal hernia - K44.9 N otes :His symptoms have been mild and limited to the epigastric area. His nutritional status is good and his weight is stable. 7 . G ERD without esophagitis - K21.9 N otes :His reflux symptoms have been well-controlled with ditc-fir-xlofach medication. These were continued. 8 . M ixed hyperlipidemia - E78.2 N otes :The current fasting lipid profile shows his cholesterol to be in the target range. I recommended weight loss and consumption of a healthy diet. We discussed nutrition today. 9 . P ersistent depressive disorder - F34.1 N otes :He was continued on his current antidepressant. Close followup was arranged. There was no indication of self harm or suicidal intent. 1 0. B anh cell carcinoma - C44.91 N otes :The lesion was excised from the right side of his head this morning. We will await the pathology and the margins report. Plan: * Treatment: 2. E rectile dysfunction L AB: LDH L AB: TSH (THYROID STIMULATING HORMONE) L AB: BRAIN NATRIURETIC PEPTIDE (BNP) L AB: Creatine Kinase Total L AB: Vitamin B12 and Folate L AB: Free T4 (Free Thyroxine) L AB: Testosterone, Total 3. O verweight L AB: LDH L AB: TSH (THYROID STIMULATING HORMONE) L AB: BRAIN NATRIURETIC PEPTIDE (BNP) L AB: Creatine Kinase Total L AB: Vitamin B12 and Folate L AB: Free T4 (Free Thyroxine) L AB: Testosterone, Total 4. M ixed hyperlipidemia L AB: LDH L AB: TSH (THYROID STIMULATING HORMONE) L AB: BRAIN NATRIURETIC PEPTIDE (BNP) L AB: Creatine Kinase Total L AB: Vitamin B12 and Folate L AB: Free T4 (Free Thyroxine) L AB: Testosterone, Total 5. P ersistent depressive disorder L AB: LDH L AB: TSH (THYROID STIMULATING HORMONE) L AB: BRAIN NATRIURETIC PEPTIDE (BNP) L AB: Creatine Kinase Total L AB: Vitamin B12 and Folate L AB: Free T4 (Free Thyroxine) L AB: Testosterone, Total 6. O thers Continue Omeprazole Capsule Delayed Release, [...] bedtime, Orally, Once a day. ? Referral To:Pulmonology [facility] Pulmonary Diseases Reason:Evaluate and Treat Needs Sleep Study * Procedure Codes: 9 4760 MEASURE BLOOD OXYGEN LEVEL * Preventive Medicine: Counseling: C are goal [...] or Other reason not done * Follow Up: 2 Weeks (Reason: OV) * Images: * Sign off status: Completed true * Provider: Ryan France MD Date: 0 04/28/2025 Generated for Shaan allan/Andreas/Stephon on: 04/30/2025 10:11 AM EDT History and Physical Notes * HPI (History of Present Illness) Category Sub-Category Detail Notes COVID-19 Screening Questions Have you had any new onset fever, chills, cough, congestion, sore throat, shortness of breath, muscle aches?: No Examination Category Sub-Category Detail Notes General Examination GENERAL APPEARANCE: pleasant , well nourished, well developed, in no acute distress, calm and relaxed: overweight: man HEAD: atraumatic, normocep halic EYES: eomi, perrla, anicte jannet, conjugate EARS: normal NOSE: septum intact NECK/THYROID: no jugular venous di stention, no carotid bruit, thyroid normal HEART: no clicks, gallops, murmurs, or rubs, regular rhythm, S1, S2 normal, no s3, or vascular bruits LUNGS: : diminished breath sounds throughout: no wheezes, rales, rhonchi: good air movement ABDOMEN: bowel sounds normal, no ascites, no organomegaly, no mass: overweight, Unremarkable asymptomatic umbilical hernia NEUROLOGIC: alert and oriented, cranial nerves 2-12 grossly intact, deep tendon reflexes 2+ symmetrical, motor strength normal upper and lower extremities, sensory exam intact SKIN: no suspicious lesion s, anicteric PERIPHERAL PULSES: normal BREASTS: no masses palpable b ilaterally MUSCULOSKELETAL: extremities unremark able, no clubbing, cyanosis or edema, Knees and ankles normal, no peripheral edema, feet warm and dry and pink LYMPH NODES: no enlarged lymph no casie,spleen normal RECTAL EXAM: not examined PSYCH: alert, oriented: anx ious appearing: mood depressed, Sad ORAL CAVITY: normal, unremarkable Consultation Request Notes Referral Date Referring Provider Referred Provider Not alicia 04/28/2025 Román [facility], Pulmonology Evaluate and Treat Needs Sleep Study
--- OUTSIDE RECORDS SUMMARY | 2025-04-30 10:11 | XMS_ITS | Patient Health Record ---
Author Organization [facility] Address [address] [place] [id number] Care Team Providers Care Client Relations Associate Name Role Phone Soto France MD Primary [...] Problem Status W/U Status Risk Notes Problem [id number] Colon cancer screening (Z12.11) Active confirmed Problem [id number] Other hemorrhoids (K64.8) Active confirmed Plan Of Treatment Future Test Test Name Order Date COLONOSCOPY 09/04/2018 Insurance Providers Payer Name Payer Address Payer Phone Subscriber Number Group Number Insured Name Patient Relationship to Insured Coverage Start Date Coverage End Date [facility] [address] [place] [address] [id number] SADI CARMICHAEL Self - patient is the insured Medical (General) History Medical History History ICD Code elevated cholesterol hemorrhoids gastroesophageal reflux disease anxiety Surgical History Surgery Date(Month/Year) umbilical hernia repair
--- OUTSIDE RECORDS SUMMARY | 2025-04-30 10:11 | XMS_ITS | Clinical Summary ---
Author Organization [facility] Address [address] [place] [address] Phone Care Team Providers Care Bait Digger Name Role Phone Soto France MD Primary Care Provider [phone]- [phone] Allergies Active Allergy Reactions Criticality Noted Date Comments Ibuprofen 09/04/2023 Other Reaction(s): Unknown Naproxen Unknown 09/04/2023 Yellow Jacket Venom 09/04/2023 Other Reaction(s): Unknown Medications clomiPRAMINE (ANAFRANIL) 50 MG capsule Take 100 mg by mouth nightly at bedtime. 08/19/2023 Active lisinopril (PRINIVIL,ZESTR IL) 5 MG tablet Take 5 mg by mouth daily. Active omeprazole (PRILOSEC) 20 MG capsule Take 20 mg by mouth daily. Active simvastatin (ZOCOR) 20 MG tablet Take 20 mg by mouth every evening. Active Active Problems Problem Noted Date Diagnosed Date Basal cell carcinoma of skin of other parts of f jorge a 09/04/2023 Family History Relation Status Comments Father Mother Social History Tobacco Use Types Packs/Day Years Used Date Smoking Tobacco: Former Cigarettes 1 9 - 1988 Smokeless Tobacco: Never Alcohol Use [...] on file Sexual Orientation Not on file Last Filed Vital Signs Vital Sign Reading Time Taken Comments Blood Pressure 142/93 10/25/2023 11:32 AM EST Pulse 97 10/25/2023 11:32 AM EST Temperature - - Respiratory Rate - - Oxygen Saturation 98% 10/25/2023 11:32 AM EST Inhaled Oxygen Concentration - - Weight - - Height - - Body Mass Index - - Plan of Treatment Health Maintenance Due Date Last Done Comments Adult Td,Tdap Booster 1964 CREATININE LEVEL 1964 LIPID PANEL 1964 POTASSIUM LEVEL 1964 DEPRESSION SCREENING 1976 SMOKING Hx and SMOKELESS TOBACCO SCREENING 02/16/1977 HEPATITIS C SCREENING 02/16/1982 HIV ONE-TIME SCREENING (18-6 5 YEARS) 02/16/1982 COLOGUARD 02/16/2009 COLONOSCOPY 02/16/2009 COLORECTAL CANCER SCREENING 02/16/2009 FIT TEST 02/16/2009 FOBT 02/16/2009 SIGMOIDOSCOPY 02/16/2009 VIRTUAL COLONOSCOPY 02/16/2009 PNEUMOCOCCAL VACCINES (50+ years) (1 of 1 - PCV) 02/16/2014 ZOSTER VACCINES (1 of 2) 02/16/2014 RSV VACCINE (1 - Risk 60-74 years 1-dose series) 2024 COVID-19 VACCINE (3 - 2023-2 5 season) 2024 02/23/2021, 02/02/2021 HEPATITIS A VACCINES Aged Out No long er eligible based on patient's age to complete this topic HIB VACCINES Aged Out No longer eligi ble based on patient's age to complete this topic MENINGOCOCCAL VACCINES (ACWY) Aged Out No longer eligible based on patient's age to complete this topic MENINGOCOCCAL VACCINES (B) Aged Out N o longer eligible based on patient's age to complete this topic Medical Devices Not on file Insurance 177 [employer]TAB[employer] [place] [facility] [employer] [facility] [address] [place] [facility] [employer] [facility] Care Teams Bait Digger Relationship Specialty Start Date End Date Soto France MD [address] [place] [id number] PCP - General Medical Oncology 08/28/23 Additional Source Comments The information contained in this document represents components of the legal health record. It is not the complete legal health record.[facility]
--- OUTSIDE RECORDS SUMMARY | 2025-04-30 10:11 | XMS_ITS | Encounter Summary ---
Author Organization [facility] Address [address] [facility] [address] [place] [address] Phone Care Team Providers Care Consumer Insights Intern Name Role Phone Soto France MD Primary Care Provider +1- [phone] Encounter Details Date Type Department Care Team (Late st Contact Info) Description 10/25/2023 Procedure Pass OR Admitting Dept - Virtual Department [address] [place] [address] Social History Tobacco Use Types Packs/Day Years [...] on filedocumented in this encounter Care Teams Consumer Insights Intern Relationship Specialty Start Date End Date Soto France MD [address] [place] [address] PCP - General Medical Oncology 08/28/23 documented as of this encounter Additional Source Comments The information contained in this document represents components of the legal health record. It is not the complete legal health record.[facility]
--- OUTSIDE RECORDS SUMMARY | 2025-04-30 10:11 | XMS_ITS | Patient Health Record ---
Author Organization Soto France III, MD Address [address] [place] [address] [place] [address] Care Team Providers Care Paintless Dent Repair Technician Name Role Phone Soto France Primary Care Provider Allergies Allergen (clinical drug ingredient) Drug/Non Drug Allergy documented on EMR Reaction Allergy Type Onset Date Status ibuprofen Ibuprofen Unknown Drug Allergy Active Yellow Jacket Venom Unknown Drug Allergy Active naproxen Naprosyn Unknown Drug Allergy Active Results Component Value Reference Range Notes Complete Blood Count Auto Di ff Reviewed date:10/28/2024 03:12:14 PM Interpretation: Performing Lab:[facility], [address] [place] [phone] Notes/Report: White Blood Count 6.7 4.8-10.8 X10*3/uL [...] NRBC Abs Auto 0.000 0.0-0.012 X10*3/uL Comprehensive [place]. Panel Fa st Reviewed date:10/28/2024 03:12:14 PM Interpretation: Performing Lab:[facility], [address] [place] [phone] Notes/Report: Sodium 141 135-145 mmol/L Potassium 4.1 [...] Panel Reviewed date:10/28/2024 03:12:14 PM Interpretation: Performing Lab:[address] [phone] Notes/Report: Triglycerides 132 <150 mg/dL Desirable Triglyceride: [...] Antigen Reviewed date:10/28/2024 03:12:14 PM Interpretation: Performing Lab:[facility], [address] [place] [phone] Notes/Report: Prostate Specific Antigen 1.95 <0.05-4.0 ng/mL PSA methodology: Mart Alinity i Chemiluminescent Microparticle Immunoassay (CMIA) Complete Blood Count Auto Di ff Reviewed date:04/28/2025 02:45:40 PM Interpretation: Performing Lab:[address] [phone] Notes/Report: White Blood Count 7.2 4.8-10.8 X10*3/uL Red Blood Count 5.27 4.60-5.80 X10*6/uL Hemoglobin 15.7 14.0-18.0 g/dl Hematocrit 46.6 42.0-52.0 % Mean Corpuscular Volume 88.4 80.0-98.0 fL Mean Corpuscular Hemoglobin 29.8 27.0-33.0 pg Mean Corpuscular HGB Conc 33.7 31.0-36.0 g/dl Red Cell Distribution Width 12.5 11.0-16.0 % Platelet Count 344 160-400 X10*3/uL Mean Platelet Volume 9.6 9.4-12.4 fL Neutrophils Percent Auto 55.9 45-73 % Imm Gran Pct Auto 0.1 0.0-0.4 % Lymphocytes Percent Auto 33.4 20-40 % Monocytes Percent Auto 8.0 2-11 % Eosinophils Percent Auto 2.2 0-4 % Basophils Percent Auto 0.4 0-2 % NRBC Pct Auto 0.0 0.0-0.2 /100WBC Neutrophils Absolute Auto 4.0 2.0-8.3 x10*3/u L Imm Gran Abs Auto 0.01 0.00-0.03 X10*3/uL Lymphocytes Absolute Auto 2.4 1.2-4.9 X10*3/u L Monocytes Absolute Auto 0.6 0.1-1.2 X10*3/uL Eosinophils Absolute Auto 0.2 0.0-0.4 X10*3/u L Basophils Absolute Auto 0.0 0.0-0.2 X10*3/uL NRBC Abs Auto 0.000 0.0-0.012 X10*3/uL Comprehensive [place]. Panel Fa st Reviewed date:04/28/2025 02:45:40 PM Interpretation: Performing Lab:[facility], [address] [place] [phone] Notes/Report: Sodium 140 135-145 mmol/L Potassium 4.1 3.3-5.1 mmol/L Chloride 108 96-108 mmol/L Carbon Dioxide 23 22-29 mmol/L Anion Gap 13 12-20 Blood Urea Nitrogen 21 9-16 mg/dL Creatinine 1.20 0.5-1.4 mg/dL Estimated Glomerular Filt Rate > 60 Chronic Kidney Disease: Estimated GFR < 60 mL/min/1.73m2 Severe Kidney Disease: Estimated GFR < 15 mL/min/1.73m2 Glucose Fasting 106 60-99 mg/dL A fasting glucose from 100-125 mg/dl is considered impaired (pre-diabetes). Calcium 9.5 8.4-10.2 mg/dL Bilirubin Total 0.6 0.0-1.0 mg/dL Aspartate Amino Transferase 38 5-37 U/L Alanine Aminotransferase 42 0-40 U/L Total Protein 6.6 6.5-8.0 g/dL Albumin Level 4.3 3.5-5.0 g/dL Alkaline Phosphatase 85 39-117 U/L Lipid Panel Reviewed date:04/28/2025 02:45:40 PM Interpretation: Performing Lab:[facility], [address] [place] [phone] Notes/Report: Triglycerides 144 <150 mg/dL Desirable Triglyceride: less than 150 mg/dL Borderline High Triglyceride 150-199 mg/dL High Triglyceride: 200-499 mg/dL Very High Triglyceride: greater than or equal to 5OO mg/dL Cholesterol 198 <200 mg/dL Desirable Cholesterol: less than 200 mg/dL Borderline High Cholesterol: 200-239 mg/dL High Cholesterol: greater than 239 mg/dL LDL Cholesterol Calculated 131 <100 mg/dL Desirable LDL: less than 100 mg/dL Near Optimal/Above Optimal LDL: 110-129 mg/dL Borderline High LDL: 130-159 mg/dL High LDL: 160-189 mg/dL Very High LDL: greater than or equal to 190 mg/dL HDL Cholesterol 39 >40 mg/dL Desirable HDL: greater than 40 mg/dL Note: This HDL assay may give artificially low results in patients with liver disease. Prostate Specific Antigen Reviewed date:04/28/2025 02:45:40 PM Interpretation: Performing Lab:[facility], [address] [place] [phone] Notes/Report: Prostate Specific Antigen 2.55 <0.05-4.0 ng/mL PSA methodology: Mart Alinity i [...] Provider Speciality Internal M edicine Referred Organization [facility] michelle Referred Provider Damaris Mo Referred Address [address] [place] [phone], Referred Provider Specialty Nurse Jones Craven Notes Arleen Roe CMA 11/02 10:59:28 AM > REFERRAL/ DEMO/PROGRESS NOTE FAXED TO Bhupinder LAWSON Suzanne [facility] 11/10/2024 03:22:20 PM >Regino Mo RN spoke with patient over the phone and there is a note in the record Referral Priority Routine Reason bilateral thumb pain Diagnosis 1 Thumb pain, unspecif ied laterality (M79.646) Referral Organization Soto France III, MD Referring Provider First Name Soto Referring Provider Last Name France Referring Provider Speciality Internal edicine Referred Provider [facility] Referred Provider Specialty Rheumatology General Notes Bhupinder Arleen [facility] 02/01 09:23:58 AM >ref/demo/progress notes faxed to [facility], Arleen Roe [facility] 03/11/2025 03:18:19 PM >called [facility] was told pt has appt on 03/26/2025 at 12:15pm Referral Priority Routine Referral Appointment Date 03/26/2025 Reason Evaluate and Treat Needs Sleep Study Diagnosis 1 Chronic fatigue, uns pecified (R53.82) Diagnosis 2 Daytime somnolence ( R40.0) Referral Organization Soto France III, MD Referring Provider First Name Soto Referring Provider Last Name France Referring Provider Speciality Internal edicine Referred Provider [facility] er, Pulmonology Referred Provider Specialty Pulmonary [place] Referral Priority Routine Medications Medication SIG (Take, [...] bedt amanda Orally Once a day Active Immunizations Vaccine [...] Problem Status W/U Status Risk Notes Problem 6055658 Former smoker (Z87.891) Active confirmed He is highly motivated not to smoke. We discussed a plan to prevent relapse in times of stress and illness. Problem 653477193 Overweight (E66.3) Active confirmed He has gained 30 pounds his body mass index is 29. We discussed diet and nutrition and a weight loss strategy. He will try to lose weight at a rate of one half of a pound per week. Problem [id number] Obesity (BMI 30.0-34.9) (E66.9) Active confirmed We have discussed his diet and his nutrition. He is trying to lose weight. We have reviewed his weight loss strategy. We made a plan to lose weight at a rate of one half of a pound per week. Problem 09815392 Anxiety (F41.9) Active confirmed He has been taking his medication. He is beginning to feel better. His issues at work or less pressing now. Problem 712945005 Mixed hyperlipidemia (E78.2) Active confirmed The current fasting lipid profile shows his cholesterol to be in the target range. I recommended weight loss and consumption of a healthy diet. We discussed nutrition today. Problem Chronic fatigue syndrome (disorder) (88031004) Chronic fatigue, unspecified (R53.82) Active confirmed Evaluation of the phalanx of increased fatigue and lower extremity heaviness will be undertaken he will have thyroid function test and a morning testosterone. If necessary he will have a cortisol stimulation test. It may be that he is simply bereaved and depressed and experiencing loss. Problem 904321801 GERD without esophagitis (K21.9) Active confirmed His reflux symptoms have been well-controlled with bcbi-hnb-pazhht r medication. These were continued. Problem Benign prostatic hyperplasia (763621351) BPH (benign prostatic hyperplasia) (N40.0) Active confirmed He rises from sleep on the average of once a night. We have discussed several lifestyle modifications he could make to avoid nocturia. Problem Erectile dysfunction (N52.9) Active confirmed This problem has been treated with medication. Problem 56779677 Memory loss (R41.3) Active confirmed He is no longer complaining about his memory. He seemed intact today. Problem 91752911 Hiatal hernia (K44.9) Active confirmed His symptoms have been mild and limited to the epigastric area. His nutritional status is good and his weight is stable. Problem Basal cell carcinoma (3756553) Basal cell carcinoma (C44.91) Active confirmed The lesion was excised from the right side of his head this morning. We will await the pathology and the margins report. Problem 393193989 History of umbilical hernia (Z87.19) Active confirmed He is free o f any symptoms at this time. He feels occasional pressure with sustained abdominal contraction but is otherwise free of pain Problem 640076838 History of depression (Z86.59) Active confirmed He was instructed to continue to see his therapist weekly and to take his antidepressant medication. He will be seen here frequently and his medications adjusted. It is felt that the therapist can get him to see a prescriber. Problem Daytime somnolence (404369405862) Daytime somnolence (R40.0) Active confirmed Problem 135565124 Renal cyst, left (N28.1) Active confirmed A repeat image of the kidney is due. Problem 0429407962 Persistent depressive disorder (F34.1) Active confirmed He was continued on his current antidepressant. Close followup was arranged. There was no indication of self harm or suicidal intent. Vital Signs Heart Rate 96 /min 04/28/2025 Temperature 98.5 degrees Fahrenheit 04/28/2025 Respiratory Rate 15 /min 04/28/2025 Oximetry 98 % 04/28/2025 Blood pressure diastolic 79 mm Hg 04/28/2025 Height 69 in 04/28/2025 Blood pressure systolic 134 mm Hg 04/28/2025 Weight 198 lbs 04/28/2025 BMI 29.24 kg/m2 04/28/2025 Encounters Encounter Location Date Provider Diagnosis Soto France III, MD [address] [place] [address] [place] [id number] 07/02/2024 Soto France Mixed hyperlipidemia E78.2 ; History of depression Z86.59 ; BPH (benign prostatic hyperplasia) N40.0 ; Overweight E66.3 ; Former smoker Z87.891 ; GERD without esophagitis K21.9 ; History of umbilical hernia Z87.19 and Hiatal hernia K44.9 Soto France III, MD [address] [place] [address] [place] [id number] 10/28/2024 Soto France History of umbilical hernia Z87.19 ; Persistent depressive disorder F34.1 ; Hiatal hernia K44.9 ; GERD without esophagitis K21.9 ; Mixed hyperlipidemia E78.2 ; Former smoker Z87.891 ; BPH (benign prostatic hyperplasia) N40.0 and Overweight E66.3 Soto France III, MD [address] [place] [address] [place] [id number] 01/27/2025 Soto France Overweight E66.3 ; History of umbilical hernia Z87.19 ; Hiatal hernia K44.9 ; GERD without esophagitis K21.9 ; Mixed hyperlipidemia E78.2 ; Former smoker Z87.891 ; Anxiety F41.9 ; Renal cyst, left N28.1 and History of depression Z86.59 Soto France III, MD [address] [place] [address] [place] [id number] 04/28/2025 Soto France Chronic fatigue, unspecified R53.82 ; Erectile dysfunction N52.9 ; Former smoker Z87.891 ; Overweight E66.3 ; History of umbilical hernia Z87.19 ; Hiatal hernia K44.9 ; GERD without esophagitis K21.9 ; Mixed hyperlipidemia E78.2 ; Persistent depressive disorder F34.1 and Basal cell carcinoma C44.91 Soto France III, MD [address] [place] [address] [place] [id number] 09/04/2024 Soto France III, MD [address] [place] [address] [place] [phone] 10/21/2024 Soto France III, MD [address] [place] [address] [place] [phone] 11/03/2024Aruna France Assessments Encounter Date Diagnosis (ICD Code) [...] but is otherwise free of pain 04/28/2025 Chronic fatigue, unspecified (ICD-10 - R53.82) [...] This problem has been treated with medication. 07/02/2024 BPH (benign prostatic hyperplasia) (ICD-10 - [...] good and his weight is stable. 04/28/2025 Former smoker (ICD-10 - Z87.891) He is highly motivated not to smoke. We discussed a plan to prevent relapse in times of stress and illness. 07/02/2024 Overweight (ICD-10 - E66.3) He has lost 2 pounds his body mass index is 28.2. We discussed diet and nutrition and a weight loss strategy. He will try to lose weight at a rate of one half of a pound per week. 10/28/2024 GERD without esophagitis (ICD-10 - K21.9) His reflux symptoms have been well-controlled with aisf-eab-bobfcgb medication. These were continued. 01/27/2025 GERD without esophagitis (ICD-10 - K21.9) His reflux symptoms have been well-controlled with wace-cap-kgtbeny medication. These were continued. 04/28/2025 Overweight (ICD-10 - E66.3) He has [...] healthy diet. We discussed nutrition today. 04/28/2025 History of umbilical hernia (ICD-10 - Z87.19) He is free of any symptoms at this time. He feels occasional pressure with sustained abdominal contraction but is otherwise free of pain 07/02/2024 GERD without esophagitis (ICD-10 - K21.9) His reflux symptoms have been well-controlled with fmxn-aqg-inuayyz medication. These were continued. 10/28/2024 Former smoker (ICD-10 - Z87.891) He is highly motivated not to smoke. We discussed a plan to prevent relapse in times of stress and illness. 01/27/2025 Former smoker (ICD-10 - Z87.891) He is highly motivated not to smoke. We discussed a plan to prevent relapse in times of stress and illness. 04/28/2025 Hiatal hernia (ICD-10 - K44.9) His symptoms have been mild and limited to the epigastric area. His nutritional status is good and his weight is stable. 07/02/2024 History of umbilical hernia (ICD-10 - [...] issues at work or less pressing now. 04/28/2025 GERD without esophagitis (ICD-10 - K21.9) His reflux symptoms have been well-controlled with surt-imv-mbullrk medication. These were continued. 07/02/2024 Hiatal hernia (ICD-10 - K44.9) His [...] repeat image of the kidney is due. 04/28/2025 Mixed hyperlipidemia (ICD-10 - E78.2) The current fasting lipid profile shows his cholesterol to be in the target range. I recommended weight loss and consumption of a healthy diet. We discussed nutrition today. 01/27/2025 History of depression (ICD-10 - Z86.59) He was instructed to continue to see his therapist weekly and to take his antidepressant medication. He will be seen here frequently and his medications adjusted. It is felt that the therapist can get him to see a prescriber. 04/28/2025 Persistent depressive disorder (ICD-10 - F34.1) He was continued on his current antidepressant. Close followup was arranged. There was no indication of self harm or suicidal intent. 04/28/2025 Basal cell carcinoma (ICD-10 - C44.91) The lesion was excised from the right side of his head this morning. We will await the pathology and the margins report. Plan Of Treatment Pending Test Test Name [...] 05/01/2022 LIPID PANEL 12/29/2018 LIPID PANEL 12/13/2020 LDH 04/28/2025 FREE T4 (FT4) 05/01/2022 FREE T4 (FT4) 04/22/2020 TSH (THYROID STIMULATING HORMONE) 2024 TSH (THYROID STIMULATING HORMONE) 2021 TSH (THYROID STIMULATING HORMONE) 2019 BRAIN NATRIURETIC PEPTIDE (BNP) 04/28/20 25 PSA, TOTAL 10/02/2023 PSA, TOTAL 01/27/2025 PSA, [...] DIFF 06/25/2023 CBC WITH AUTO DIFF 07/02/2024 Creatine Kinase Total 04/28/2025 Lipid Panel 07/02/2024 Lipid Panel 07/20/2022 Lipid Panel 10/25/2023 Lipid Panel 10/02/2023 Lipid Panel 01/27/2025 Lipid Panel 06/25/2023 Vitamin B12 and Folate 04/28/2025 Vitamin D 25-OH Total 07/20/2022 Free T4 (Free Thyroxine) 04/28/2025 Testosterone, Total 04/28/2025 Next Appt Details Provider Name:Soto France, 05/12/2025 03:30:00 PM, [address] [place] [address] [address], [place], [phone], Provider Name:Soto France, 11/01/2025 03:00:00 PM, [address] [place] [address] [address], [place], [phone], Insurance Providers Payer Name Payer Address Payer Phone Subscriber Number Group Number Insured Name Patient Relationship to Insured Coverage Start Date Coverage End Date MEDICARE NGS [address] [place] [address] [id number] SADI SANCHEZ Self - patient is the insured [place] [address] [place], [place] [id number] [phone] [id number] SADI SANCHEZ Self - patient is the [...] History Reason Date(Month/Year) No history Memory loss [facility] 10/2020 [facility] few hours 04/2020 allergic reaction 10/2018
[2025-04-30 11:19] LABS: B Type Natriuretic Peptide < 10 pg/mL (<100)
[2025-04-30 11:50] LABS: Free T4 (Free Thyroxine) 0.74 ng/dL (0.71-1.85); Thyroid Stimulating Hormone 0.85 uIU/mL (0.32-4.0)
[2025-04-30 12:10] LABS: Folate 10.7 ng/mL (> or = 4.0); Vitamin B12 914 pg/mL (200-900)
== END 2025-04-30 09:21 | disposition home or self-care (01) ==
LOC: HO.LAB 09:20
PROVIDERS: PCP Internal Medicine Medical Oncology; Visit Provider Internal Medicine Medical Oncology
DX: I95.1 Orthostatic hypotension (principal); E78.2 Mixed hyperlipidemia; F34.1 Dysthymic disorder; R53.82 Chronic fatigue, unspecified; E66.3 Overweight; N52.9 Male erectile dysfunction, unspecified
CPT/HCPCS: 36415; 82550; 82607; 82746; 83615; 83880; 84403; 84439; 84443